=== PATIENT | female | born 1935 | race Caucasian/White ===

== ENCOUNTER 2017-05-01 13:52 | Outpatient (CLI) | payer MEDICARE, MEDICAID ==
--- NOTE | 2017-05-01 16:04 | ULT ---
ULTRASOUND WITH DOPPLER DUPLEX VENOUS LEFT LOWER EXTREMITY: CPT: 32997 ICD-10-PCS: B54D INDICATIONS: Left leg edema. TECHNIQUE: Color-flow Doppler, spectral wave-form analysis of pulsed Doppler, and Whiteside-scale imaging with compr ession and augmentation were used to evaluate the bilateral common femoral, femoral, popliteal, post erior tibial, and superficial femoral veins, and the proximal portions of the profunda femoral and g reater saphenous veins. FINDINGS: Appropriate compressibility and flow without evidence of DVT of the imaged left lower extremity. IMPRESSION: No deep venous thrombosis. POS: [facility]
== END 2017-05-01 13:53 | disposition home or self-care (01) ==
LOC: SCSULT 13:52
PROVIDERS: ATTEND Family Medicine
DX: R60.0 Localized edema (principal)

== ENCOUNTER 2017-07-05 09:19 | Outpatient (CLI) | payer MEDICARE, MEDICAID ==
--- NOTE | 2017-07-05 10:51 | ULT ---
HEPATIC ULTRASOUND WITH DOPPLER: History: Cirrhosis. Comparison: None. Technique: Grayscale, color flow, doppler imaging, and spectral waveform analysis was performed of th e liver. FINDINGS: The head of the pancreas has a normal echotexture. The remainder of the pancreas is obscured by bowel gas. There is right renal cortical thinning. The right kidney is not adequately accessed on this exam. Gallbladder is markedly filled with sludge and stones. The gallbladder is distended measuring 10.2 cm . No pericholecystic fluid. No Alcantara's sign. Gallbladder wall thickness is 0.25 cm. Common bile duct diameter is 0.4 cm. Spleen is enlarged measuring 15.1 cm. Hepatic parenchyma has a heterogeneous echotexture. Mild lobulation of the hepatic margin. No obvious hepatic mass. HEPATIC DOPPLER: There is patency and appropriate directional flow main portal vein, right portal vein, left portal ve in, hepatic artery, left hepatic vein, middle hepatic vein, middle hepatic vein, right hepatic vein, splenic vein and arteries. IMPRESSION: 1. Normal hepatic doppler. 2. Markedly distended gallbladder filled with sludge and stones. There is no evidence of cholecystiti s. If there is concern, consider HIDA scan. 3. Cirrhotic changes of the liver with nodularity of the hepatic margin. No obvious hepatic masses. 4. Splenomegaly. POS: [facility]
== END 2017-07-05 09:20 | disposition home or self-care (01) ==
LOC: ULT 09:19
PROVIDERS: ATTEND Internal Medicine Gastroenterology
DX: K74.60 Unspecified cirrhosis of liver (principal); K80.20 Calculus of gallbladder without cholecystitis without obstruction; R16.1 Splenomegaly, not elsewhere classified; R63.4 Abnormal weight loss
CPT/HCPCS: 76705

== ENCOUNTER 2018-03-28 14:15 | Outpatient (CLI) | payer MEDICARE, MEDICAID ==
--- NOTE | 2018-03-28 15:21 | CT ---
CT BRAIN WITHOUT CONTRAST: Date: 03/28/18 HISTORY: Syncope and collapse, fall. FINDINGS: There are changes of cortical atrophy and chronic small vessel ischemic disease. No evidence of infar ct, hemorrhage, midline shift, or abnormal extra-axial fluid collections are seen. A 4.0 mm colloid c yst is seen at the foramen of Monro. The ventricular size is appropriate and the basilar cisterns ar e patent. The bony calvarium is intact. The visualized paranasal sinuses and mastoid air cells are we ll aerated. IMPRESSION: No CT evidence of acute intracranial process. POS: [facility]
== END 2018-03-28 14:16 | disposition home or self-care (01) ==
LOC: BICCT 14:15
PROVIDERS: ATTEND Internal Medicine Cardiovascular Disease
DX: R55 Syncope and collapse (principal)
CPT/HCPCS: 70450

== ENCOUNTER 2018-06-05 05:20 | Emergency (ER) | payer MEDICARE, MEDICAID ==
--- NOTE | 2018-06-05 08:05 | RAD ---
THREE VIEWS LEFT SHOULDER: HISTORY: Fall. Pain. COMPARISON: None. FINDINGS: Glenohumeral joint space is preserved. No evidence of fracture with regards to the proximal left hum erus. There is a displaced fracture involving the mid portion of the left clavicle. Ribs are unrema rkable. IMPRESSION: Left clavicle fracture. Results of the study discussed with Dr. Treadwell 06/05/2018 at 7:37 a.m. CODE CR POS: [facility]
== END 2018-06-05 07:02 | disposition home or self-care (01) ==
LOC: ERS 05:20
DX: S43.402A Unspecified sprain of left shoulder joint, initial encounter (principal); S80.211A Abrasion, right knee, initial encounter; J45.909 Unspecified asthma, uncomplicated; E11.9 Type 2 diabetes mellitus without complications; Z79.899 Other long term (current) drug therapy; Z79.82 Long term (current) use of aspirin; Z79.4 Long term (current) use of insulin; W19.XXXA Unspecified fall, initial encounter
CPT/HCPCS: 36416

== ENCOUNTER 2018-10-21 08:52 | Outpatient (CLI) | payer MEDICARE, MEDICAID ==
--- NOTE | 2018-10-21 11:35 | ULT ---
LIVER ULTRASOUND INCLUDING COLOR AND SPECTRAL DOPPLER IMAGING: Date: 10/21/18 HISTORY: Cirrhosis. COMPARISON: 07/05/17. FINDINGS: Coarse altered liver echogenicity with some nodularity which certainly could be consistent with cirrh osis. Gallbladder is distended and contains extensive gallstones without overt gallbladder wall thick ening or pericholecystic fluid. Common bile duct 0.2 cm. Splenomegaly. Vascular duplex demonstrates antegrade hepatic venous and hepatic arterial and portal venous flow. IMPRESSION: Extensive gallstones within the gallbladder, without overt gallbladder wall thickening or pericholecy stic fluid. Coarse altered liver echogenicity with some nodularity, which certainly could be consiste nt with cirrhosis. Splenomegaly. Antegrade hepatic and portal venous flow. POS: [facility]
== END 2018-10-21 08:53 | disposition home or self-care (01) ==
LOC: ULT 08:52
PROVIDERS: ATTEND Internal Medicine Nephrology
DX: K74.60 Unspecified cirrhosis of liver (principal); E11.22 Type 2 diabetes mellitus with diabetic chronic kidney disease; N18.3 Chronic kidney disease, stage 3 (moderate); I25.10 Atherosclerotic heart disease of native coronary artery without angina pectoris; K80.80 Other cholelithiasis without obstruction; R16.1 Splenomegaly, not elsewhere classified
CPT/HCPCS: 76705; 76770

== ENCOUNTER 2018-11-19 16:47 | Emergency (ER) | payer MEDICARE, MEDICAID ==
[2018-11-19 19:52] LABS: #Eosinphils 0.1 thou/uL (0.0-0.7); #Lymphocytes 0.8 thou/uL (1.20-3.40); #Monocytes 0.5 thou/uL (0.11-0.59); %Basophils 0.3 % (0.0-1.0); %Eosinophils 2.5 % (0.0-10.0); %Monocytes 9.3 % (0.0-10.0); %Neutrophils 72.9 % (42.0-75.0); Hemoglobin 11.6 g/dL (12.0-16.0); Mean Corpuscular HGB CONC 33.4 g/dL (32.0-36.0); Mean Corpuscular Hemoglobin 28.9 pg (27.0-31.0); Mean Corpuscular Volume 86.5 fL (78.0-98.0); Mean Platelet Volume 8.3 fL (7.4-10.4); Platelet Count 152 thou/uL (130-400); RBC Distribution Width 12.7 % (11.5-14.5); Red Blood Cell (RBC) Count 4.01 mill/uL (4.20-5.40); White Blood Cell (WBC) Count 5.4 thou/uL (4.8-10.8)
[2018-11-19 20:12] LABS: Anion Gap 15 mmol/L (10-20); BUN (Urea Nitrogen) 24 mg/dL (9.8-20.1); Calc. Creatinine Clearance 0 mL/min (70-130); Calcium 9.9 mg/dL (7.8-10.44); Carbon Dioxide 26 mmol/L (23-31); Chloride 99 mmol/L (98-107); Estimated GFR-MDRD 32; Glucose 289 mg/dL (83-110); Potassium 4.3 mmol/L (3.5-5.1); Sodium 136 mmol/L (136-145)
== END 2018-11-20 00:43 | disposition home or self-care (01) ==
LOC: ERS 16:47
DX: I95.9 Hypotension, unspecified (principal); R42 Dizziness and giddiness; J45.909 Unspecified asthma, uncomplicated; E11.9 Type 2 diabetes mellitus without complications
CPT/HCPCS: 36416; 80048; 85025; 96360; 96361

== ENCOUNTER 2019-04-02 07:43 | Outpatient (CLI) | payer MEDICARE, MEDICAID ==
--- NOTE | 2019-04-02 09:59 | ULT ---
PELVIC ULTRASOUND: Transabdominal ultrasound of pelvis performed. The patient is unable to tolerate endovaginal exam. INDICATION: Right lower quadrant pain. FINDINGS: Uterus is small consistent with the patient's age. The uterus appears unremarkable. The right ovary is visualized and is unremarkable. Color Doppler with spectral analysis shows blood flow to the rig ht ovary. The left ovary is not identified. No fluid or mass seen. IMPRESSION: Unremarkable pelvic ultrasound. The left ovary is not identified. POS: [facility]
== END 2019-04-02 07:44 | disposition home or self-care (01) ==
LOC: BICULT 07:43
PROVIDERS: ATTEND Physician Assistant Medical
DX: K74.60 Unspecified cirrhosis of liver (principal); R10.30 Lower abdominal pain, unspecified
CPT/HCPCS: 76856; 93976

== ENCOUNTER 2019-04-29 08:47 | Outpatient (CLI) | payer MEDICARE, MEDICAID ==
--- NOTE | 2019-04-29 10:48 | ULT ---
HEPATIC SONOGRAM WITH DUPLEX EVALUATION: HISTORY: Cirrhosis. FINDINGS: The gallbladder is surgically absent. The common duct is 0.4 cm. The liver is heterogeneous with a no dular contour. Small amount of free fluid. The spleen measures up to 17.2 cm. Good color and spectral Doppler flow within the hepatic and splenic arteries. Portal venous flow is t owards the liver. Hepatic venous flow is towards the IVC. IMPRESSION: 1. Status post cholecystectomy. No evidence of biliary obstruction. 2. Cirrhotic appearance of the liver. Findings of portal venous hypertension include moderate splenom egaly and a small amount of ascites. 3. Appropriate directional portal venous flow. POS: [facility]
== END 2019-04-29 08:48 | disposition home or self-care (01) ==
LOC: BICULT 08:47
PROVIDERS: ATTEND Internal Medicine Gastroenterology
DX: K74.60 Unspecified cirrhosis of liver (principal); R10.30 Lower abdominal pain, unspecified; Z90.49 Acquired absence of other specified parts of digestive tract
CPT/HCPCS: 36415; 76705; 80053; 82105; 85025

== ENCOUNTER 2019-06-09 07:22 | Day surgery (SDC) | payer MEDICARE, MEDICAID ==
[2019-06-08 17:54] VITALS: BMI 23.1
[~2019-06-09 07:22] MED LIST: EPINEPHrine 0.3 MG in Ophthalmic Irrigation Solution 500 ML IRR SCH
[2019-06-09] MEDS ORDERED: Phenylephrine 2.5% Ophth Soln 5 ML BOT ONE (08:11)
[2019-06-09] MEDS ORDERED: Cyclopentolate 1% Opth Drop 2 ML BOT ONE (08:11)
[2019-06-09] MEDS ORDERED: Fentanyl 100 MCG/2 ML VIAL ONE (08:49)
[2019-06-09] MEDS ORDERED: Triamcinolone 40 MG/ML VIAL ONE (09:58)
[2019-06-09] MEDS ORDERED: Lidocaine 4% PF 5 ML AMP ONE (09:58)
[2019-06-09] MEDS ORDERED: Lidocaine 1% PF 5 ML VIAL ONE (09:58)
[2019-06-09] MEDS ORDERED: Bupivacaine PF 0.75% SDV 10 ML ONE (09:58)
[2019-06-09] MEDS ORDERED: Maxitrol 0.1% Opth Oint 3.5 GM TUBE ONE (09:58)
[2019-06-09] MEDS ORDERED: PROPOFOL 200 MG/20 ML VIAL ONE (09:58)
[2019-06-09] MEDS ORDERED: CEFAZOLIN 1 GM VIAL ONE (09:58)
--- NOTE | 2019-06-09 14:29 | OP ---
DATE OF PROCEDURE: 06/09/2019 PRINCIPAL PREOPERATIVE DIAGNOSIS: Vitreomacular traction syndrome, right eye. POSTOPERATIVE DIAGNOSIS: Vitreomacular traction syndrome, right eye. NAME OF PROCEDURES PERFORMED: 1. 25-gauge pars plana vitrectomy, right eye. 2. Membrane peel, right eye. ESTIMATED BLOOD LOSS: None. SPECIMENS REMOVED: None. COMPLICATIONS: None. ANESTHESIA: MAC with retrobulbar block. SUMMARY OF OPERATION: The patient was identified in the preoperative holding area, where the correct eye being the right eye was marked for surgery. The patient was taken to the operating room, where MAC anesthesia was induced. A retrobulbar block was administered to the right eye. The block consisted of 1:1 ratio of 4% lidocaine and 0.75% Marcaine. Total of 5 mL was administered. The right eye was then prepped and draped in the usual sterile ophthalmic fashion for surgery. A wire-clip lid speculum was placed. A standard 25-gauge pars plana vitrectomy platform was fashioned with trocars placed approximately 3.5 mm from the limbus. The infusion was noted to be within the vitreous cavity prior to being turned on to an infusion pressure of 30 mmHg. The light pipe and microvitrector were introduced in the eye under visualization of the BIOM viewing system. A careful core vitrectomy was performed followed by injection of Kenalog. Subsequently, a gentle posterior vitreous detachment was created, which allowed for significant relaxation of the retina. Subsequently, a peripheral shave vitrectomy was performed. A 360-degree scleral depressed exam of the periphery revealed no defects. A close examination of the macula under high magnification revealed no macular hole. The cannulas were sequentially removed and all sclerotomies were noted to be watertight. Subconjunctival Ancef and Kenalog were injected. The wire-clip lid speculum was removed followed by application of TobraDex ophthalmic ointment and a light patch and shield. The patient tolerated the procedure well and was taken to the outpatient recovery room in good condition. Job ID: [id number]
== END 2019-06-09 10:40 | disposition home or self-care (01) ==
LOC: SDC 07:22
PROVIDERS: ATTEND Ophthalmology Retina Specialist
PROC: 08T43ZZ Resection of Right Vitreous, Percutaneous Approach (ICD-10-PCS; principal; 2019-06-09)
DX: H43.821 Vitreomacular adhesion, right eye (principal); E10.9 Type 1 diabetes mellitus without complications; M19.90 Unspecified osteoarthritis, unspecified site; I10 Essential (primary) hypertension; E78.5 Hyperlipidemia, unspecified; I25.10 Atherosclerotic heart disease of native coronary artery without angina pectoris; Z79.82 Long term (current) use of aspirin; Z79.899 Other long term (current) drug therapy; Z88.2 Allergy status to sulfonamides; Z88.8 Allergy status to other drugs, medicaments and biological substances; Z91.013 Allergy to seafood; Z91.041 Radiographic dye allergy status
CPT/HCPCS: 36416; J0171; J0690; J2001; J2704; J3010; J3301; J3490

== ENCOUNTER 2019-06-18 09:13 | Day surgery (SDC) | payer MEDICARE, MEDICAID ==
[2019-06-17 16:32] VITALS: BMI 23.1
[2019-06-18 09:26] LABS: #Eosinphils 0.1 thou/uL (0.0-0.7); #Lymphocytes 0.8 thou/uL (1.20-3.40); #Monocytes 0.7 thou/uL (0.11-0.59); %Basophils 0.7 % (0.0-1.0); %Eosinophils 1.9 % (0.0-10.0); %Lymphocytes 11.5 % (21.0-51.0); %Monocytes 10.4 % (0.0-10.0); %Neutrophils 75.5 % (42.0-75.0); Hemoglobin 10.8 g/dL (12.0-16.0); Mean Corpuscular HGB CONC 31.6 g/dL (32.0-36.0); Mean Corpuscular Hemoglobin 24.7 pg (27.0-31.0); Mean Corpuscular Volume 78.1 fL (78.0-98.0); Mean Platelet Volume 6.8 fL (7.4-10.4); Platelet Count 386 thou/uL (130-400); RBC Distribution Width 14.7 % (11.5-14.5); Red Blood Cell (RBC) Count 4.37 mill/uL (4.20-5.40); White Blood Cell (WBC) Count 6.6 thou/uL (4.8-10.8)
[2019-06-18 09:42] LABS: INR-International Normal Ratio 1.3
[2019-06-18 09:43] LABS: PTT 65.2 SEC (22.9-36.1)
[2019-06-18 12:11] VITALS: BP 133/72; TEMP 97.4
--- NOTE | 2019-06-18 12:12 | ULT ---
Exam: Ultrasound guided paracentesis HISTORY: Ascites COMPARISON: None FINDINGS: Successful ultrasound-guided paracentesis. Total of 5 L of normal appearingascites was aspi rated. TECHNIQUE: Consent obtained reformatory ultrasound-guided paracentesis. Right lower quadrant was deem ed appropriate. Skin was prepped and draped in a sterile fashion. 1% lidocaine, buffered with sodium bicarbonate was used for local anesthesia. Under ultrasound guidance, a 5 Dutch 7 cm Yueh cat heter is advanced in the peritoneal space. A total of 5 L of normal appearingascites was aspirated. No immediate or postprocedural complications IMPRESSION: Successful ultrasound-guided paracentesis.
[2019-06-18 12:59] LABS: RBC Count-Automated (BF) 348 /cumm; WBC/Nucleated-Auto (BF) 725 uL
[2019-06-18 13:05] LABS: Body Fluid Source Ascites Body Fluid
[2019-06-18 13:06] LABS: BF Color Yellow; Clarity Hazy (Clear); Tube # EDTA
[2019-06-18 13:14] LABS: BF Segmented Neutrophils 14 %; Cell Count Non Hematic 85 %; Lymphocytes 1 %
== END 2019-06-18 11:35 | disposition home or self-care (01) ==
LOC: ULT 09:13
PROVIDERS: ATTEND Internal Medicine Nephrology
PROC: 0W9G3ZZ Drainage of Peritoneal Cavity, Percutaneous Approach (ICD-10-PCS; principal; 2019-06-18)
DX: R18.8 Other ascites (principal); I10 Essential (primary) hypertension; E10.9 Type 1 diabetes mellitus without complications; J45.909 Unspecified asthma, uncomplicated; I25.10 Atherosclerotic heart disease of native coronary artery without angina pectoris; M19.90 Unspecified osteoarthritis, unspecified site; Z79.4 Long term (current) use of insulin; Z79.82 Long term (current) use of aspirin; Z79.899 Other long term (current) drug therapy; Z88.2 Allergy status to sulfonamides; Z88.8 Allergy status to other drugs, medicaments and biological substances; Z91.041 Radiographic dye allergy status; Z95.0 Presence of cardiac pacemaker; Z95.1 Presence of aortocoronary bypass graft
CPT/HCPCS: 36415; 49083; 84157; 85025; 85060; 85610; 85730; 87070; 87205; 88112; 88305; 89051

== ENCOUNTER 2019-07-03 10:11 | Emergency (ER) | payer MEDICARE, MEDICAID ==
--- NOTE | 2019-07-03 11:14 | CT ---
Exam: CT brain PROVIDED CLINICAL HISTORY: Trauma COMPARISON: 03/28/2018 FINDINGS: The ventricular system is normal in size and morphology. No evidence for intracranial hemorrhage or mass effect. The extracranial soft tissues and osseous structures demonstrate no evidence for an acute abnormality. Conspicuous vascular calcifications are seen involving the vertebrobasilar and int racranial carotid system. IMPRESSION: No evidence for intracranial hemorrhage or mass effect.
[2019-07-03] MEDS ORDERED: Acetaminophen/Codeine 30-300mg Tablet ONE (11:18)
--- NOTE | 2019-07-03 11:21 | CT ---
EXAM: CT Facial Bones WO Con PROVIDED CLINICAL HISTORY: Trauma COMPARISON: None FINDINGS: Comminuted mildly displaced bilateral nasal bone and nasal process maxilla fractures. Nondisplaced co mminuted bony nasal septal fracture. Leftward nasal septal deviation with nasal septal spur. No additional fracture is evident. The paranasal sinuses are free of significant opacity. The globes and other orbital contents demonstrate no significant abnormality. IMPRESSION: Nasal bone, nasal process maxilla and bony nasal septal fractures as described.
--- NOTE | 2019-07-03 11:22 | CT ---
CT CERVICAL SPINE WITH CORONAL AND SAGITTAL REFORMATIONS AND NO IV CONTRAST: HISTORY: Trauma, neck pain FINDINGS: Multilevel degenerative changes are present. No fracture, subluxation or facet malalignment is identified. No prevertebral soft tissue swelling is apparent. The visualized lung apices are unremarkable. IMPRESSION: No CT evidence for fracture or traumatic subluxation.
--- NOTE | 2019-07-03 11:44 | RAD ---
RADIOGRAPH LEFT SHOULDER TWO VIEWS: 07/03/2019 10:33 a.m. HISTORY: An 84-year-old female status post acute left shoulder trauma due to fall. FINDINGS: There is a comminuted fracture of the proximal humeral diaphysis, including large butterfly fragment, with moderate displacement, and medial angulation of the fracture apex. No dislocation of the glenoh umeral joint. Old healed fracture deformity of the mid clavicular shaft. Left subclavian dual-lead pa cemaker. No fracture of humeral head. IMPRESSION: Acute, traumatic, comminuted, displaced left proximal humeral shaft fracture. POS: [facility]
== END 2019-07-03 12:15 | disposition home or self-care (01) ==
LOC: ERS 10:11
DX: S09.90XA Unspecified injury of head, initial encounter (principal); S16.1XXA Strain of muscle, fascia and tendon at neck level, initial encounter; S42.355A Nondisplaced comminuted fracture of shaft of humerus, left arm, initial encounter for closed fracture; E11.9 Type 2 diabetes mellitus without complications; J45.909 Unspecified asthma, uncomplicated; Z79.82 Long term (current) use of aspirin; Z79.899 Other long term (current) drug therapy; Z79.4 Long term (current) use of insulin; W01.0XXA Fall on same level from slipping, tripping and stumbling without subsequent striking against object, initial encounter
CPT/HCPCS: 70450; 70486; 72125

== ENCOUNTER 2019-09-16 08:01 | Day surgery (SDC) | payer MEDICARE, MEDICAID ==
[2019-09-15 13:10] VITALS: BMI 22.4
[2019-09-16] MEDS ORDERED: Lidocaine 1% PF 5 ML VIAL ONE (08:18)
[2019-09-16] MEDS ORDERED: Sodium Bicarbonate 2.5 MEQ/5 ML VIAL ONE (08:18)
[2019-09-16 08:35] LABS: #Eosinphils 0.1 thou/uL (0.0-0.7); #Lymphocytes 0.8 thou/uL (1.20-3.40); #Monocytes 0.7 thou/uL (0.11-0.59); #Neutrophils 4.6 thou/uL (1.40-6.50); %Basophils 0.3 % (0.0-1.0); %Eosinophils 1.7 % (0.0-10.0); %Lymphocytes 13.5 % (21.0-51.0); %Monocytes 10.8 % (0.0-10.0); %Neutrophils 73.7 % (42.0-75.0); Hemoglobin 9.6 g/dL (12.0-16.0); Mean Corpuscular HGB CONC 31.2 g/dL (32.0-36.0); Mean Corpuscular Hemoglobin 23.3 pg (27.0-31.0); Mean Corpuscular Volume 74.6 fL (78.0-98.0); Mean Platelet Volume 6.7 fL (7.4-10.4); Platelet Count 402 thou/uL (130-400); RBC Distribution Width 15.4 % (11.5-14.5); Red Blood Cell (RBC) Count 4.14 mill/uL (4.20-5.40); White Blood Cell (WBC) Count 6.2 thou/uL (4.8-10.8)
[2019-09-16 08:37] LABS: INR-International Normal Ratio 1.1; PTT 43.4 SEC (22.9-36.1); Prothrombin Time 14.5 SEC (12.0-14.7)
[2019-09-16 08:52] LABS: Hypochromia SLIGHT = 6-15 cells (100X) (0-5/hpf); MDiff Complete? YES; Microcytosis SLIGHT = 6-15 cells (100X) (0-5/hpf); Platelet Morphology Comment Appears Increased; Polychromasia SLIGHT = 2-3 cells (100X) (0-2/hpf)
--- NOTE | 2019-09-16 09:45 | ULT ---
PREPROCEDURE DIAGNOSIS: Ascites POST PROCEDURE DIAGNOSIS: Same PROCEDURE: Ultrasound-guided paracentesis [employer] CLERK: Aly ANESTHESIA: 6 mL of buffered 1% lidocaine. SPECIMEN: 6 L of straw-colored fluid TECHNIQUE: Prior to the procedure, the risks and benefits of an ultrasound guided paracentesis were explained to the patient which consented fully to the procedure. The area of the largest fluid collection was seen in the right lower quadrant of the abdomen. This a garrison was prepped and draped in the usual sterile fashion. Lidocaine was used to anesthetize the skin and soft tissues down towards the peritoneal cavity. The p eritoneum was anesthetized. A small skin incision was made for passage of the Ablexiseh needle and catheter. This device was then placed using ultrasound guidance into the peritoneal cavity. The needle was removed after return of fluid. The catheter was then connected to multiple Vacutainer bottles. A total of 6 L was removed. A moderate amount of residual fluid is seen in this region of the periton eal cavity. IMPRESSION: Status post successful ultrasound-guided paracentesis
[2019-09-16 10:15] VITALS: BP 112/60; TEMP 97.6
== END 2019-09-16 09:45 | disposition home or self-care (01) ==
LOC: ULT 08:01
PROVIDERS: ATTEND Physician Assistant Medical
PROC: 0W9G3ZZ Drainage of Peritoneal Cavity, Percutaneous Approach (ICD-10-PCS; principal; 2019-09-16)
DX: K74.60 Unspecified cirrhosis of liver (principal); R18.8 Other ascites; E11.22 Type 2 diabetes mellitus with diabetic chronic kidney disease; N18.9 Chronic kidney disease, unspecified; J45.909 Unspecified asthma, uncomplicated; Z79.4 Long term (current) use of insulin; Z79.82 Long term (current) use of aspirin; Z79.899 Other long term (current) drug therapy; Z88.2 Allergy status to sulfonamides; Z88.8 Allergy status to other drugs, medicaments and biological substances; Z91.018 Allergy to other foods; Z91.041 Radiographic dye allergy status; Z95.1 Presence of aortocoronary bypass graft; Z95.2 Presence of prosthetic heart valve
CPT/HCPCS: 49083; 85025; 85610; 85730; J2001

== ENCOUNTER 2019-10-06 12:54 | Day surgery (SDC) | payer MEDICARE, MEDICAID ==
[2019-10-05 14:44] VITALS: BMI 23.1
[~2019-10-06 12:54] MED LIST changes: +Albumin 25% 200 ML ONE; -EPINEPHrine 0.3 MG in Ophthalmic Irrigation Solution 500 ML IRR SCH; +Lidocaine 1% PF 5 ML VIAL ONE; +Sodium Bicarbonate 2.5 MEQ/5 ML VIAL ONE
[2019-10-06 13:28] LABS: Anion Gap 11 mmol/L (10-20); BUN (Urea Nitrogen) 23 mg/dL (9.8-20.1); Calc. Creatinine Clearance 37 mL/min (70-130); Calcium 8.7 mg/dL (7.8-10.44); Carbon Dioxide 29 mmol/L (23-31); Chloride 90 mmol/L (98-107); Estimated GFR-MDRD 42; Glucose 488 mg/dL (83-110); Potassium 5.1 mmol/L (3.5-5.1); Sodium 125 mmol/L (136-145)
[2019-10-06 14:35] VITALS: BP 124/64; TEMP 98.6
--- NOTE | 2019-10-06 14:39 | ULT ---
Exam: Ultrasound guided paracentesis HISTORY: Ascites COMPARISON: 09/16/2019 FINDINGS: Successful ultrasound-guided paracentesis. Total of 5.7 L of yellow color ascites was aspir ated. TECHNIQUE: Consent obtained reformatory ultrasound-guided paracentesis. Right lower quadrant was deem ed appropriate. Skin was prepped and draped in a sterile fashion. 1% lidocaine, buffered with sodium bicarbonate was used for local anesthesia. Under ultrasound guidance, a 5 Portuguese 7 cm Yueh cat heter is advanced in the peritoneal space. A total of 5.7 L of yellow color ascites was aspirated. No immediate or postprocedural complications IMPRESSION: Successful ultrasound-guided paracentesis.
== END 2019-10-06 14:30 | disposition home or self-care (01) ==
LOC: ULT 12:54
PROVIDERS: ATTEND Physician Assistant Medical
PROC: 0W9G3ZZ Drainage of Peritoneal Cavity, Percutaneous Approach (ICD-10-PCS; principal; 2019-10-06)
DX: K74.60 Unspecified cirrhosis of liver (principal); R18.8 Other ascites; K76.0 Fatty (change of) liver, not elsewhere classified; E11.22 Type 2 diabetes mellitus with diabetic chronic kidney disease; N18.9 Chronic kidney disease, unspecified; Z79.4 Long term (current) use of insulin; Z79.82 Long term (current) use of aspirin; Z79.899 Other long term (current) drug therapy; Z88.2 Allergy status to sulfonamides; Z88.6 Allergy status to analgesic agent; Z88.8 Allergy status to other drugs, medicaments and biological substances; Z91.018 Allergy to other foods; Z91.041 Radiographic dye allergy status; Z95.1 Presence of aortocoronary bypass graft; Z95.4 Presence of other heart-valve replacement
CPT/HCPCS: 49083; 80048; 82042; P9047; 36415; J2001

== ENCOUNTER 2019-10-22 08:15 | Day surgery (SDC) | payer MEDICARE, MEDICAID ==
--- NOTE | 2018-10-21 10:26 | ULT ---
Exam: Bilateral renal ultrasound HISTORY: Stage III chronic kidney disease COMPARISON: None FINDINGS: Right kidney: Normal cortical echotexture. No hydronephrosis. There is significant right renal cortic al thinning Right kidney measurements: 5.3 x 5.8 x 10.7 cm Left kidney: Normal cortical echotexture. No hydronephrosis. Mild left renal cortical thinning Left kidney measurements 4.6 x 5.6 x 10.9 cm Urinary bladder: Normal mucosa. Prevoid volume 155 cc IMPRESSION: No hydronephrosis.
[2019-10-21 13:54] VITALS: BMI 23.1
[2019-10-22] MEDS ORDERED: Sodium Bicarbonate 2.5 MEQ/5 ML VIAL ONE (08:21)
[2019-10-22] MEDS ORDERED: Lidocaine 1% PF 5 ML VIAL ONE (08:21)
[2019-10-22 08:42] LABS: #Eosinphils 0.1 thou/uL (0.0-0.7); #Lymphocytes 0.5 thou/uL (1.20-3.40); #Monocytes 0.5 thou/uL (0.11-0.59); #Neutrophils 3.5 thou/uL (1.40-6.50); %Basophils 0.7 % (0.0-1.0); %Eosinophils 1.7 % (0.0-10.0); %Monocytes 11.3 % (0.0-10.0); %Neutrophils 76.3 % (42.0-75.0); Hemoglobin 9.4 g/dL (12.0-16.0); Mean Corpuscular Hemoglobin 22.4 pg (27.0-31.0); Mean Corpuscular Volume 74.8 fL (78.0-98.0); Mean Platelet Volume 7.2 fL (7.4-10.4); Platelet Count 233 thou/uL (130-400); RBC Distribution Width 16.1 % (11.5-14.5); White Blood Cell (WBC) Count 4.5 thou/uL (4.8-10.8)
[2019-10-22 08:55] LABS: INR-International Normal Ratio 1.2; PTT 45.7 SEC (22.9-36.1); Prothrombin Time 14.9 SEC (12.0-14.7)
[2019-10-22 09:37] LABS: ALT (SGPT) 9 U/L (8-55); AST (SGOT) 17 U/L (5-34); Albumin 3.1 g/dL (3.4-4.8); Alkaline Phosphatase 131 U/L (40-110); Anion Gap 11 mmol/L (10-20); BUN (Urea Nitrogen) 22 mg/dL (9.8-20.1); Bilirubin, Total 0.5 mg/dL (0.2-1.2); Calc. Creatinine Clearance 43 mL/min (70-130); Calcium 8.9 mg/dL (7.8-10.44); Carbon Dioxide 28 mmol/L (23-31); Chloride 99 mmol/L (98-107); Estimated GFR-MDRD 49; Globulin 3.7 g/dL (2.4-3.5); Glucose 69 mg/dL (83-110); Potassium 4.4 mmol/L (3.5-5.1); Protein, Total 6.8 g/dL (6.0-8.3); Sodium 134 mmol/L (136-145)
--- NOTE | 2019-10-22 10:09 | ULT ---
HEPATIC DOPPLER ULTRASOUND: COMPARISON: 04/29/2019. TECHNIQUE: Grayscale, color flow, Doppler imaging and spectral waveform analysis performed of the liver. FINDINGS: Nodular margin and contour of the liver compatible with cirrhotic change. No obvious hepatic masses. Right hepatic lobe measures 19.3 cm. Spleen is enlarged, measuring 14.6 cm. Homogeneous echotexture. Common bile duct diameter is 0.8 cm. The head of the pancreas has a normal echotexture. The remainder the pancreas is obscured by bowel ga s. Extensive sludge and stones within the lumen of the gallbladder. Gallbladder wall is not thickened. N o pericholecystic fluid. Negative Alcantara's sign. There is evidence of perihepatic ascites. Hepatic Doppler: There is appropriate directional flow in the left hepatic vein, middle hepatic vein, right hepatic ve in, left portal vein, right portal vein, main portal vein and hepatic artery. The splenic vein and artery also have appropriate directional flow. IMPRESSION: 1. Cirrhotic change of the liver. 2. Ascites. 3. Normal hepatic Doppler. 4. Extensive sludge and stones within the lumen of the gallbladder. No sonographic evidence of the cy stitis. However, the gallbladder is significantly filled with sludge and stones. HIDA scan if clinically warranted. Transcribed Date/Time: 10/22/2019 10:33 AM
[2019-10-22 10:43] LABS: Hypochromia SLIGHT = 6-15 cells (100X) (0-5/hpf); MDiff Complete? YES; Microcytosis SLIGHT = 6-15 cells (100X) (0-5/hpf); Platelet Morphology Comment Appears Adequate; Polychromasia SLIGHT = 2-3 cells (100X) (0-2/hpf)
[2019-10-22 10:56] VITALS: BP 130/61; TEMP 97
[2019-10-22 12:17] LABS: RBC Count-Automated (BF) 556 /cumm; WBC/Nucleated-Auto (BF) 1373 uL
[2019-10-22 12:25] LABS: BF Color Yellow; Body Fluid Source Ascites Body Fluid; Clarity Hazy (Clear); Tube # EDTA
[2019-10-22 12:52] LABS: Eosinophils 3 %; Lymphocytes 24 %
[2019-10-22 12:53] LABS: BF Segmented Neutrophils 35 %; Cell Count Non Hematic 38 %
== END 2019-10-22 10:15 | disposition home or self-care (01) ==
LOC: ULT 08:15 → MERGE 13:00
PROVIDERS: ATTEND Internal Medicine Gastroenterology
PROC: 0W9G3ZX Drainage of Peritoneal Cavity, Percutaneous Approach, Diagnostic (ICD-10-PCS; principal; 2019-10-22)
DX: K74.60 Unspecified cirrhosis of liver (principal); R18.8 Other ascites; E11.22 Type 2 diabetes mellitus with diabetic chronic kidney disease; N18.3 Chronic kidney disease, stage 3 (moderate); K80.80 Other cholelithiasis without obstruction; J45.909 Unspecified asthma, uncomplicated; Z79.4 Long term (current) use of insulin; Z79.51 Long term (current) use of inhaled steroids; Z79.82 Long term (current) use of aspirin; Z79.899 Other long term (current) drug therapy; Z88.2 Allergy status to sulfonamides; Z88.3 Allergy status to other anti-infective agents; Z88.6 Allergy status to analgesic agent; Z88.8 Allergy status to other drugs, medicaments and biological substances; Z91.018 Allergy to other foods; Z95.1 Presence of aortocoronary bypass graft; Z95.0 Presence of cardiac pacemaker; Z95.2 Presence of prosthetic heart valve
CPT/HCPCS: 36415; 49083; 76705; 76770; 80053; 82042; 82105; 85025; 85060; 85610; 85730; 87070; 87205; 89051; J2001

== ENCOUNTER 2019-10-30 09:03 | Inpatient (IN) | payer MEDICARE, MEDICAID ==
[2019-10-30 09:44] LABS: #Eosinphils 0.1 thou/uL (0.0-0.7); #Lymphocytes 0.5 thou/uL (1.20-3.40); #Monocytes 0.4 thou/uL (0.11-0.59); #Neutrophils 4.2 thou/uL (1.40-6.50); %Basophils 0.9 % (0.0-1.0); %Eosinophils 2.5 % (0.0-10.0); %Lymphocytes 9.6 % (21.0-51.0); %Monocytes 7.3 % (0.0-10.0); %Neutrophils 79.8 % (42.0-75.0); Hemoglobin 9.7 g/dL (12.0-16.0); Mean Corpuscular HGB CONC 30.1 g/dL (32.0-36.0); Mean Corpuscular Hemoglobin 22.4 pg (27.0-31.0); Mean Corpuscular Volume 74.3 fL (78.0-98.0); Mean Platelet Volume 7.4 fL (7.4-10.4); Platelet Count 252 thou/uL (130-400); RBC Distribution Width 16.1 % (11.5-14.5); Red Blood Cell (RBC) Count 4.32 mill/uL (4.20-5.40); White Blood Cell (WBC) Count 5.2 thou/uL (4.8-10.8)
--- NOTE | 2019-10-30 10:05 | CT ---
EXAM: CT cervical spine PROVIDED CLINICAL HISTORY: Injury after a fall. Dizziness. TECHNIQUE: Contiguous axial CT images are obtained through the cervical spine from the skull base to the T1 leve l. Sagittal and coronal reformatted images are provided. COMPARISON: 07/03/2019 FINDINGS: Degenerative changes are again seen in the cervical spine not significantly progressed when compared to prior exam. Findings are greatest at the C5-6 and C6-7 levels where there is loss of intervertebral disc height and disc osteophyte complex present. Severe and moderate to severe left-si ded neural foraminal narrowing is present at the C5-6 level with severe left and moderate to severe right-sided neural foraminal narrowing at the C6-7 level. This is primarily related to bony encroachm ent. No fracture or traumatic subluxation is seen involving the cervical spine. No prevertebral soft tissue swelling apparent. Partially imaged lung apices demonstrates minimal biapical pleural parenchymal scarring. Calcification is present in the right lobe of thyroid gland with slight heterogeneity in this region. This is a stable finding. Evaluation of the mild disabilities teacher image demonstrates a mildly displaced and fracture involving the pr oximal right humeral diaphysis. Artifact overlies the proximal left humerus, but there is questionable fracture also involving the proximal left humerus. There is a remote healed fracture inv olving the left clavicle. Artifact is seen in the region of the right clavicle, this is probably artifactual. Dual lead left subclavian cardiac pacemaking device is partially imaged. IMPRESSION: 1. Mildly and displaced fracture proximal right humeral diaphysis with questionable fractur e also involving the left proximal humerus, but artifact is seen overlying the left proximal humerus which does limit evaluation. Views of each humerus are recommended. 2. Degenerative changes in the cervical spine without evidence of fracture or traumatic subluxation..
[2019-10-30 10:10] LABS: ALT (SGPT) 9 U/L (8-55); AST (SGOT) 16 U/L (5-34); Albumin 2.9 g/dL (3.4-4.8); Alkaline Phosphatase 139 U/L (40-110); Anion Gap 14 mmol/L (10-20); BUN (Urea Nitrogen) 17 mg/dL (9.8-20.1); Bilirubin, Total 0.4 mg/dL (0.2-1.2); Calc. Creatinine Clearance 0 mL/min (70-130); Carbon Dioxide 25 mmol/L (23-31); Chloride 96 mmol/L (98-107); Estimated GFR-MDRD 56; Globulin 3.6 g/dL (2.4-3.5); Glucose 164 mg/dL (83-110); Potassium 4.2 mmol/L (3.5-5.1); Protein, Total 6.5 g/dL (6.0-8.3); Sodium 131 mmol/L (136-145)
[2019-10-30 10:33] LABS: CKMB 3.4 ng/mL (0-6.6)
--- NOTE | 2019-10-30 11:18 | CT ---
CT HEAD WITHOUT CONTRAST: INDICATION: Fall with injury to head. COMPARISON: Comparison is made to head CT 07/03/2019. FINDINGS: Cortical atrophy is again noted. Ventricular size and position is normal for age. There is no evide nce of intracranial hemorrhage or mass. No evidence of acute infarct. No interval change from the p rior exam. Paranasal sinuses and mastoids appear clear. IMPRESSION: No acute finding. POS: [facility]
--- NOTE | 2019-10-30 11:44 | RAD ---
PORTABLE CHEST: HISTORY: Fall with chest pain. FINDINGS: Heart size is enlarged. There are postop sternotomy changes and a pacemaker. Lungs show some chroni c change without focal infiltrates. A spiral-type fracture of the right humeral shaft is present. T his appears acute. I do not visualize obvious acute rib fractures. There are what may be old rib fr actures present as there appears to be some bony callus formation. If the patient is having rib pain , rib films would be recommended. IMPRESSION: 1. Cardiomegaly with postop sternotomy change and aortic valve in place. There are chronic lung ruby nges but no signs of focal infiltrates. 2. Right humeral shaft fracture. POS: [facility]
--- NOTE | 2019-10-30 11:46 | RAD ---
RIGHT HUMERUS 3 IEWS: INDICATION: History of fall with right arm pain. FINDINGS: There is a spiral fracture involving the proximal humeral shaft that extends into the proximal metadi aphyseal region with surrounding soft tissue swelling and hematoma. No additional fracture is eviden t. There is diffuse osteopenia. There are healed rib deformities involving the right anterolateral chest wall. IMPRESSION: Mildly displaced spiral fracture of the right proximal humerus. POS: [facility]
[2019-10-30] MEDS ORDERED: Bacitracin 1 PK ONE (12:37)
[2019-10-30] MEDS ORDERED: Ondansetron PF 4 MG/2 ML Vial IVP PRN (13:20)
[2019-10-30] MEDS ORDERED: Dextrose 50% Abboject 50 ML SYRINGE SLOW IVP PRN (13:20)
[2019-10-30] MEDS ORDERED: Bisacodyl 10 MG SUPP PR PRN (13:20)
[2019-10-30] MEDS ORDERED: Dextrose 5% in Water 1,000 ML IV PRN (13:20)
[2019-10-30] MEDS ORDERED: Senokot S 8.6-50 MG TAB PO PRN (13:20)
[2019-10-30] MEDS ORDERED: Calcium Carbonate 500 MG ChewTAB PO PRN (13:20)
[2019-10-30] MEDS ORDERED: Sodium Chloride 0.9% 1,000 ML IV SCH (13:20)
[2019-10-30] MEDS ORDERED: Guaifenesin DM 100-10/5 ML UDCUP PO PRN (13:20)
[2019-10-30] MEDS ORDERED: Morphine 2 MG/ML SYRINGE SLOW IVP PRN (13:37)
[2019-10-30] MEDS ORDERED: Albuterol Sulfate 2.5 mg/3 ml Neb NEB PRN (13:45)
--- NOTE | 2019-10-30 13:48 | RAD ---
Exam:2 views left humerus HISTORY: Trauma. Fall. Pain. COMPARISON: None FINDINGS: Comminuted proximal humeral fracture. Callus formation suggests at least a subacute compone nt. IMPRESSION: Proximal humerus fracture with callus formation. Possibility of a subacute fractures mary etienne Results study discussed with Dr. Thompson 10/30/2019 at 1:45 PM Code CR
[2019-10-30 14:17] LABS: INR-International Normal Ratio 1.1; PTT 32.5 SEC (22.9-36.1); Prothrombin Time 14.5 SEC (12.0-14.7)
[2019-10-30] MEDS ORDERED: CEFAZOLIN 2 GM in Premix Bag 1 BAG IVPB SCH (14:30)
[2019-10-30 14:34] LABS: Digoxin 0.99 ng/mL (0.8-2.0)
--- NOTE | 2019-10-30 16:15 | HP ---
PRIMARY CARE PHYSICIAN: Dr. David Monroy. PRIMARY HEAD OF COMMISSION DEPARTMENT: Dr. Baron. REASON FOR ADMISSION: Bilateral humerus fractures, dizziness, and frequent falls. HISTORY OF PRESENTING ILLNESS: The patient gives history of falling multiple times at home, in fact the patient fractured her left humerus in July of this year, which was comminuted, displaced left proximal humerus shaft. The patient currently has fractured her right humerus, which is a spiral fracture in the proximal area. No complaints of chest pain, palpitations, PND or orthopnea. She has had paracentesis done on the 21 of October with removal of 6 L clear straw-colored fluid. The patient does not recall if she has heart failure. No complaints of fever, cough, or expectoration. She is not a good historian but has maintained a list of medical issues, operations in past and current medications which I cannot find here now. PAST MEDICAL AND SURGICAL HISTORY: Bovine aortic valve, KEVIN with cirrhosis, diabetes mellitus type 2, CABG done in January 2004, pacemaker, left toe amputated in 2011, left humerus fracture in July of this year, prior history of T1-L1 compression fractures, appendectomy, cataract surgery, colonoscopy in March 2016, and upper endoscopy during the same setting. CURRENT MEDICATIONS: 1. The patient is on aspirin 325 mg p.o. daily. 2. Crestor 20 mg daily. 3. Vitamin B12 1000 mcg p.o. daily. 4. Digoxin 0.25 mg p.o. daily. 5. Fenofibric acid 135 mg daily. 6. Folic acid 1 mg daily. 7. Lasix 20 mg to alternate with 40 mg Lasix. 8. Imdur 60 mg daily. 9. Lantus 28 units subcu at bedtime. 10. Lopressor 25 mg twice daily. 11. Omeprazole 20 mg daily. 12. Pulmicort inhaler p.r.n. ALLERGIES: TO ASPIRIN, BACTRIM, BETADINE, BYETTA, IODINE, LIPITOR, LYRICA, SOY, THEOPHYLLINE, AND ZOCOR. PERSONAL HISTORY: Does not abuse alcohol or drugs. She lives alone. Has not smoked in her life. No exposure to smoke. FAMILY HISTORY: Father of massive AL in his 50s. Mother lived up to her 80s. She had history of diverticulosis and coronary artery disease. CODE STATUS: Full. Power of deputy county attorney is her daughter, Ms. Oconnor. REVIEW OF SYSTEMS: CONSTITUTIONAL: Negative for weight loss or gain, ability to conduct usual activities. SKIN: Negative for rash, itching. EYES: Negative for double vision, pain. ENT/MOUTH: Negative for nose bleeding, neck stiffness, pain, tenderness. CARDIOVASCULAR: Negative for palpitations, dyspnea on exertion, orthopnea. RESPIRATORY: Negative for shortness of breath, wheezing, cough, hemoptysis, fever or night sweats. GASTROINTESTINAL: Negative for poor appetite, abdominal pain, heartburn, nausea , vomiting, constipation, or diarrhea. GENITOURINARY: Negative for urgency, frequency, dysuria, nocturia. MUSCULOSKELETAL: Negative for pain, swelling. NEUROLOGIC/PSYCHIATRIC: Negative for anxiety, depression. ALLERGY/IMMUNOLOGIC: Negative for skin rash, bleeding tendency. PHYSICAL EXAMINATION: GENERAL: The patient is an 84-year-old female, who is currently not in any acute distress. VITAL SIGNS: Blood pressure 110/66, pulse 84 per minute, respiratory rate 14 per minute, temperature 97.5 degrees Fahrenheit, and saturating 100% on room air. NECK: Supple. No elevated JVD. HEENT: Eyes; extraocular muscles intact. Pupils reacting to light. Oral cavity, mucous membranes are dry. No exudates or congestion, CARDIOVASCULAR: S1 and S2 heard. Murmur plus. Regular rhythm. RESPIRATORY: Air entry 1+ bilateral. No rales or rhonchi. ABDOMEN: Mildly distended, but is soft. No rigidity or guarding. Bowel sounds are heard. EXTREMITIES: The patient moves both her upper extremities. There is 1+ peripheral edema in lower extremities. No calf tenderness. VASCULAR SYSTEM: Peripheral pulses 1+ bilateral. No ischemic ulcerations or gangrene. CENTRAL NERVOUS SYSTEM: No gross focal motor deficits noted. The patient is alert, awake, and oriented well. PSYCHIATRIC: The patient's mood is euthymic. No hallucinations or delusions. DIAGNOSTIC DATA: Right humerus 2-view x-ray done shows mildly displaced spiral fracture of the right proximal humerus. Left humerus x-ray 2 views shows proximal humerus fracture with callus formation. Possibility of a subacute fracture arises. CT cervical spine shows mildly and displaced fracture of proximal right humerus diaphysis and questionable fracture of left proximal humerus. Degenerative changes in C-spine without evidence of fracture or traumatic subluxation. CT brain without contrast done showed no acute intracranial finding. There is cortical atrophy. Chest x-ray portable done shows cardiomegaly, chronic lung changes without any acute infiltrate. There is finding of right humerus shaft fracture. EKG done in the ER is currently misplaced. We are trying to obtain the same. If not, a repeat EKG will be done. LABORATORY DATA: White count of 5, H and H of 9 and 32, platelet count of 252, MCV of 74 with 79% neutrophils. PT/INR/PTT within normal limits. BUN 17 and creatinine 0.9. Serum bicarb 25 and serum glucose 164. AST/ALT within normal limits. Alkaline phosphatase is 139. Troponin I 0.06. BNP is 214. Albumin is 2.9. Digoxin levels are 0.9. CLINICAL IMPRESSION AND PLAN: The patient will be admitted to medical floor with history of recurrent falls, which the patient claims to be due to dizziness. She claims she uses a rolling walker or a cane at home, but she lives alone. She has underlying dementia and cannot recall the exact nature of her falls. Dr. Thomas has been consulted from ER and the plan is to take her to operating room tomorrow. She has cardiac history with prior coronary artery bypass grafting and bovine aortic valve as well with lower extremity edema and low albumin due to nonalcoholic steatohepatitis and cirrhosis. Last paracentesis was on the with removal of 6 L. We will obtain a repeat paracentesis today, so that she can lay flat for surgery tomorrow. I have also spoken to Dr. Lopez for Cardiology clearance. A current echo will be obtained for LV function. We will continue her home dose of Imdur, Lopressor, Crestor, Ranexa, Protonix, Zetia, TriCor, and digoxin as before. Her Lantus will be reduced to 20 units subcu at bedtime with Humalog coverage. We will also obtain ultrasound venous Doppler of lower extremities to rule out DVT. The patient has multiple medical issues and needs to have surgery in the morning. She wants to be full code. I have discussed her code status with her at bedside here. The patient does mention that if she remains in a persistent vegetative state to stop pursuing aggressive measures then. Her PT/INR is within normal limits, and her liver enzymes, AST, ALT are within normal limits, and her albumin is around 2.9 at present. Given multiple medical issues and guarded prognosis, she has moderate to high risk for surgery which she needs in view of bilateral humerus fractures which is limiting her mobility and increased morbidity and for pain control. We will obtain an echo for further quantification of cardiac risk. Job ID: [id number] MTDD
[2019-10-30 16:43] VITALS: BMI 22.1
[2019-10-30] MEDS ORDERED: Sodium Bicarbonate 2.5 MEQ/5 ML VIAL ONE (16:47)
[2019-10-30] MEDS ORDERED: Lidocaine 1% PF 5 ML VIAL ONE (16:47)
[2019-10-30 17:07] LABS: Iron 22 ug/dL (50-170); Iron Binding Capacity, Total 268 mcg/dL (265-497)
[2019-10-30 17:33] LABS: Ferritin 187.54 ng/mL (10-291)
[2019-10-30 17:56] LABS: Glucose POC Confirmation 47 mg/dl (83-110)
--- NOTE | 2019-10-30 18:05 | ULT ---
EXAM: Bilateral lower extremity venous Doppler US HISTORY: bilateral lower extremity edema and pain FINDINGS: Grayscale, color-flow, Doppler evaluation, spectral analysis of the bilateral lower extremities venou s structures is performed with 2-D imaging. The bilateral common femoral, superficial femoral, popliteal, posterior tibial, proximal greater saphenous and profunda femoral veins are imaged. There is normal luminal compressibility, flow, and augmentation in the visualized deep venous structu res of the bilateral lower extremities. IMPRESSION: No evidence of a deep vein thrombosis in either lower extremity.
--- NOTE | 2019-10-30 18:11 | ULT ---
ULTRASOUND-GUIDED PARACENTESIS THERAPEUTIC: DATE: 10/30/2019 HISTORY: 84-year-old female with symptomatic ascites, abdominal distention. Paracentesis requested prior to [facility] tomorrow. TECHNIQUE: Signed informed consent obtained. A four-quadrant survey of abdomen performed. Site selected for puncture: right lower quadrant Overlying skin prepared and draped in usual sterile fashion. 25-gauge needle used to apply buffered lidocaine superficially and deeply. 5 Belgian Yueh catheter with stylette advanced into the pocket of free intraperitoneal fluid. After drainage, the Yueh catheter was removed. Patient tolerated the procedure well. No complications. FINDINGS: Volume of ascites prior to procedure:Moderately large. Volume of ascites fluid in the drainage pocket after drainage:Small to moderate. Volume of ascites fluid drained:6400 mL Appearance of ascites fluid:nonhemorrhagic, straw-colored. IMPRESSION: Successful therapeutic paracentesis, with drainage of 6.4 L of ascites fluid.
--- NOTE | 2019-10-30 19:33 | CON ---
DATE OF CONSULTATION: 10/30/2019 REASON FOR CONSULTATION: Preoperative evaluation. PRIMARY OPEN PIT QUARRY SUPERVISOR: Olu Baron MD. HISTORY OF PRESENT ILLNESS: Ms. Thomas is a very pleasant 84-year-old black female, who comes to the hospital after a fall. She fractured her humerus. Actually, she had a fall a few months back where she had also fractured the other humerus. She is scheduled to have surgery tomorrow for her arms. I have been asked to evaluate her for preoperative evaluation. She does have a history of coronary artery disease and aortic valve replacement. Mrs. Thomas denies any chest pain, tightness, pressure. No shortness of breath. She does have cirrhosis and has massive ascites that has to be drained from time to time. On my evaluation, she denies any symptoms concerning for angina, no syncope. She had a fall, not syncope. Last evaluation of her heart in the office by Dr. Baron was a stress test back in January 2018. At that point, she had probably abnormal study with a small scar in the mid inferior wall, but no reversible ischemia. Her EF at that time was 65%. The most recent echocardiogram on file was also from January of 2018 at which time her EF was about 55 to 60% with mild MR, mild TR with normal right ventricular systolic pressures, diastolic dysfunction, bioprosthetic aortic valve with just mild aortic valve stenosis by measurements, which would be normal functioning valve. There was severe mitral annular calcification, but with minimal regurgitation. She has had her pacemaker interrogated as well recently and this showed no significant arrhythmias. PAST MEDICAL HISTORY: 1. History of severe aortic stenosis, status post aortic valve replacement with a bioprosthetic bovine aortic valve. 2. Nonalcoholic steatohepatitis with cirrhosis. 3. Type 2 diabetes. 4. Coronary artery bypass grafting in 2003 with bioprosthetic valve. 5. Pacemaker placement. 6. Left toe amputation. 7. Left humerus fracture in July of this year. 8. T1-L1 compression fractures. 9. Appendectomy. 10. Cataract surgery. 11. Colonoscopy in March 2016. 12. Acute thrombus of the left basilic vein, which has resolved. 13. Paroxysmal atrial fibrillation. 14. History of anemia. OUTPATIENT MEDICATIONS: 1. Aspirin 325 a day. 2. Crestor 10 mg a day. 3. Vitamin B12. 4. Digoxin 0.25 daily. 5. Fenofibric acid 125 mg a day. 6. Folic acid 1 mg a day. 7. Lasix 20 mg alternate with 40 mg every other day. 8. Imdur 60 mg a day. 9. Lantus 28 units subcu. 10. Lopressor 25 mg twice a day. 11. Omeprazole. 12. Pulmicort inhaler. 13. Ranexa 500 mg twice a day. SOCIAL HISTORY: No alcohol, tobacco, or drugs. Lives alone. FAMILY HISTORY: Father of ID in his 50s. REVIEW OF SYSTEMS: A 12-point review of systems was done and was all negative unless stated in the history of present illness. PHYSICAL EXAMINATION: VITAL SIGNS: Temperature 98.2, pulse 86, respiratory rate 16, saturating 100% on room air, blood pressure 132/81. GENERAL: Awake, alert, oriented x3. No distress. HEENT: Normocephalic, atraumatic. NECK: Supple. LUNGS: Clear. CARDIOVASCULAR: S1 and S2. No S3 or S4. No murmurs. There is a grade 2/6 systolic murmur at the right upper sternal border. ABDOMEN: Soft, positive bowel sounds. EXTREMITIES: No edema. SKIN: Warm and dry. LABORATORY DATA: Laboratory work was reviewed. CBC with a white count of 5, hemoglobin at 9.7, hematocrit 32, platelet count of 252. Coags were normal. Chemistries were unremarkable except for low glucose. Sodium was 131, potassium 4.2, normal BUN and creatinine. GFR was 56. Troponin is in the indeterminate range at 0.06. BNP was 214, albumin of 2.9. Digoxin level was normal at 0.99. ASSESSMENT: 1. Status post fall. 2. Humeral fracture. 3. Status post coronary artery bypass grafting. 4. Status post bioprosthetic aortic valve placement. 5. Paroxysmal atrial fibrillation. PLAN: Certainly she would be high risk for any procedure given her multiple comorbidities and advanced age. At this time, however, I do not see any prohibitive situations that would make her surgery to be prohibitive risk. I spoke with Ms. Thomas about her risk for surgery and she tells me that she wants to proceed with surgery given her surgical risks. I think this is reasonable. We will get an echocardiogram to assess valvular structures and LV function before proceeding. No other intervention would be needed before surgery. Thank you for letting us participate in the care of your patient. We will follow. Colton ID: [id number]
[2019-10-30] MEDS: Mometasone Furoate 30 PUFF 220 MCG INH SCH (20:10)
[2019-10-30] MEDS ORDERED: Insulin Glargine 40 UNITS in Pre-Filled Syringe 1 EACH SC SCH (21:00)
[2019-10-30] MEDS ORDERED: Non-Formulary Item 1 EACH (Insulin Glargine,Hum.Rec.Anlog [Lantus Solostar] 40 UNIT) SQ SCH (21:00)
[2019-10-30] MEDS ORDERED: Metoprolol Tartrate 25 MG TAB PO SCH (21:00)
[2019-10-30] MEDS: Rosuvastatin 20 MG TAB PO SCH (21:01)
[2019-10-30] MEDS: Ezetimibe 10 MG TAB PO SCH (21:02)
--- NOTE | 2019-10-30 21:18 | CON ---
DATE OF CONSULTATION: This is Shahid Live PA-C dictating a report for Omar Thomas MD. HISTORY OF PRESENT ILLNESS: We were asked by the ER to see patient. The patient was at home and states she has been falling quite a bit. She was here July 03 with a fractured left proximal humerus, but has been doing okay with this. She also struggles with ascites and has quite a full abdomen right now, and has been falling apparently due to this. She fell today, fracturing her right proximal humerus, remarkably looking at the x-rays from July 03 and new one today. She is able to lift her left upper extremity up, has good delivery clerk, strength. No numbness or tingling, and for the most part, has no pain with moving that left upper extremity. The right upper extremity is another issue, it is quite painful with movement, but has no numbness, tingling, or strength deficits. No other injuries in her fall. PAST MEDICAL HISTORY: Positive for cardiac issues, fatty liver with cirrhosis, type 2 diabetes, osteoporosis, ascites. PAST SURGICAL HISTORY: Bovine aortic valve prosthesis, broken shoulder. She had a ligament some time repaired in [address] Gonzalez, amputated toes. Pacemaker insertion, cardiac bypass, fractures T1, L1, appendectomy, cataract surgeries. CURRENT MEDICATIONS: 1. Sandy Allergy. 2. Aspirin. 3. . 4. Crestor. 5. Vitamin B12. 6. Digoxin. 7. Fenofibric acid. 8. Folic acid. 9. Lasix. 10. Humalog. 11. Isosorbide mononitrate. 12. Kenalog. 13. Lantus. 14. Lopressor. 15. Omeprazole. 16. Pulmicort. 17. Ranexa. 18. Spironolactone. 19. Tylenol with codeine p.r.n. 20. Ventolin HFA. 21. Xanax. 22. Zetia. 23. Xifaxan. ALLERGIES: ASPIRIN, BACTRIM, BETADINE, BYETTA, IODINE, LIPITOR, LYRICA, SOY, THEOPHYLLINE, UNCOATED ASPIRIN, ZOCOR. SOCIAL HISTORY: , lives alone. No alcohol, nicotine, or drug products whatsoever. FAMILY HISTORY: Positive for diverticulitis, [place]. REVIEW OF SYSTEMS: No chest pain. A little bit short of breath. No bowel or bladder issues. No neurological issues in the arms. She does have some neuropathy in the lower extremities. Complaint of right upper extremity pain. Rest of review of systems is negative. PHYSICAL EXAMINATION: GENERAL: Well-nourished, well-developed, pleasant female, resting on the gurney in room 2. Speech clear. Affect pleasant. Answers questions appropriately. Alert and oriented x3. HEENT: Face symmetric. Tongue midline. She does have some bruising to her forehead and an injury to the right forehead, but does not recall hitting head when she fell. She states she does bruise easily though. NECK: Supple. Trachea midline. UPPER EXTREMITIES: Upper extremities are equal size, shape, symmetry. Normal bulk and tone with the exception. She does have some edema to the right upper extremity. Decreased range of motion of the right upper extremity. Left upper extremity remarkably moves quite well. She has equal delivery clerk strength, sensations. Pulses are equal and symmetric. Respirations 20, but in no acute respiratory distress. PELVIS: No pain with rocking. LOWER EXTREMITY: Other than some bruising on the arms and legs, normal exam. ASSESSMENT: 1. Multiple health issues. 2. Fractured proximal humerus. PLAN: We will get the patient admitted to the hospital via Medicine, Dr. Fuchs. He is going to check with Dr. Lopez for her cardiac status, but our initial plan is we would like to take her to the operating room in the morning and do an intramedullary humeral nail. The patient is a patient of Dr. Yepez. Tried to get a hold of him to see if he would like to see the patient or get her fixed up. The patient is happy with Dr. Thomas, under taking the surgery in the morning, she would just like to be fixed. I went over the procedure with the patient. Her questions and concerns have been addressed, and she is amenable to go forth with surgery. Again, it will be a right humeral intramedullary nail. N.p.o. after midnight. Medically, she is being taken care of by Dr. Fuchs. Hopefully, she will have medical clearance by the morning. We will get her consented for surgery, but again I will speak with Dr. Yepez, just to let him know what is going on with this patient. The patient is very happy with the plan and amenable to go forth with surgery. Job ID: [id number]
[2019-10-30] MEDS: Acetaminophen 325 MG TAB PO PRN (23:58)
[2019-10-31] MEDS ORDERED: Dextrose 50% Abboject 50 ML SYRINGE ONE (05:43)
[2019-10-31] MEDS: Metoprolol Tartrate 25 MG TAB PO SCH ×2 (05:48→20:49)
[2019-10-31 06:06] LABS: #Eosinphils 0.1 thou/uL (0.0-0.7); #Lymphocytes 0.9 thou/uL (1.20-3.40); #Monocytes 0.5 thou/uL (0.11-0.59); #Neutrophils 5.1 thou/uL (1.40-6.50); %Basophils 0.5 % (0.0-1.0); %Monocytes 7.9 % (0.0-10.0); %Neutrophils 76.6 % (42.0-75.0); Hemoglobin 8.6 g/dL (12.0-16.0); Mean Corpuscular HGB CONC 31.2 g/dL (32.0-36.0); Mean Corpuscular Volume 73.5 fL (78.0-98.0); Mean Platelet Volume 7.5 fL (7.4-10.4); Platelet Count 305 thou/uL (130-400); RBC Distribution Width 16.3 % (11.5-14.5); Red Blood Cell (RBC) Count 3.76 mill/uL (4.20-5.40); White Blood Cell (WBC) Count 6.7 thou/uL (4.8-10.8)
[2019-10-31 06:07] LABS: ALT (SGPT) 9 U/L (8-55); AST (SGOT) 22 U/L (5-34); Albumin 2.4 g/dL (3.4-4.8); Alkaline Phosphatase 131 U/L (40-110); Anion Gap 10 mmol/L (10-20); BUN (Urea Nitrogen) 15 mg/dL (9.8-20.1); Bilirubin, Total 0.4 mg/dL (0.2-1.2); Calc. Creatinine Clearance 60 mL/min (70-130); Calcium 8.3 mg/dL (7.8-10.44); Carbon Dioxide 28 mmol/L (23-31); Chloride 96 mmol/L (98-107); Estimated GFR-MDRD 76; Globulin 3.3 g/dL (2.4-3.5); Potassium 4.4 mmol/L (3.5-5.1); Protein, Total 5.7 g/dL (6.0-8.3); Sodium 130 mmol/L (136-145)
[2019-10-31 06:11] LABS: Glucose 46 mg/dL (83-110)
[2019-10-31] MEDS: Fenofibrate Nanocrystallized 145 MG TAB PO SCH (09:13)
[2019-10-31] MEDS: Aspirin 325 MG TAB PO SCH (09:14)
[2019-10-31] MEDS: Vit A,C & E/Lutein/Minerals Tablet PO SCH ×2 (09:14→20:48)
[2019-10-31] MEDS: Enoxaparin Sodium 40 MG/0.4 ML SYRINGE SC SCH (09:19)
[2019-10-31] MEDS: Acetaminophen/Codeine 30-300mg Tablet PO PRN ×2 (10:21→21:10)
--- NOTE | 2019-10-31 12:13 | PDOC.HOSPP ---
- Subjective Encounter Date: 10/31/19 Encounter Time: 11:45 Subjective: Patient seen and examined for gen weakness/falls. No new complaints. No overnight events - Objective Vital Signs & Weight: Vital Signs (12 hours) Temp Pulse Resp BP Pulse Ox 10/31/19 08:00 99 10/31/19 07:42 97.5 F L 77 18 131/80 99 10/31/19 05:00 98.0 F 78 18 119/70 99 Weight Weight 141 lb 11.2 oz I&O: 10/30/19 10/31/19 11/01/19 06:59 06:59 06:59 Intake Total 1000 Balance 1000 Result Diagrams: 10/31/19 05:23 10/31/19 05:23 Additional Labs: Accuchecks 10/31/19 10/31/19 10/31/19 11:37 06:13 05:33 POC Glucose 207 H 208 H 54 L* 10/30/19 10/30/19 10/30/19 22:41 21:00 18:07 POC Glucose 94 68 L 92 10/30/19 16:25 POC Glucose 57 L* Radiology Reviewed by me: Yes (Humeral fracture) Hospitalist ROS - Review of Systems Respiratory: denies: cough, dry, shortness of breath, hemoptysis, SOB with excertion, pleuritic pain, sputum, wheezing, other Cardiovascular: denies: chest pain, palpitations, orthopnea, paroxysmal noc. dyspnea, edema, light headedness, other - Medication Medications: Active Medications Generic Name Dose Route Start Last Admin Trade Name Freq PRN Reason Stop Dose Admin Acetaminophen 650 mg 10/30/19 13:20 10/30/19 23:58 Tylenol PO 650 mg Q4H PRN Administration Headache/Fever/Mild Pain (1-3) Acetaminophen/Codeine Phosphate 1 tab 10/30/19 13:20 10/31/19 10:21 Tylenol #3 PO 1 tab Q6HR PRN Administration mild Pain Aspirin 325 mg 10/31/19 09:00 10/31/19 09:14 Aspirin PO 325 mg DAILY PATRICIA Administration Ezetimibe 10 mg 10/30/19 21:00 10/30/19 21:02 Zetia PO 10 mg HS PATRICIA Administration Enoxaparin Sodium 40 mg 10/31/19 09:00 10/31/19 09:19 Lovenox SC 40 mg 0900 PATRICIA Administration Fenofibrate 145 mg 10/31/19 09:00 10/31/19 09:13 Tricor PO 145 mg DAILY PATRICIA Administration Sodium Chloride 1,000 mls @ 50 mls/hr 10/30/19 13:20 10/30/19 18:23 Normal Saline 0.9% IV 1,000 mls .Q20H PATRICIA Administration Isosorbide Mononitrate 60 mg 10/31/19 09:00 10/31/19 09:13 Imdur PO 60 mg DAILY PATRICIA Administration Metoprolol Tartrate 12.5 mg 10/31/19 09:00 10/31/19 05:48 Lopressor PO 12.5 mg BID PATRICIA Administration Mometasone Furoate 1 puff 10/30/19 18:30 10/30/19 20:10 Asmanex INH 1 puff 1830 PATRICIA Administration Multivitamins/Minerals 1 tab 10/31/19 09:00 10/31/19 09:14 Ocuvite With Lutein PO 1 tab BID PATRICIA Administration Pantoprazole Sodium 40 mg 10/31/19 09:00 10/31/19 09:14 Protonix PO 40 mg DAILY PATRICIA Administration Ranolazine 500 mg 10/30/19 21:00 10/31/19 09:13 Ranexa PO 500 mg BID PATRICIA Administration Rosuvastatin Calcium 20 mg 10/30/19 21:00 10/30/19 21:01 Crestor PO 20 mg HS PATRICIA Administration - Exam General Appearance: NAD Heart: RRR, no rubs Respiratory: no wheezes, no rales, no ronchi, normal chest expansion Gastrointestinal: soft, non-tender, non-distended, normal bowel sounds Extremities: no cyanosis, no clubbing Hosp A/P - Plan DVT proph w/lovenox Gen weakness Rt Humeral fracture Cirrhosis due to KEVIN Ascites s/p paracentesis CAD s/p bioprosthetic AVR DM2 with hypoglycemia Par Afib Chronic Anemia - prob due to nutritional def PLAN: Lantus on hold DC IVF Cont ASA Cont sliding scale Lantus on hold due to hypoglycemia Cont other meds as above AM labs
--- NOTE | 2019-10-31 16:30 | PDOC.CPN ---
- Subjective Date: 10/31/19 Time: 16:28 Interval history: No new issues. No complaints. - Review of Systems General: denies: fever/chills, weight/appetite/sleep changes, night sweats, fatigue Respiratory: denies: cough, congestion, shortness of breath, exercise intolerance Cardiovascular: denies: chest pain, palpitation, edema, paroxysmal nocturnal dyspnea, orthopnea Gastrointestinal: denies: nausea, vomiting, diarrhea, constipation, abd pain, GI bleeding Musculoskeletal: denies: pain, tenderness, stiffness, swelling, arthritis/ arthralgias Neurological: denies: numbness, syncope, seizure, weakness - Objective Allergies/Adverse Reactions: Allergies Allergy/AdvReac Type Severity Reaction Status Date / Time aspirin Allergy Verified 10/22/19 10:40 atorvastatin calcium Allergy Verified 10/22/19 10:40 [From Lipitor] exenatide [From Byetta] Allergy Verified 10/22/19 10:40 iodine Allergy Verified 10/22/19 10:40 phenol Allergy Verified 10/30/19 17:03 pregabalin [From Lyrica] Allergy Verified 10/22/19 10:40 shellfish derived Allergy Verified 10/30/19 17:03 simvastatin [From Zocor] Allergy Verified 10/22/19 10:40 soy Allergy Verified 10/22/19 10:40 sulfamethoxazole Allergy Verified 10/22/19 10:40 [From Bactrim] theophylline Allergy Verified 10/22/19 10:40 trimethoprim [From Bactrim] Allergy Verified 10/22/19 10:40 walnut Allergy Verified 10/30/19 17:03 Visit Medications: Current Medications Acetaminophen (Tylenol) 650 mg PO Q4H PRN PRN Reason: Headache/Fever/Mild Pain (1-3) Last Admin: 10/30/19 23:58 Dose: 650 mg Acetaminophen/Codeine Phosphate (Tylenol #3) 1 tab PO Q6HR PRN PRN Reason: mild Pain Last Admin: 10/31/19 10:21 Dose: 1 tab Hydrocodone Bitart/Acetaminophen ([place] 5/325) 1 tab PO Q4H PRN PRN Reason: Moderate Pain (4-6) Albuterol Sulfate (Ventolin) 2.5 mg NEB Q4H PRN PRN Reason: Dyspnea/Wheezing/SOB Aspirin (Aspirin) 325 mg PO DAILY PATRICIA Last Admin: 10/31/19 09:14 Dose: 325 mg Bisacodyl (Dulcolax) 10 mg MO DAILYPRN PRN PRN Reason: Constipation Calcium Carbonate (Tums) 1,000 mg PO Q4H PRN PRN Reason: Heartburn or Indigestion Calcium/Vitamin D (Caltrate 600 + Vit D) 1 tab PO BID-[facility] Dextrose/Water (Dextrose 50%) 25 gm SLOW IVP PRN PRN PRN Reason: Hypoglycemia Digoxin (Lanoxin) 0.25 mg PO HS [facility] Ezetimibe (Zetia) 10 mg PO HS [facility] Last Admin: 10/30/19 21:02 Dose: 10 mg Enoxaparin Sodium (Lovenox) 40 mg SC 0900 [facility] Last Admin: 10/31/19 09:19 Dose: 40 mg Fenofibrate (Tricor) 145 mg PO DAILY [facility] Last Admin: 10/31/19 09:13 Dose: 145 mg Glucagon (Glucagon) 1 mg IM PRN PRN PRN Reason: Hypoglycemia Guaifenesin/Dextromethorphan (Robitussin Dm) 15 ml PO Q4H PRN PRN Reason: Cough Dextrose/Water (D5w) 1,000 mls @ 0 mls/hr IV .Q0M PRN PRN Reason: Hypoglycemia Cefazolin Sodium/Dextrose 2 gm (/ Device) 50 mls @ 100 mls/hr IVPB ONCALL-OR [facility] Insulin Human Lispro (Humalog) 0 units SC .MODERATE SLIDING SC PRN PRN Reason: Moderate Correctional Scale Insulin Human Lispro (Humalog) 0 units SC .BEDTIME SLIDING SC PRN PRN Reason: Bedtime Correctional Scale Isosorbide Mononitrate (Imdur) 60 mg PO DAILY [facility] Last Admin: 10/31/19 09:13 Dose: 60 mg Metoprolol Tartrate (Lopressor) 12.5 mg PO BID [facility] Last Admin: 10/31/19 05:48 Dose: 12.5 mg Mometasone Furoate (Asmanex) 1 puff INH 1830 [facility] Last Admin: 10/30/19 20:10 Dose: 1 puff Morphine Sulfate (Morphine) 2 mg SLOW IVP Q4H PRN PRN Reason: Severe Pain (7-10) Multivitamins/Minerals (Ocuvite With Lutein) 1 tab PO BID [facility] Last Admin: 10/31/19 09:14 Dose: 1 tab Ondansetron HCl (Zofran) 4 mg IVP Q6H PRN PRN Reason: Nausea/Vomiting Pantoprazole Sodium (Protonix) 40 mg PO DAILY [facility] Last Admin: 10/31/19 09:14 Dose: 40 mg Ranolazine (Ranexa) 500 mg PO BID [facility] Last Admin: 10/31/19 09:13 Dose: 500 mg Rosuvastatin Calcium (Crestor) 20 mg PO HS [facility] Last Admin: 10/30/19 21:01 Dose: 20 mg Senna/Docusate Sodium (Senokot S) 2 tab PO BID PRN PRN Reason: Constipation Vital Signs & Weight: Vital Signs Temp Pulse Resp BP Pulse Ox 10/31/19 08:00 99 10/31/19 07:42 97.5 F L 77 18 131/80 99 10/31/19 05:00 98.0 F 78 18 119/70 99 Admit Weight 141 lb 11.2 oz Weight 141 lb 11.2 oz - Physical Exam General: alert & oriented x3 HEENT: mucus membranes moist Neck: supple neck Cardiac: regular rate and rhythm, systolic murmur Lungs: clear to auscultation Neuro: grossly intact Abdomen: active bowel sounds Extremities: no edema Skin: clear Musculoskeletal: no pain - Labs Result Diagrams: 10/31/19 05:23 10/31/19 05:23 Troponin/CKMB CK-MB (CK-2) 3.4 ng/mL (0-6.6) 10/30/19 09:37 Troponin I 0.063 ng/mL (< 0.028) H 10/30/19 09:37 - Assessment/Plan Assessment/Plan: 1. Humeral fracture 2. S/P AVR 3. S/P CABG PLAN: - CV stable. - Normal EF and valve function on echo. - Conservative treatment for her arm per ortho. - Will sign off, please call with any questions.
[2019-10-31] MEDS: Calcium Carbonate 600 MG + Vit D TAB PO SCH (18:02)
[2019-10-31] MEDS: Mometasone Furoate 30 PUFF 220 MCG INH SCH (18:02)
[2019-10-31] MEDS: HumaLOG 300 UNITS/3 ML VIAL SC PRN ×2 (18:09→20:51)
[2019-10-31] MEDS: Rosuvastatin 20 MG TAB PO SCH (20:47)
[2019-10-31] MEDS: Ezetimibe 10 MG TAB PO SCH (20:48)
[2019-10-31] MEDS: Digoxin 0.25 MG TAB PO SCH (20:48)
[2019-10-31] MEDS ORDERED: Spironolactone 100 MG TAB PO SCH (21:00)
[2019-11-01 06:04] LABS: #Eosinphils 0.1 thou/uL (0.0-0.7); #Lymphocytes 0.6 thou/uL (1.20-3.40); #Monocytes 0.5 thou/uL (0.11-0.59); #Neutrophils 3.5 thou/uL (1.40-6.50); %Basophils 0.6 % (0.0-1.0); %Eosinophils 1.7 % (0.0-10.0); %Lymphocytes 11.9 % (21.0-51.0); %Monocytes 10.1 % (0.0-10.0); %Neutrophils 75.8 % (42.0-75.0); Hemoglobin 8.3 g/dL (12.0-16.0); Mean Corpuscular HGB CONC 30.9 g/dL (32.0-36.0); Mean Corpuscular Hemoglobin 23.2 pg (27.0-31.0); Mean Corpuscular Volume 75.2 fL (78.0-98.0); Mean Platelet Volume 7.6 fL (7.4-10.4); Platelet Count 241 thou/uL (130-400); RBC Distribution Width 16.5 % (11.5-14.5); Red Blood Cell (RBC) Count 3.58 mill/uL (4.20-5.40); White Blood Cell (WBC) Count 4.7 thou/uL (4.8-10.8)
[2019-11-01 06:23] LABS: Albumin 2.4 g/dL (3.4-4.8); Anion Gap 8 mmol/L (10-20); BUN (Urea Nitrogen) 19 mg/dL (9.8-20.1); BUN/Creatinine Ratio 21.59; Calc. Creatinine Clearance 50 mL/min (70-130); Calcium 8.3 mg/dL (7.8-10.44); Carbon Dioxide 28 mmol/L (23-31); Chloride 97 mmol/L (98-107); Estimated GFR-MDRD 62; Glucose 126 mg/dL (83-110); Phosphorus 3.2 mg/dL (2.3-4.7); Potassium 4.4 mmol/L (3.5-5.1); Sodium 129 mmol/L (136-145)
[2019-11-01] MEDS: Acetaminophen/Codeine 30-300mg Tablet PO PRN ×2 (08:51→20:36)
[2019-11-01] MEDS: Vit A,C & E/Lutein/Minerals Tablet PO SCH ×2 (08:52→20:34)
[2019-11-01] MEDS: Calcium Carbonate 600 MG + Vit D TAB PO SCH ×2 (08:52→17:03)
[2019-11-01] MEDS: Metoprolol Tartrate 25 MG TAB PO SCH ×2 (08:52→20:34)
[2019-11-01] MEDS: Fenofibrate Nanocrystallized 145 MG TAB PO SCH (08:52)
[2019-11-01] MEDS: Aspirin 325 MG TAB PO SCH (08:52)
[2019-11-01] MEDS: Enoxaparin Sodium 40 MG/0.4 ML SYRINGE SC SCH (08:53)
--- NOTE | 2019-11-01 09:30 | PDOC.HOSPP ---
- Subjective Encounter Date: 11/01/19 Encounter Time: 09:00 Subjective: Patient seen and examined for gen weakness/recurrent falls. RUE pain - on and off. No other complaints. No overnight events - Objective Vital Signs & Weight: Vital Signs (12 hours) Temp Pulse Resp BP BP BP BP 11/01/19 08:14 97.3 F L 93 18 110/61 11/01/19 05:15 97.2 F L 93 18 104/65 100/64 105/62 11/01/19 00:00 97.5 F L 97 18 96/61 Pulse Ox 11/01/19 08:14 100 11/01/19 05:15 100 11/01/19 00:00 100 Weight Admit Weight 141 lb 11.2 oz Weight 141 lb 11.2 oz I&O: 10/31/19 11/01/19 11/02/19 06:59 06:59 06:59 Intake Total 1250 Balance 1250 Result Diagrams: 11/01/19 05:30 11/01/19 05:30 Additional Labs: Accuchecks 11/01/19 10/31/19 10/31/19 06:11 20:40 16:43 POC Glucose 135 H 228 H 214 H 10/31/19 11:37 POC Glucose 207 H Hospitalist ROS - Review of Systems Respiratory: denies: cough, dry, shortness of breath, hemoptysis, SOB with excertion, pleuritic pain, sputum, wheezing, other Cardiovascular: denies: chest pain, palpitations, orthopnea, paroxysmal noc. dyspnea, edema, light headedness, other - Medication Medications: Active Medications Generic Name Dose Route Start Last Admin Trade Name Ismaelq PRN Reason Stop Dose Admin Acetaminophen 650 mg 10/30/19 13:20 10/30/19 23:58 Tylenol PO 650 mg Q4H PRN Administration Headache/Fever/Mild Pain (1-3) Acetaminophen/Codeine Phosphate 1 tab 10/30/19 13:20 11/01/19 08:51 Tylenol #3 PO 1 tab Q6HR PRN Administration mild Pain Aspirin 325 mg 10/31/19 09:00 11/01/19 08:52 Aspirin PO 325 mg DAILY PATRICIA Administration Calcium/Vitamin D 1 tab 10/31/19 17:00 11/01/19 08:52 Caltrate 600 + Vit D PO 1 tab BID-WM PATRICIA Administration Digoxin 0.25 mg 10/31/19 21:00 10/31/19 20:48 Lanoxin PO 0.25 mg HS PATRICIA Administration Ezetimibe 10 mg 10/30/19 21:00 10/31/19 20:48 Zetia PO 10 mg HS PATRICIA Administration Enoxaparin Sodium 40 mg 10/31/19 09:00 11/01/19 08:53 Lovenox SC 40 mg 0900 PATRICIA Administration Fenofibrate 145 mg 10/31/19 09:00 11/01/19 08:52 Tricor PO 145 mg DAILY PATRICIA Administration Insulin Human Lispro 0 units 10/30/19 13:20 10/31/19 18:09 Humalog SC 4 unit .MODERATE SLIDING SC PRN Administration Moderate Correctional Scale Insulin Human Lispro 0 units 10/30/19 13:20 10/31/19 20:51 Humalog SC 2 unit .BEDTIME SLIDING SC PRN Administration Bedtime Correctional Scale Isosorbide Mononitrate 60 mg 10/31/19 09:00 11/01/19 08:52 Imdur PO 60 mg DAILY PATRICIA Administration Metoprolol Tartrate 12.5 mg 10/31/19 09:00 11/01/19 08:52 Lopressor PO 12.5 mg BID PATRICIA Administration Mometasone Furoate 1 puff 10/30/19 18:30 10/31/19 18:02 Asmanex INH 1 puff 1830 PATRICIA Administration Multivitamins/Minerals 1 tab 10/31/19 09:00 11/01/19 08:52 Ocuvite With Lutein PO 1 tab BID PATRICIA Administration Pantoprazole Sodium 40 mg 10/31/19 09:00 11/01/19 08:52 Protonix PO 40 mg DAILY PATRICIA Administration Ranolazine 500 mg 10/30/19 21:00 11/01/19 08:52 Ranexa PO 500 mg BID PATRICIA Administration Rosuvastatin Calcium 20 mg 10/30/19 21:00 10/31/19 20:47 Crestor PO 20 mg HS PATRICIA Administration - Exam General Appearance: NAD Neck: supple, no JVD Heart: RRR, no gallops Respiratory: no wheezes, no ronchi Gastrointestinal: soft, non-tender, normal bowel sounds Extremities: no cyanosis Neurological: no new deficit Hosp A/P - Plan DVT proph w/SCDs Gen weakness Rt Humeral fracture Cirrhosis due to KEVIN Ascites s/p paracentesis Chronic hyponatremia CAD s/p bioprosthetic AVR DM2 with hypoglycemia - Lantus on hold Par Afib Chronic Anemia - prob due to nutritional def PLAN: Cont PT/OT SNF vs Rehab eval Cont ASA/ sliding scale and other meds as above Start low dose Lantus BMP in AM
[2019-11-01] MEDS ORDERED: Insulin Glargine 10 UNITS in Pre-Filled Syringe 1 EACH SC SCH (11:45)
[2019-11-01] MEDS: HumaLOG 300 UNITS/3 ML VIAL SC PRN ×2 (17:03→20:38)
[2019-11-01] MEDS: Mometasone Furoate 30 PUFF 220 MCG INH SCH (18:20)
[2019-11-01] MEDS: Digoxin 0.25 MG TAB PO SCH (20:33)
[2019-11-01] MEDS: Ezetimibe 10 MG TAB PO SCH (20:33)
[2019-11-01] MEDS: Rosuvastatin 20 MG TAB PO SCH (20:34)
[2019-11-02] MEDS: HumaLOG 300 UNITS/3 ML VIAL SC PRN ×2 (06:29→20:45)
[2019-11-02 06:31] LABS: Anion Gap 10 mmol/L (10-20); BUN (Urea Nitrogen) 21 mg/dL (9.8-20.1); Calc. Creatinine Clearance 43 mL/min (70-130); Calcium 8.4 mg/dL (7.8-10.44); Carbon Dioxide 29 mmol/L (23-31); Chloride 97 mmol/L (98-107); Estimated GFR-MDRD 51; Glucose 163 mg/dL (83-110); Potassium 5.9 mmol/L (3.5-5.1); Sodium 130 mmol/L (136-145)
[2019-11-02] MEDS: Fenofibrate Nanocrystallized 145 MG TAB PO SCH (09:18)
[2019-11-02] MEDS: Vit A,C & E/Lutein/Minerals Tablet PO SCH ×2 (09:18→20:47)
[2019-11-02] MEDS: Calcium Carbonate 600 MG + Vit D TAB PO SCH ×2 (09:19→16:54)
[2019-11-02] MEDS: Metoprolol Tartrate 25 MG TAB PO SCH ×2 (09:38→23:49)
[2019-11-02] MEDS: Insulin Glargine 10 UNITS in Pre-Filled Syringe 1 EACH SC SCH (09:38)
[2019-11-02] MEDS: Aspirin 325 MG TAB PO SCH (09:38)
[2019-11-02] MEDS: Enoxaparin Sodium 40 MG/0.4 ML SYRINGE SC SCH (09:38)
--- NOTE | 2019-11-02 12:38 | PDOC.HOSPP ---
- Subjective Encounter Date: 11/02/19 Encounter Time: 07:45 Subjective: no c/o pain or sob this am she is getting worried about getting 2 doses of the same meds - Objective Vital Signs & Weight: Vital Signs (12 hours) Temp Pulse Resp BP BP Pulse Ox 11/02/19 11:00 97.7 F 88 19 111/73 100 11/02/19 07:49 97.7 F 78 20 94/57 L 100 Weight Admit Weight 141 lb 11.2 oz Weight 141 lb 11.2 oz I&O: 11/01/19 11/02/19 11/03/19 06:59 06:59 06:59 Intake Total 1250 Balance 1250 Result Diagrams: 11/01/19 05:30 11/02/19 05:34 Additional Labs: Accuchecks 11/02/19 11/02/19 11/01/19 11:23 05:49 20:28 POC Glucose 168 H 186 H 294 H 11/01/19 16:19 POC Glucose 376 H Hospitalist ROS - Medication Medications: Active Medications Generic Name Dose Route Start Last Admin Trade Name Freq PRN Reason Stop Dose Admin Acetaminophen 650 mg 10/30/19 13:20 10/30/19 23:58 Tylenol PO 650 mg Q4H PRN Administration Headache/Fever/Mild Pain (1-3) Acetaminophen/Codeine Phosphate 1 tab 10/30/19 13:20 11/01/19 20:36 Tylenol #3 PO 1 tab Q6HR PRN Administration mild Pain Aspirin 325 mg 10/31/19 09:00 11/02/19 09:38 Aspirin PO Not Given DAILY [facility] Calcium/Vitamin D 1 tab 10/31/19 17:00 11/02/19 09:19 Caltrate 600 + Vit D PO Not Given BID-WM PATRICIA Digoxin 0.25 mg 10/31/19 21:00 11/01/19 20:33 Lanoxin PO 0.25 mg HS PATRICIA Administration Ezetimibe 10 mg 10/30/19 21:00 11/01/19 20:33 Zetia PO 10 mg HS PATRICIA Administration Enoxaparin Sodium 40 mg 10/31/19 09:00 11/02/19 09:38 Lovenox SC Not Given 0900 PATRICIA Fenofibrate 145 mg 10/31/19 09:00 11/02/19 09:18 Tricor PO Not Given DAILY PATRICIA Insulin Glargine 10 units/ 0.1 mls @ 0 mls/hr 11/02/19 09:00 11/02/19 09:38 Miscellaneous Medication SC Not Given QAM [facility] Insulin Human Lispro 0 units 10/30/19 13:20 11/02/19 06:29 Humalog SC 2 unit .MODERATE SLIDING SC PRN Administration Moderate Correctional Scale Insulin Human Lispro 0 units 10/30/19 13:20 11/01/19 20:38 Humalog SC 3 unit .BEDTIME SLIDING SC PRN Administration Bedtime Correctional Scale Isosorbide Mononitrate 60 mg 10/31/19 09:00 11/02/19 09:38 Imdur PO Not Given DAILY [facility] Metoprolol Tartrate 12.5 mg 10/31/19 09:00 11/02/19 09:38 Lopressor PO Not Given BID [facility] Mometasone Furoate 1 puff 10/30/19 18:30 11/01/19 18:20 Asmanex INH 1 puff 1830 PATRICIA Administration Multivitamins/Minerals 1 tab 10/31/19 09:00 11/02/19 09:18 Ocuvite With Lutein PO Not Given BID [facility] Pantoprazole Sodium 40 mg 10/31/19 09:00 11/02/19 09:19 Protonix PO Not Given DAILY [facility] Ranolazine 500 mg 10/30/19 21:00 11/02/19 09:19 Ranexa PO Not Given BID [facility] Rosuvastatin Calcium 20 mg 10/30/19 21:00 11/01/19 20:34 Crestor PO 20 mg HS PATRICIA Administration - Exam General Appearance: awake alert Eye: PERRL, anicteric sclera ENT: no oropharyngeal lesions, dry oral mucosa Neck: supple, no JVD Heart: RRR, no murmur Respiratory: no wheezes, no rales Gastrointestinal: soft, non-tender, non-distended, normal bowel sounds Extremities: no cyanosis, no edema Neurological: cranial nerve grossly intact, no focal deficits Hosp A/P (1) Humerus fracture Code(s): S42.309A - UNSP FRACTURE OF SHAFT OF HUMERUS, UNSP ARM, INIT Status: Acute Qualifiers: Encounter type: subsequent encounter Fracture type: closed Plan: b/l (2) Frequent falls Code(s): R29.6 - REPEATED FALLS Status: Acute (3) Dementia Code(s): F03.90 - UNSPECIFIED DEMENTIA WITHOUT BEHAVIORAL DISTURBANCE Status: Suspected Qualifiers: Dementia type: Alzheimer's disease Dementia behavioral disturbance: without behavioral disturbance (4) DM type 2 (diabetes mellitus, type 2) Status: Chronic Qualifiers: Diabetes mellitus intermediate designer insulin use: with intermediate designer use Diabetes mellitus complication status: with hyperglycemia Qualified Code(s): E11.65 - Type 2 diabetes mellitus with hyperglycemia; Z79.4 - intermediate (current) use of insulin (5) Cirrhosis of liver with ascites Code(s): K74.60 - UNSPECIFIED CIRRHOSIS OF LIVER; R18.8 - OTHER ASCITES Status : Chronic Qualifiers: Hepatic cirrhosis type: unspecified hepatic cirrhosis Qualified Code(s): K74.60 - Unspecified cirrhosis of liver; R18.8 - Other ascites (6) CAD (coronary artery disease) Code(s): I25.10 - ATHSCL HEART DISEASE OF [place] CORONARY ARTERY W/O ANG PCTRS Status: Chronic Qualifiers: Coronary Disease-Associated Artery/Lesion type: bypass graft [place] vs. transplanted heart: [place] heart Associated angina: without angina Qualified Code(s): I25.810 - Atherosclerosis of coronary artery bypass graft(s) without angina pectoris - Plan for med mgmt of b/l humerus fractures had paracentesis on admission for cirrhosis sec to KEVIN needs placement, may dc if its ready dm is labile, encourage po intake continue asp, digoxin, zetia, tricor, lantus, imdur, lopressor, crestor and ranexa hemostable echo showed ef of 60%
[2019-11-02] MEDS: Acetaminophen/Codeine 30-300mg Tablet PO PRN ×2 (16:54→22:45)
[2019-11-02] MEDS ORDERED: Cosyntropin 250 MCG VIAL SLOW IVP SCH (17:45)
[2019-11-02] MEDS: Mometasone Furoate 30 PUFF 220 MCG INH SCH (18:29)
[2019-11-02] MEDS: Digoxin 0.25 MG TAB PO SCH (20:46)
[2019-11-02] MEDS: HYDROcodone/Acetaminophen 5/325 mg Tablet PO PRN (20:46)
[2019-11-02] MEDS: Rosuvastatin 20 MG TAB PO SCH (20:47)
[2019-11-02] MEDS: Ezetimibe 10 MG TAB PO SCH (20:48)
[2019-11-03] MEDS: Acetaminophen/Codeine 30-300mg Tablet PO PRN (05:31)
--- NOTE | 2019-11-03 07:21 | CON ---
DATE OF CONSULTATION: 11/02/2019 REASON FOR CONSULT: Cirrhosis. HISTORY OF PRESENT ILLNESS: Ms. Thomas is an 84-year-old female, with cirrhosis secondary to fatty liver. She has been followed by Dr. Mason for some time. Recently in the past several months, she has began to develop ascites. Because of her low blood pressure, they have not been able to use diuretics and more recently she has been started on paracentesis. On 10/29, she fell and broke her right proximal humerus. On July 03 of this year, she broke her left humerus when she fell. She states she has been seeing multiple doctors and they cannot find out why she is falling. Her daughter called our office, stated she is getting more confused. Dr. Mason had asked me to take a look at her because I was on-call. I talked to Dr. Fuchs who agreed with her cirrhosis and confusion it would be okay for us to come by for consultation. In talking with her, she states she is not confused. She is angry about the way they are managing her glucose. She knows what day it is. She states that she has been told she is going home tomorrow and that is also what Dr. Fuchs told me. She does not relate falling to paracentesis. She apparently also has some cardiac issues for which she sees Dr. Baron on a regular basis. She was seen by his partner, Dr. Lopez here. Presently, she states it is mainly when she bends forward she will get dizzy and fall. Dr. Fuchs states she has had a little bit of a problem keeping her pressure up, but today it has been quite good. PAST MEDICAL HISTORY: 1. Severe aortic stenosis, previous aortic valve replacement bioprosthetic porcine. 2. She apparently had recent interrogation of her pacemaker, which has showed no significant arrhythmias. 3. Cirrhosis, nonalcoholic steatohepatitis. 4. Type 2 diabetes. 5. Coronary artery bypass grafting in 2004 with a bioprosthetic valve. 6. Left toe amputation. 7. Left humerus fracture in July of this year, right humerus fracture in this admission, T1-L1 compression fractures, appendectomy, cataract surgery, colonoscopy in 2016, EGD in 2018. Recent screening for hepatoma, negative. Acute thrombus left basilic vein, resolved. Paroxysmal atrial fibrillation. History of anemia. OUTPATIENT MEDICATIONS: 1. Aspirin 325 a day. 2. Crestor 20 mg a day. 3. B12 . 4. Digoxin 0.25 mg daily. 5. Fenofibrate mg daily. 6. Folic acid 1 mg daily. 7. Lasix 20 mg alternating with 40 mg every other day. 8. Imdur 60 mg daily. 9. Lantus 28 subcu daily. 10. Lopressor. 11. Omeprazole. 12. Pulmicort. 13. Ranexa. SOCIAL HISTORY: Negative for alcohol, drugs, or tobacco. She lives alone, but has a daughter who checks on her as well as a friend, "Germán." FAMILY HISTORY: Father of [place] in his 50s. REVIEW OF SYSTEMS: Negative for dysphagia, odynophagia, or melena. She denies confusion issues. She denies any palpitations or chest pain. She denies any TIA-like symptoms. PHYSICAL EXAMINATION: VITAL SIGNS: She has been afebrile since admission, T max 97.7, T current 97.5; pulse is 100 at 1600 hours, typically runs 60 to 80; blood pressure today sitting 110/73, standing 115/74, supine 137/81. Last few days, her systolics have been between 90 and 100. GENERAL: She is thin. She is somewhat pale. She has a brace on her right arm. She has some ecchymoses on her arms bilaterally. She is nonicteric. She is alert and oriented to person, place, and time. She has no asterixis. LUNGS: Clear. HEART: Regular rate and rhythm, without clicks or murmurs. ABDOMEN: Soft. There is shifting dullness and fluid wave. There is no rebound or guarding. There is 1 to 2+ edema in the legs. LABORATORIES: Hemoglobin is 8.3, white count 4.7, and platelet count 241. INR is 1.1 on 10/29. Sodium is 130, chloride 97, potassium 5.9, BUN and creatinine 21 and 1.03. Albumin is 2.4 on 10/31. Alkaline phosphatase is 131 on 10/30. AST was 22 and ALT was 9. Bilirubin 0.4. BNP 214. B12 normal. Folate normal. Glucose in the last couple of days has been running 135 to 298. Patient is reluctant to let them give her glucose because they state it will drop her sugars too much. She did have one low glucose at 47 on 10/29. Tap 10/21 showed 1373 white blood cells, 556 red blood cells. Cultures were negative. She was tapped again on 10/29, but this was not sent off for fluid, it was here at the hospital. Microbiology, tap for SBP on 10/21 negative culture. Echocardiogram this admission on 10/30 showed EF 60% to 65%. Grade 1/3 diastolic dysfunction. Normal aortic valve function. ASSESSMENT: 1. Cirrhosis secondary to nonalcoholic steatohepatitis. 2. Coronary artery disease with diastolic dysfunction. Pacemaker placement. Previous AVR replacement. Normal ejection fraction. It is unclear why she continues to have falls. She does have a pet at home. She may have some mild encephalopathy. She may have fluid shifts with her paracentesis or it may be related to her cardiac medications, although she has had an interrogation of her pacemaker, seems fine. RECOMMENDATIONS: 1. Retap tomorrow before discharge to check for SBP and treat if white blood cell count is greater than 250 PMNs or absolute 500. 2. Check ammonia level. 3. We will talk with the patient's primary recreation therapist in clinic and if she is not receiving albumin with her paracentesis, we can start that. 4. We will talk with Dr. Baron regarding her cardiac regimen and see maybe if he thinks this may be contributing to her falls. Medicine chinchilla, one thing we could do is add some midodrine as her blood pressures do tend to run low here typically. That may help but we would want to talk to her metal turner first. GI Service will follow along with you as long as she is here in the hospital. If she is going to go home, we will see her tomorrow and we will see her in the outpatient setting after that. Job ID: [id number]
[2019-11-03] MEDS ORDERED: Albumin 25% 25 GM/100 ML BOT IVPB SCH (08:00)
[2019-11-03] MEDS: Furosemide 20 MG TAB PO SCH ×2 (08:07→14:55)
[2019-11-03] MEDS: Calcium Carbonate 600 MG + Vit D TAB PO SCH ×2 (08:07→16:36)
[2019-11-03] MEDS: Metoprolol Tartrate 25 MG TAB PO SCH ×2 (08:07→20:24)
[2019-11-03] MEDS: Fenofibrate Nanocrystallized 145 MG TAB PO SCH (08:07)
[2019-11-03] MEDS: Insulin Glargine 10 UNITS in Pre-Filled Syringe 1 EACH SC SCH (08:08)
[2019-11-03] MEDS: Vit A,C & E/Lutein/Minerals Tablet PO SCH ×2 (08:59→21:43)
[2019-11-03] MEDS: Aspirin 325 MG TAB PO SCH (08:59)
--- NOTE | 2019-11-03 11:32 | ULT ---
Ultrasound-guided paracentesis: HISTORY: Recurrent ascites. FINDINGS: Informed consent obtained prior to the procedure. Preprocedural imaging demonstrated intrap eritoneal free fluid. An area was marked in the right mid abdomen in the mid axillary line, and then meticulously prepped a nd draped in normal sterile fashion and anesthetized with 1% buffered lidocaine. With direct sonographic guidance, a 19-gauge needle and 5 Upper [place] Yueh catheter were advanced into the abdomen. After the return of fluid, the catheter was advanced, and the needle was removed. Approximately 4 L of slightly cloudy straw-colored fluid was aspirated. The introducer sheath was rem magdalena, and hemostasis was achieved with direct pressure. A dry sterile dressing was placed. The patient tolerated the procedure well and without immediate complication. IMPRESSION: Technically successful ultrasound-guided paracentesis.
[2019-11-03 12:42] LABS: RBC Count-Automated (BF) 205 /cumm; WBC/Nucleated-Auto (BF) 399 uL
[2019-11-03 12:44] LABS: BF Color Yellow; Body Fluid Source Ascites Body Fluid; Clarity Hazy (Clear); Tube # EDTA
[2019-11-03 13:10] LABS: BF Segmented Neutrophils 61 %; Cell Count Non Hematic 17 %; Lymphocytes 22 %
--- NOTE | 2019-11-03 13:55 | PDOC.HOSPP ---
- Subjective Encounter Date: 11/03/19 Encounter Time: 11:00 Subjective: feels better, no sob or abd pain says she took her morning meds and insulin - Objective Vital Signs & Weight: Vital Signs (12 hours) Temp Pulse Resp BP Pulse Ox 11/03/19 07:29 97.3 F L 97 18 111/73 100 Weight Admit Weight 141 lb 11.2 oz Weight 141 lb 11.2 oz I&O: 11/02/19 11/03/19 11/04/19 06:59 06:59 06:59 Intake Total 1000 Balance 1000 Result Diagrams: 11/01/19 05:30 11/02/19 05:34 Additional Labs: Accuchecks 11/03/19 11/02/19 11/02/19 05:33 19:46 16:42 POC Glucose 208 H 367 H 298 H Hospitalist ROS - Medication Medications: Active Medications Generic Name Dose Route Start Last Admin Trade Name Freq PRN Reason Stop Dose Admin Acetaminophen 650 mg 10/30/19 13:20 10/30/19 23:58 Tylenol PO 650 mg Q4H PRN Administration Headache/Fever/Mild Pain (1-3) Acetaminophen/Codeine Phosphate 1 tab 10/30/19 13:20 11/03/19 05:31 Tylenol #3 PO 1 tab Q6HR PRN Administration mild Pain Hydrocodone Bitart/Acetaminophen 1 tab 10/30/19 13:20 11/02/19 20:46 [place] 5/325 PO 1 tab Q4H PRN Administration Moderate Pain (4-6) Aspirin 325 mg 10/31/19 09:00 11/03/19 08:59 Aspirin PO Not Given DAILY PATR[facility]IA Calcium/Vitamin D 1 tab 10/31/19 17:00 11/03/19 08:07 Caltrate 600 + Vit D PO 1 tab BID-WM PATRICIA Administration Digoxin 0.25 mg 10/31/19 21:00 11/02/19 20:46 Lanoxin PO 0.25 mg HS PATRICIA Administration Ezetimibe 10 mg 10/30/19 21:00 11/02/19 20:48 Zetia PO 10 mg HS PATR[facility]IA Administration Fenofibrate 145 mg 10/31/19 09:00 11/03/19 08:07 Tricor PO 145 mg DAILY PATR[facility]IA Administration Furosemide 20 mg 11/03/19 09:00 05/05/20 08:07 Lasix PO 20 mg 0900,1400 [facility] Administration Insulin Glargine 10 units/ 0.1 mls @ 0 mls/hr 11/02/19 09:00 11/03/19 08:08 Miscellaneous Medication SC 0.1 mls QAM [facility] Administration Insulin Human Lispro 0 units 10/30/19 13:20 11/02/19 06:29 Humalog SC 2 unit .MODERATE SLIDING SC PRN Administration Moderate Correctional Scale Insulin Human Lispro 0 units 10/30/19 13:20 11/02/19 20:45 Humalog SC 5 unit .BEDTIME SLIDING SC PRN Administration Bedtime Correctional Scale Isosorbide Mononitrate 60 mg 10/31/19 09:00 11/03/19 08:08 Imdur PO 60 mg DAILY [facility] Administration Lactulose 20 gm 11/02/19 21:00 11/03/19 08:09 Lactulose PO 20 gm TID PATR[facility]IA Administration Metoprolol Tartrate 12.5 mg 10/31/19 09:00 11/03/19 08:07 Lopressor PO 12.5 mg BID [facility] Administration Mometasone Furoate 1 puff 10/30/19 18:30 11/02/19 18:29 Asmanex INH 1 puff 1830 [facility] Administration Multivitamins/Minerals 1 tab 10/31/19 09:00 11/03/19 08:59 Ocuvite With Lutein PO Not Given BID [facility] Pantoprazole Sodium 40 mg 10/31/19 09:00 11/03/19 08:07 Protonix PO 40 mg DAILY PATR[facility]IA Administration Ranolazine 500 mg 10/30/19 21:00 11/03/19 08:08 Ranexa PO 500 mg BID [facility] Administration Rosuvastatin Calcium 20 mg 10/30/19 21:00 11/02/19 20:47 Crestor PO 20 mg HS PATRICIA Administration - Exam General Appearance: awake alert Eye: PERRL, anicteric sclera ENT: no oropharyngeal lesions, moist mucosa Neck: supple, no JVD Heart: RRR, no murmur Respiratory: no wheezes, no rales Gastrointestinal: soft, normal bowel sounds, no guarding, no rigidity Extremities: no cyanosis, 1+ LE edema Neurological: cranial nerve grossly intact, no focal deficits Hosp A/P (1) Humerus fracture Code(s): S42.309A - UNSP FRACTURE OF SHAFT OF HUMERUS, UNSP ARM, INIT Status: Acute Qualifiers: Encounter type: subsequent encounter Fracture type: closed (2) Frequent falls Code(s): R29.6 - REPEATED FALLS Status: Acute (3) Dementia Code(s): F03.90 - UNSPECIFIED DEMENTIA WITHOUT BEHAVIORAL DISTURBANCE Status: Suspected Qualifiers: Dementia type: Alzheimer's disease Dementia behavioral disturbance: without behavioral disturbance (4) DM type 2 (diabetes mellitus, type 2) Status: Chronic Qualifiers: Diabetes mellitus intermediate frame tender insulin use: with custodial use Diabetes mellitus complication status: with hyperglycemia Qualified Code(s): E11.65 - Type 2 diabetes mellitus with hyperglycemia; Z79.4 - intermediate frame tender (current) use of insulin (5) Cirrhosis of liver with ascites Code(s): K74.60 - UNSPECIFIED CIRRHOSIS OF LIVER; R18.8 - OTHER ASCITES Status : Chronic Qualifiers: Hepatic cirrhosis type: unspecified hepatic cirrhosis Qualified Code(s): K74.60 - Unspecified cirrhosis of liver; R18.8 - Other ascites (6) CAD (coronary artery disease) Code(s): I25.10 - ATHSCL HEART DISEASE OF [place] CORONARY ARTERY W/O ANG PCTRS Status: Chronic Qualifiers: Coronary Disease-Associated Artery/Lesion type: bypass graft [place] vs. transplanted heart: [place] heart Associated angina: without angina Qualified Code(s): I25.810 - Atherosclerosis of coronary artery bypass graft(s) without angina pectoris - Plan for med mgmt of b/l humerus fractures had paracentesis on admission for cirrhosis sec to [facility], repeat paracentesis today dc plan is to [facility] when cleared by GI, await ascitic fluid cell count dm is labile, encourage po intake continue asp, digoxin, zetia, tricor, lantus, imdur, lopressor, crestor and ranexa hemostable echo showed ef of 60%
[2019-11-03] MEDS: HumaLOG 300 UNITS/3 ML VIAL SC PRN ×2 (16:38→22:10)
[2019-11-03] MEDS: cefTRIAXone\\ROCEPHIN 2 GM in Sodium Chloride 0.9% 100 ML IVPB SCH (17:54)
[2019-11-03] MEDS: Digoxin 0.25 MG TAB PO SCH (20:23)
[2019-11-03] MEDS: Ezetimibe 10 MG TAB PO SCH (20:24)
[2019-11-03] MEDS: Rosuvastatin 20 MG TAB PO SCH (20:24)
[2019-11-03] MEDS: Mometasone Furoate 30 PUFF 220 MCG INH SCH (20:43)
--- NOTE | 2019-11-03 21:10 | PRG ---
DATE OF SERVICE: 11/03/2019 SUBJECTIVE: Ms. Thomas underwent ultrasound-guided paracentesis today of 4 L of straw-colored fluid. She says that this went well. She is breathing easily and not having any abdominal pain or nausea. She is tolerating her diet. Ascites fluid studies came back showing wbc's 399 with 61% PMNs, which calculates out to 243 PMNs. She has remained afebrile and hemodynamically stable today. OBJECTIVE: VITAL SIGNS: Temperature 97.3, pulse 97, blood pressure 111/73, 100% oxygen saturation on room air. GENERAL: No acute distress, sitting up in bed comfortably, eating dinner. HEART: Regular rate and rhythm. LUNGS: Clear to auscultation bilaterally. ABDOMEN: Mild distention, soft, and nontender to palpation. EXTREMITIES: No peripheral edema. LABORATORY STUDIES: Ascites fluid showed 399 wbc's, 205 rbc's, 61% segmented neutrophils, which calculates out to 243 neutrophils. Labs from yesterday showed BUN 21, creatinine 1.03, sodium 130, potassium 5.9, glucose is 428. Ammonia only 24. ASSESSMENT AND PLAN: 1. Cirrhosis secondary to nonalcoholic steatohepatitis. 2. Chronic ascites. I discussed the ascites fluid studies with the patient. Total PMN count comes out to 243, which does not quite meet criteria for SBP in the absence of any fever or leukocytosis or significant abdominal pain, I have very low concern for any peritonitis. She will not require antibiotics from a GI standpoint, I think she could be discharged, with close followup planned with Dr. Mason in the outpatient clinic. GI will sign off, but please call back anytime with questions or concerns. Job ID: [id number]
[2019-11-04] MEDS: Calcium Carbonate 600 MG + Vit D TAB PO SCH ×2 (09:50→16:30)
[2019-11-04] MEDS: Vit A,C & E/Lutein/Minerals Tablet PO SCH ×2 (09:50→20:31)
[2019-11-04] MEDS: Fenofibrate Nanocrystallized 145 MG TAB PO SCH (09:50)
[2019-11-04] MEDS: Aspirin 325 MG TAB PO SCH (09:50)
[2019-11-04] MEDS: Insulin Glargine 10 UNITS in Pre-Filled Syringe 1 EACH SC SCH ×2 (09:50→20:29)
[2019-11-04] MEDS: Furosemide 20 MG TAB PO SCH ×2 (09:50→14:28)
[2019-11-04] MEDS: Metoprolol Tartrate 25 MG TAB PO SCH ×2 (09:51→20:31)
[2019-11-04] MEDS: Acetaminophen 325 MG TAB PO PRN (11:24)
[2019-11-04] MEDS: HumaLOG 300 UNITS/3 ML VIAL SC PRN ×2 (11:30→20:30)
--- NOTE | 2019-11-04 12:28 | PDOC.HOSPP ---
- Subjective Encounter Date: 11/04/19 Encounter Time: 07:45 Subjective: no sob or abd pain feels better responds well and is oriented this am - Objective Vital Signs & Weight: Vital Signs (12 hours) Temp Pulse Resp BP Pulse Ox 11/04/19 08:00 96 11/04/19 07:31 97.3 F L 72 20 132/65 96 Weight Admit Weight 141 lb 11.2 oz Weight 141 lb 11.2 oz I&O: 11/03/19 11/04/19 11/05/19 06:59 06:59 06:59 Intake Total 1000 400 400 Output Total 4000 Balance 1000 -3600 400 Result Diagrams: 11/01/19 05:30 11/02/19 05:34 Additional Labs: Accuchecks 11/04/19 11/04/19 11/03/19 11:24 06:16 22:14 POC Glucose 286 H 230 H 360 H 11/03/19 11/03/19 20:43 16:20 POC Glucose 344 H 428 H Hospitalist ROS - Medication Medications: Active Medications Generic Name Dose Route Start Last Admin Trade Name Freq PRN Reason Stop Dose Admin Acetaminophen 650 mg 10/30/19 13:20 11/04/19 11:24 Tylenol PO 650 mg Q4H PRN Administration Headache/Fever/Mild Pain (1-3) Acetaminophen/Codeine Phosphate 1 tab 10/30/19 13:20 11/03/19 05:31 Tylenol #3 PO 1 tab Q6HR PRN Administration mild Pain Hydrocodone Bitart/Acetaminophen 1 tab 10/30/19 13:20 11/02/19 20:46 [place] 5/325 PO 1 tab Q4H PRN Administration Moderate Pain (4-6) Aspirin 325 mg 10/31/19 09:00 11/04/19 09:50 Aspirin PO 325 mg DAILY PATR[facility]IA Administration Calcium/Vitamin D 1 tab 10/31/19 17:00 11/04/19 09:50 Caltrate 600 + Vit D PO 1 tab BID-WM PATRICIA Administration Digoxin 0.25 mg 10/31/19 21:00 11/03/19 20:23 Lanoxin PO 0.25 mg HS PATRICIA Administration Ezetimibe 10 mg 10/30/19 21:00 11/03/19 20:24 Zetia PO 10 mg HS PATR[facility]IA Administration Fenofibrate 145 mg 10/31/19 09:00 11/04/19 09:50 Tricor PO 145 mg DAILY [facility] Administration Furosemide 20 mg 11/03/19 09:00 11/04/19 09:50 Lasix PO 20 mg 0900,1400 [facility] Administration Insulin Glargine 10 units/ 0.1 mls @ 0 mls/hr 11/02/19 09:00 11/04/19 09:50 Miscellaneous Medication SC Not Given QAM [facility] Ceftriaxone Sodium 2 gm/ 100 mls @ 200 mls/hr 11/03/19 17:00 11/03/19 17:54 Sodium Chloride IVPB 100 mls Q24HR PATRICIA Administration Insulin Human Lispro 0 units 10/30/19 13:20 11/04/19 11:30 Humalog SC 6 unit .MODERATE SLIDING SC PRN Administration Moderate Correctional Scale Insulin Human Lispro 0 units 10/30/19 13:20 11/03/19 22:10 Humalog SC 5 unit .BEDTIME SLIDING SC PRN Administration Bedtime Correctional Scale Isosorbide Mononitrate 60 mg 10/31/19 09:00 11/04/19 09:50 Imdur PO 60 mg DAILY [facility] Administration Lactulose 20 gm 11/02/19 21:00 11/04/19 09:51 Lactulose PO 20 gm TID [facility] Administration Metoprolol Tartrate 12.5 mg 10/31/19 09:00 11/04/19 09:51 Lopressor PO 12.5 mg BID [facility] Administration Mometasone Furoate 1 puff 10/30/19 18:30 11/03/19 20:43 Asmanex INH Not Given 1830 [facility] Multivitamins/Minerals 1 tab 10/31/19 09:00 11/04/19 09:50 Ocuvite With Lutein PO 1 tab BID [facility] Administration Pantoprazole Sodium 40 mg 10/31/19 09:00 11/04/19 09:51 Protonix PO 40 mg DAILY [facility] Administration Ranolazine 500 mg 10/30/19 21:00 11/04/19 09:50 Ranexa PO 500 mg BID [facility] Administration Rosuvastatin Calcium 20 mg 10/30/19 21:00 11/03/19 20:24 Crestor PO 20 mg HS [facility] Administration - Exam General Appearance: awake alert Eye: PERRL, anicteric sclera ENT: no oropharyngeal lesions, moist mucosa Neck: supple, no JVD Heart: RRR, no murmur Respiratory: no wheezes, no rales Gastrointestinal: soft, non-tender, normal bowel sounds Extremities: no cyanosis, no edema Neurological: cranial nerve grossly intact, no focal deficits Hosp A/P (1) Humerus fracture Code(s): S42.309A - UNSP FRACTURE OF SHAFT OF HUMERUS, UNSP ARM, INIT Status: Acute Qualifiers: Encounter type: subsequent encounter Fracture type: closed (2) Frequent falls Code(s): R29.6 - REPEATED FALLS Status: Acute (3) Dementia Code(s): F03.90 - UNSPECIFIED DEMENTIA WITHOUT BEHAVIORAL DISTURBANCE Status: Suspected Qualifiers: Dementia type: Alzheimer's disease Dementia behavioral disturbance: without behavioral disturbance (4) DM type 2 (diabetes mellitus, type 2) Status: Chronic Qualifiers: Diabetes mellitus [employer] insulin use: with [employer] use Diabetes mellitus complication status: with hyperglycemia Qualified Code(s): E11.65 - Type 2 diabetes mellitus with hyperglycemia; Z79.4 - [employer] (current) use of insulin (5) Cirrhosis of liver with ascites Code(s): K74.60 - UNSPECIFIED CIRRHOSIS OF LIVER; R18.8 - OTHER ASCITES Status : Chronic Qualifiers: Hepatic cirrhosis type: unspecified hepatic cirrhosis Qualified Code(s): K74.60 - Unspecified cirrhosis of liver; R18.8 - Other ascites (6) CAD (coronary artery disease) Code(s): I25.10 - ATHSCL HEART DISEASE OF [place] CORONARY ARTERY W/O ANG PCTRS Status: Chronic Qualifiers: Coronary Disease-Associated Artery/Lesion type: bypass graft [place] vs. transplanted heart: [place] heart Associated angina: without angina Qualified Code(s): I25.810 - Atherosclerosis of coronary artery bypass graft(s) without angina pectoris - Plan for med mgmt of b/l humerus fractures had paracentesis on admission for cirrhosis sec to [facility], repeat paracentesis 11/02 dc plan is to sn[facility] when accepted, no sign of sbp, is cleared by GI for dc dm is labile, encourage po intake continue asp, digoxin, zetia, tricor, lantus, imdur, lopressor, crestor and ranexa hemostable echo showed ef of 60%
[2019-11-04] MEDS: Acetaminophen/Codeine 30-300mg Tablet PO PRN (14:31)
[2019-11-04] MEDS: cefTRIAXone\\ROCEPHIN 2 GM in Sodium Chloride 0.9% 100 ML IVPB SCH (16:25)
[2019-11-04] MEDS: HYDROcodone/Acetaminophen 5/325 mg Tablet PO PRN (16:26)
[2019-11-04] MEDS: Digoxin 0.25 MG TAB PO SCH (20:31)
[2019-11-04] MEDS: Rosuvastatin 20 MG TAB PO SCH (20:31)
[2019-11-04] MEDS: Ezetimibe 10 MG TAB PO SCH (20:31)
[2019-11-05] MEDS: Acetaminophen/Codeine 30-300mg Tablet PO PRN ×2 (05:31→21:18)
[2019-11-05] MEDS: Vit A,C & E/Lutein/Minerals Tablet PO SCH ×2 (09:33→21:16)
[2019-11-05] MEDS: Metoprolol Tartrate 25 MG TAB PO SCH ×2 (09:33→21:16)
[2019-11-05] MEDS: Aspirin 325 MG TAB PO SCH (09:33)
[2019-11-05] MEDS: Calcium Carbonate 600 MG + Vit D TAB PO SCH ×2 (09:33→17:22)
[2019-11-05] MEDS: Fenofibrate Nanocrystallized 145 MG TAB PO SCH (09:34)
[2019-11-05] MEDS: Furosemide 20 MG TAB PO SCH ×2 (09:34→13:23)
[2019-11-05] MEDS: Acetaminophen 325 MG TAB PO PRN (09:42)
[2019-11-05 10:46] LABS: Anion Gap 13 mmol/L (10-20); BUN (Urea Nitrogen) 20 mg/dL (9.8-20.1); Calc. Creatinine Clearance 49 mL/min (70-130); Calcium 8.6 mg/dL (7.8-10.44); Carbon Dioxide 25 mmol/L (23-31); Chloride 96 mmol/L (98-107); Estimated GFR-MDRD 61; Glucose 158 mg/dL (83-110); Potassium 3.9 mmol/L (3.5-5.1); Sodium 130 mmol/L (136-145)
[2019-11-05] MEDS: cefTRIAXone\\ROCEPHIN 2 GM in Sodium Chloride 0.9% 100 ML IVPB SCH (17:21)
[2019-11-05] MEDS: HumaLOG 300 UNITS/3 ML VIAL SC PRN (18:12)
[2019-11-05] MEDS: Ezetimibe 10 MG TAB PO SCH (21:16)
[2019-11-05] MEDS: Rosuvastatin 20 MG TAB PO SCH (21:17)
[2019-11-05] MEDS: Digoxin 0.25 MG TAB PO SCH (21:17)
[2019-11-05] MEDS: Insulin Glargine 10 UNITS in Pre-Filled Syringe 1 EACH SC SCH (21:19)
--- NOTE | 2019-11-05 22:41 | PDOC.HOSPP ---
- Subjective Encounter Date: 11/05/19 Encounter Time: 11:30 Subjective: Patient seen and examined for gen weakness. No new complaints. No overnight events - Objective Vital Signs & Weight: Vital Signs (12 hours) Temp Pulse Resp BP BP Pulse Ox 11/05/19 21:17 70 11/05/19 20:00 100 11/05/19 19:44 97.6 F 75 18 105/61 100 11/05/19 18:09 97.6 F 80 20 104/58 L 100 Weight Admit Weight 141 lb 11.2 oz Weight 141 lb 11.2 oz I&O: 11/04/19 11/05/19 11/06/19 06:59 06:59 06:59 Intake Total 400 1280 720 Output Total 4000 Balance -3600 1280 720 Result Diagrams: 11/01/19 05:30 11/05/19 10:15 Additional Labs: Accuchecks 11/05/19 11/05/19 11/05/19 19:54 18:10 04:25 POC Glucose 292 H 368 H 188 H 11/04/19 20:22 POC Glucose 361 H Hospitalist ROS - Review of Systems Respiratory: denies: cough, dry, shortness of breath, hemoptysis, SOB with excertion, pleuritic pain, sputum, wheezing, other Cardiovascular: denies: chest pain, palpitations, orthopnea, paroxysmal noc. dyspnea, edema, light headedness, other - Medication Medications: Active Medications Generic Name Dose Route Start Last Admin Trade Name Freq PRN Reason Stop Dose Admin Acetaminophen 650 mg 10/30/19 13:20 11/05/19 09:42 Tylenol PO 650 mg Q4H PRN Administration Headache/Fever/Mild Pain (1-3) Acetaminophen/Codeine Phosphate 1 tab 10/30/19 13:20 11/05/19 21:18 Tylenol #3 PO 1 tab Q6HR PRN Administration mild Pain Hydrocodone Bitart/Acetaminophen 1 tab 10/30/19 13:20 11/02/19 20:46 [place] 5/325 PO 1 tab Q4H PRN Administration Moderate Pain (4-6) Aspirin 325 mg 10/31/19 09:00 11/05/19 09:33 Aspirin PO 325 mg DAILY PATRICIA Administration Calcium/Vitamin D 1 tab 10/31/19 17:00 11/05/19 17:22 Caltrate 600 + Vit D PO 1 tab BID-WM PATR[facility]IA Administration Digoxin 0.25 mg 10/31/19 21:00 11/05/19 21:17 Lanoxin PO 0.25 mg HS PATR[facility]IA Administration Ezetimibe 10 mg 10/30/19 21:00 11/05/19 21:16 Zetia PO 10 mg HS [facility] Administration Fenofibrate 145 mg 10/31/19 09:00 11/05/19 09:34 Tricor PO 145 mg DAILY [facility] Administration Furosemide 20 mg 11/03/19 09:00 11/05/19 13:23 Lasix PO 20 mg 0900,1400 [facility] Administration Ceftriaxone Sodium 2 gm/ 100 mls @ 200 mls/hr 11/03/19 17:00 11/05/19 17:21 Sodium Chloride IVPB 100 mls Q24HR [facility] Administration Insulin Glargine 10 units/ 0.1 mls @ 0 mls/hr 11/04/19 21:00 11/05/19 21:19 Miscellaneous Medication SC 0.1 mls QPM [facility] Administration Insulin Human Lispro 0 units 10/30/19 13:20 11/05/19 18:12 Humalog SC 10 unit .MODERATE SLIDING SC PRN Administration Moderate Correctional Scale Insulin Human Lispro 0 units 10/30/19 13:20 11/04/19 20:30 Humalog SC 5 unit .BEDTIME SLIDING SC PRN Administration Bedtime Correctional Scale Isosorbide Mononitrate 60 mg 10/31/19 09:00 11/05/19 09:33 Imdur PO 60 mg DAILY [facility] Administration Lactulose 20 gm 11/02/19 21:00 11/05/19 21:17 Lactulose PO 20 gm TID [facility] Administration Metoprolol Tartrate 12.5 mg 10/31/19 09:00 11/05/19 21:16 Lopressor PO 12.5 mg BID [facility] Administration Mometasone Furoate 1 puff 10/30/19 18:30 11/03/19 20:43 Asmanex INH Not Given 1830 [facility] Morphine Sulfate 2 mg 10/30/19 13:37 11/04/19 19:17 Morphine SLOW IVP 2 mg Q4H PRN Administration Severe Pain (7-10) Multivitamins/Minerals 1 tab 10/31/19 09:00 11/05/19 21:16 Ocuvite With Lutein PO 1 tab BID [facility] Administration Pantoprazole Sodium 40 mg 10/31/19 09:00 11/05/19 09:34 Protonix PO 40 mg DAILY [facility] Administration Ranolazine 500 mg 10/30/19 21:00 11/05/19 21:16 Ranexa PO 500 mg BID [facility] Administration Rosuvastatin Calcium 20 mg 10/30/19 21:00 11/05/19 21:17 Crestor PO 20 mg HS PATR[facility]IA Administration - Exam General Appearance: NAD Neck: supple, no JVD Heart: RRR, no gallops Respiratory: no wheezes, no ronchi Gastrointestinal: non-tender, non-distended, normal bowel sounds Extremities: no cyanosis Hosp A/P - Plan DVT proph w/SCDs Gen weakness Rt Humeral fracture Cirrhosis due to KEVIN Ascites s/p paracentesis Chronic hyponatremia CAD s/p bioprosthetic AVR DM2 with hypoglycemia Par Afib Chronic Anemia - prob due to nutritional def PLAN: DC Ceftriaxone - SBP ruled out Reduce Lactulose dose Cont PT/OT Await SNF placement Cont ASA/ sliding scale and other meds as above AM labs
[2019-11-06 05:42] LABS: Mean Corpuscular Hemoglobin 23.2 pg (27.0-31.0); Mean Corpuscular Volume 74.9 fL (78.0-98.0); Mean Platelet Volume 7.7 fL (7.4-10.4); Platelet Count 246 thou/uL (130-400); RBC Distribution Width 16.7 % (11.5-14.5); Red Blood Cell (RBC) Count 3.88 mill/uL (4.20-5.40); White Blood Cell (WBC) Count 4.8 thou/uL (4.8-10.8)
[2019-11-06 05:49] LABS: Anion Gap 13 mmol/L (10-20); BUN (Urea Nitrogen) 22 mg/dL (9.8-20.1); Calc. Creatinine Clearance 47 mL/min (70-130); Carbon Dioxide 25 mmol/L (23-31); Chloride 96 mmol/L (98-107); Estimated GFR-MDRD 57; Glucose 183 mg/dL (83-110); Potassium 4.3 mmol/L (3.5-5.1); Sodium 130 mmol/L (136-145)
[2019-11-06 06:51] LABS: #Eosinphils 0.1 thou/uL (0.0-0.7); #Lymphocytes 0.5 thou/uL (1.20-3.40); #Monocytes 0.5 thou/uL (0.11-0.59); #Neutrophils 3.7 thou/uL (1.40-6.50); %Basophils 0.1 % (0.0-1.0); %Eosinophils 2.4 % (0.0-10.0); %Monocytes 9.4 % (0.0-10.0); Anisocytosis SLIGHT = 6-15 cells (100X) (0-5/hpf); MDiff Complete? YES; Macrocytosis SLIGHT = 6-15 cells (100X) (0-5/hpf)
[2019-11-06] MEDS: Calcium Carbonate 600 MG + Vit D TAB PO SCH ×2 (08:20→17:13)
[2019-11-06] MEDS: Aspirin 325 MG TAB PO SCH (08:20)
[2019-11-06] MEDS: Furosemide 20 MG TAB PO SCH ×2 (08:21→14:00)
[2019-11-06] MEDS: Metoprolol Tartrate 25 MG TAB PO SCH ×2 (08:21→20:39)
[2019-11-06] MEDS: Fenofibrate Nanocrystallized 145 MG TAB PO SCH (08:21)
[2019-11-06] MEDS: Vit A,C & E/Lutein/Minerals Tablet PO SCH ×2 (08:22→20:39)
[2019-11-06] MEDS: Acetaminophen/Codeine 30-300mg Tablet PO PRN ×2 (08:34→20:48)
--- NOTE | 2019-11-06 14:19 | PDOC.HOSPP ---
- Subjective Encounter Date: 11/06/19 Encounter Time: 08:45 Subjective: Patient seen and examined for gen weakness/recurrent falls. No new complaints. No overnight events - Objective Vital Signs & Weight: Vital Signs (12 hours) Temp Pulse Resp BP Pulse Ox 11/06/19 09:27 97.9 F 86 18 115/65 96 Weight Admit Weight 141 lb 11.2 oz Weight 141 lb 11.2 oz I&O: 11/05/19 11/06/19 11/07/19 06:59 06:59 06:59 Intake Total 1280 1170 Balance 1280 1170 Result Diagrams: 11/06/19 05:18 11/06/19 05:18 Additional Labs: Accuchecks 11/06/19 11/06/19 11/05/19 11:20 04:24 19:54 POC Glucose 221 H 231 H 292 H 11/05/19 18:10 POC Glucose 368 H Hospitalist ROS - Review of Systems Cardiovascular: denies: chest pain, palpitations, orthopnea, paroxysmal noc. dyspnea, edema, light headedness, other Gastrointestinal: denies: nausea, vomiting, abdominal pain, diarrhea, constipation, melena, hematochezia, other - Medication Medications: Active Medications Generic Name Dose Route Start Last Admin Trade Name Freq PRN Reason Stop Dose Admin Acetaminophen 650 mg 10/30/19 13:20 11/05/19 09:42 Tylenol PO 650 mg Q4H PRN Administration Headache/Fever/Mild Pain (1-3) Acetaminophen/Codeine Phosphate 1 tab 10/30/19 13:20 11/06/19 08:34 Tylenol #3 PO 1 tab Q6HR PRN Administration mild Pain Hydrocodone Bitart/Acetaminophen 1 tab 10/30/19 13:20 11/02/19 20:46 [place] 5/325 PO 1 tab Q4H PRN Administration Moderate Pain (4-6) Aspirin 325 mg 10/31/19 09:00 11/06/19 08:20 Aspirin PO 325 mg DAILY [facility] Administration Calcium/Vitamin D 1 tab 10/31/19 17:00 11/06/19 08:20 Caltrate 600 + Vit D PO 1 tab BID-WM [facility] Administration Digoxin 0.25 mg 10/31/19 21:00 11/05/19 21:17 Lanoxin PO 0.25 mg HS [facility] Administration Ezetimibe 10 mg 10/30/19 21:00 11/05/19 21:16 Zetia PO 10 mg HS [facility] Administration Fenofibrate 145 mg 10/31/19 09:00 11/06/19 08:21 Tricor PO 145 mg DAILY [facility] Administration Insulin Glargine 10 units/ 0.1 mls @ 0 mls/hr 11/04/19 21:00 11/05/19 21:19 Miscellaneous Medication SC 0.1 mls QPM [facility] Administration Insulin Human Lispro 0 units 10/30/19 13:20 11/05/19 18:12 Humalog [place] 10 unit .MODERATE SLIDING SC PRN Administration Moderate Correctional Scale Insulin Human Lispro 0 units 10/30/19 13:20 11/04/19 20:30 Humalog [place] 5 unit .BEDTIME SLIDING SC PRN Administration Bedtime Correctional Scale Isosorbide Mononitrate 60 mg 10/31/19 09:00 11/06/19 08:21 Imdur PO 60 mg DAILY [facility] Administration Lactulose 10 gm 11/06/19 09:00 11/06/19 14:00 Lactulose PO 10 gm TID [facility] Administration Metoprolol Tartrate 12.5 mg 10/31/19 09:00 11/06/19 08:21 Lopressor PO 12.5 mg BID [facility] Administration Mometasone Furoate 1 puff 10/30/19 18:30 11/03/19 20:43 Asmanex INH Not Given 1830 [facility] Morphine Sulfate 2 mg 10/30/19 13:37 11/04/19 19:17 Morphine SLOW IVP 2 mg Q4H PRN Administration Severe Pain (7-10) Multivitamins/Minerals 1 tab 10/31/19 09:00 11/06/19 08:22 Ocuvite With Lutein PO 1 tab BID [facility] Administration Pantoprazole Sodium 40 mg 10/31/19 09:00 11/06/19 08:22 Protonix PO 40 mg DAILY [facility] Administration Ranolazine 500 mg 10/30/19 21:00 11/06/19 08:21 Ranexa PO 500 mg BID [facility] Administration Rosuvastatin Calcium 20 mg 10/30/19 21:00 11/05/19 21:17 Crestor PO 20 mg HS [facility] Administration - Exam General Appearance: NAD Heart: RRR, no gallops Respiratory: no wheezes, no ronchi Gastrointestinal: non-tender, non-distended, normal bowel sounds Extremities: no cyanosis, no clubbing Hosp A/P - Plan DVT proph w/SCDs Gen weakness Rt Humeral fracture - on conservative mngt Cirrhosis due to KEVIN Ascites s/p paracentesis x 2 this admission Chronic hyponatremia CAD s/p bioprosthetic AVR DM2 Hypoglycemia Par Afib Chronic Anemia - prob due to nutritional def PLAN: Cont Lactulose DC Lasix Cont ASA/ sliding scale Cont PT/OT Cont other meds as above Await SNF placement - stable for dc
[2019-11-06] MEDS: HumaLOG 300 UNITS/3 ML VIAL SC PRN (17:13)
[2019-11-06] MEDS: Rosuvastatin 20 MG TAB PO SCH (20:39)
[2019-11-06] MEDS: Ezetimibe 10 MG TAB PO SCH (20:40)
[2019-11-06] MEDS: Digoxin 0.25 MG TAB PO SCH (20:40)
[2019-11-06] MEDS: Insulin Glargine 10 UNITS in Pre-Filled Syringe 1 EACH SC SCH (20:41)
[2019-11-06] MEDS: Magnesium Chloride 64 MG TAB PO SCH (20:41)
[2019-11-07] MEDS: Mometasone Furoate 30 PUFF 220 MCG INH SCH ×2 (07:42→20:43)
[2019-11-07] MEDS: Vit A,C & E/Lutein/Minerals Tablet PO SCH ×2 (08:03→20:42)
[2019-11-07] MEDS: Calcium Carbonate 600 MG + Vit D TAB PO SCH ×2 (08:03→16:31)
[2019-11-07] MEDS: Acetaminophen/Codeine 30-300mg Tablet PO PRN (08:03)
[2019-11-07] MEDS: Aspirin 325 MG TAB PO SCH (08:03)
[2019-11-07] MEDS: Metoprolol Tartrate 25 MG TAB PO SCH ×2 (08:04→20:42)
[2019-11-07] MEDS: Rifaximin 550 MG TAB PO SCH (08:05)
[2019-11-07] MEDS: Fenofibrate Nanocrystallized 145 MG TAB PO SCH (08:05)
[2019-11-07] MEDS: Magnesium Chloride 64 MG TAB PO SCH ×2 (09:01→20:42)
--- NOTE | 2019-11-07 11:18 | PDOC.HOSPP ---
- Subjective Encounter Date: 11/07/19 Encounter Time: 10:45 Subjective: Patient seen and examined with recurrent falls/gen weakness. Feels weak. No new complaints. No overnight events - Objective Vital Signs & Weight: Vital Signs (12 hours) Temp Pulse Resp BP Pulse Ox 11/07/19 07:40 97.7 F 66 14 119/68 100 11/07/19 04:08 97.7 F 64 18 123/57 L 100 Weight Admit Weight 141 lb 11.2 oz Weight 141 lb 11.2 oz I&O: 11/06/19 11/07/19 11/08/19 06:59 06:59 06:59 Intake Total 1170 1410 Balance 1170 1410 Result Diagrams: 11/06/19 05:18 11/06/19 05:18 Additional Labs: Accuchecks 11/07/19 11/07/19 11/06/19 08:07 04:11 16:46 POC Glucose 100 97 317 H 11/06/19 11:20 POC Glucose 221 H Hospitalist ROS - Review of Systems Respiratory: denies: cough, dry, shortness of breath, hemoptysis, SOB with excertion, pleuritic pain, sputum, wheezing, other Cardiovascular: denies: chest pain, palpitations, orthopnea, paroxysmal noc. dyspnea, edema, light headedness, other Gastrointestinal: denies: nausea, vomiting, abdominal pain, diarrhea, constipation, melena, hematochezia, other - Medication Medications: Active Medications Generic Name Dose Route Start Last Admin Trade Name Freq PRN Reason Stop Dose Admin Acetaminophen 650 mg 10/30/19 13:20 11/05/19 09:42 Tylenol PO 650 mg Q4H PRN Administration Headache/Fever/Mild Pain (1-3) Acetaminophen/Codeine Phosphate 1 tab 10/30/19 13:20 11/07/19 08:03 Tylenol #3 PO 1 tab Q6HR PRN Administration mild Pain Hydrocodone Bitart/Acetaminophen 1 tab 10/30/19 13:20 11/02/19 20:46 [place] 5/325 PO 1 tab Q4H PRN Administration Moderate Pain (4-6) Aspirin 325 mg 10/31/19 09:00 11/07/19 08:03 Aspirin PO 325 mg DAILY PATRICIA Administration Calcium/Vitamin D 1 tab 10/31/19 17:00 11/07/19 08:03 Caltrate 600 + Vit D PO 1 tab BID-WM PATRICIA Administration Digoxin 0.25 mg 10/31/19 21:00 11/06/19 20:40 Lanoxin PO 0.25 mg HS PATRICIA Administration Ezetimibe 10 mg 10/30/19 21:00 11/06/19 20:40 Zetia PO 10 mg HS PATRICIA Administration Fenofibrate 145 mg 10/31/19 09:00 11/07/19 08:05 Tricor PO 145 mg DAILY PATRICIA Administration Insulin Glargine 10 units/ 0.1 mls @ 0 mls/hr 11/04/19 21:00 11/06/19 20:41 Miscellaneous Medication SC 0.1 mls QPM PATRICIA Administration Insulin Human Lispro 0 units 10/30/19 13:20 11/06/19 17:13 Humalog SC 8 unit .MODERATE SLIDING SC PRN Administration Moderate Correctional Scale Insulin Human Lispro 0 units 10/30/19 13:20 11/04/19 20:30 Humalog SC 5 unit .BEDTIME SLIDING SC PRN Administration Bedtime Correctional Scale Isosorbide Mononitrate 60 mg 10/31/19 09:00 11/07/19 08:05 Imdur PO 60 mg DAILY PATRICIA Administration Lactulose 10 gm 11/06/19 09:00 11/07/19 08:08 Lactulose PO 10 gm TID PATRICIA Administration Magnesium Chloride 64 mg 11/06/19 21:00 11/07/19 09:01 Slow-Mag PO 64 mg BID PATRICIA Administration Metoprolol Tartrate 12.5 mg 10/31/19 09:00 11/07/19 08:04 Lopressor PO 12.5 mg BID PATRICIA Administration Mometasone Furoate 1 puff 10/30/19 18:30 11/07/19 07:42 Asmanex INH Not Given 1830 [facility] Morphine Sulfate 2 mg 10/30/19 13:37 11/04/19 19:17 Morphine SLOW IVP 2 mg Q4H PRN Administration Severe Pain (7-10) Multivitamins/Minerals 1 tab 10/31/19 09:00 11/07/19 08:03 Ocuvite With Lutein PO 1 tab BID PATRICIA Administration Ondansetron HCl 4 mg 10/30/19 13:20 11/07/19 07:55 Zofran IVP 4 mg Q6H PRN Administration Nausea/Vomiting Pantoprazole Sodium 40 mg 10/31/19 09:00 11/07/19 08:05 Protonix PO 40 mg DAILY PATRICIA Administration Ranolazine 500 mg 10/30/19 21:00 11/07/19 08:03 Ranexa PO 500 mg BID PATRICIA Administration Rifaximin 550 mg 11/07/19 09:00 11/07/19 08:05 Xifaxan PO 550 mg DAILY PATRICIA Administration Rosuvastatin Calcium 20 mg 10/30/19 21:00 11/06/19 20:39 Crestor PO 20 mg HS PATRICIA Administration - Exam General Appearance: NAD Heart: RRR, no gallops Respiratory: no wheezes, no ronchi Gastrointestinal: non-tender, normal bowel sounds, no guarding, no rigidity Extremities: no cyanosis, no clubbing Neurological: no new deficit Hosp A/P - Plan DVT proph w/SCDs Gen weakness Rt Humeral fracture - on conservative mngt 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
[2019-11-07] MEDS: HumaLOG 300 UNITS/3 ML VIAL SC PRN (17:36)
[2019-11-07] MEDS: Ezetimibe 10 MG TAB PO SCH (20:41)
[2019-11-07] MEDS: Rosuvastatin 20 MG TAB PO SCH (20:42)
[2019-11-07] MEDS: Digoxin 0.25 MG TAB PO SCH (20:42)
[2019-11-07] MEDS: Insulin Glargine 10 UNITS in Pre-Filled Syringe 1 EACH SC SCH (20:42)
[2019-11-08] MEDS: Acetaminophen/Codeine 30-300mg Tablet PO PRN (08:43)
[2019-11-08] MEDS: Magnesium Chloride 64 MG TAB PO SCH ×2 (08:55→19:31)
[2019-11-08] MEDS: Calcium Carbonate 600 MG + Vit D TAB PO SCH ×2 (08:55→16:28)
[2019-11-08] MEDS: Aspirin 325 MG TAB PO SCH (08:55)
[2019-11-08] MEDS: Rifaximin 550 MG TAB PO SCH (08:55)
[2019-11-08] MEDS: Vit A,C & E/Lutein/Minerals Tablet PO SCH ×2 (08:55→19:31)
[2019-11-08] MEDS: Metoprolol Tartrate 25 MG TAB PO SCH ×2 (08:55→22:10)
[2019-11-08] MEDS: Fenofibrate Nanocrystallized 145 MG TAB PO SCH (08:55)
[2019-11-08 12:29] LABS: #Eosinphils 0.1 thou/uL (0.0-0.7); #Lymphocytes 0.7 thou/uL (1.20-3.40); #Monocytes 0.5 thou/uL (0.11-0.59); #Neutrophils 6.4 thou/uL (1.40-6.50); %Basophils 0.4 % (0.0-1.0); %Eosinophils 1.1 % (0.0-10.0); %Lymphocytes 8.6 % (21.0-51.0); %Monocytes 6.7 % (0.0-10.0); %Neutrophils 83.2 % (42.0-75.0); Hemoglobin 10.1 g/dL (12.0-16.0); Mean Corpuscular HGB CONC 30.3 g/dL (32.0-36.0); Mean Corpuscular Volume 75.7 fL (78.0-98.0); Mean Platelet Volume 7.2 fL (7.4-10.4); Platelet Count 290 thou/uL (130-400); RBC Distribution Width 17.1 % (11.5-14.5); Red Blood Cell (RBC) Count 4.39 mill/uL (4.20-5.40); White Blood Cell (WBC) Count 7.6 thou/uL (4.8-10.8)
[2019-11-08 12:44] LABS: Anion Gap 13 mmol/L (10-20); BUN (Urea Nitrogen) 20 mg/dL (9.8-20.1); Calc. Creatinine Clearance 56 mL/min (70-130); Calcium 8.4 mg/dL (7.8-10.44); Carbon Dioxide 28 mmol/L (23-31); Chloride 96 mmol/L (98-107); Estimated GFR-MDRD 70; Glucose 169 mg/dL (83-110); Potassium 4.8 mmol/L (3.5-5.1); Sodium 132 mmol/L (136-145)
--- NOTE | 2019-11-08 13:55 | PDOC.HOSPP ---
- Subjective Encounter Date: 11/08/19 Encounter Time: 12:15 Subjective: Patient seen and examined for Gen weakness with recurrent falls. No new complaints. No overnight events - Objective Vital Signs & Weight: Vital Signs (12 hours) Temp Pulse Resp BP Pulse Ox 11/08/19 07:33 96.9 F L 74 16 122/70 99 Weight Admit Weight 141 lb 11.2 oz Weight 141 lb 11.2 oz I&O: 11/07/19 11/08/19 11/09/19 06:59 06:59 06:59 Intake Total 1410 Balance 1410 Result Diagrams: 11/08/19 12:10 11/08/19 12:10 Additional Labs: Accuchecks 11/08/19 11/08/19 11/07/19 11:45 05:33 20:17 POC Glucose 170 H 114 H 123 H 11/07/19 17:14 POC Glucose 251 H Hospitalist ROS - Review of Systems Respiratory: denies: cough, dry, shortness of breath, hemoptysis, SOB with excertion, pleuritic pain, sputum, wheezing, other Cardiovascular: denies: chest pain, palpitations, orthopnea, paroxysmal noc. dyspnea, edema, light headedness, other Gastrointestinal: denies: nausea, vomiting, abdominal pain, diarrhea, constipation, melena, hematochezia, other - Medication Medications: Active Medications Generic Name Dose Route Start Last Admin Trade Name Freq PRN Reason Stop Dose Admin Acetaminophen 650 mg 10/30/19 13:20 11/05/19 09:42 Tylenol PO 650 mg Q4H PRN Administration Headache/Fever/Mild Pain (1-3) Acetaminophen/Codeine Phosphate 1 tab 10/30/19 13:20 11/08/19 08:43 Tylenol #3 PO 1 tab Q6HR PRN Administration mild Pain Hydrocodone Bitart/Acetaminophen 1 tab 10/30/19 13:20 11/02/19 20:46 [place] 5/325 PO 1 tab Q4H PRN Administration Moderate Pain (4-6) Aspirin 325 mg 10/31/19 09:00 11/08/19 08:55 Aspirin PO Not Given DAILY [facility] Calcium/Vitamin D 1 tab 10/31/19 17:00 11/08/19 08:55 Caltrate 600 + Vit D PO Not Given BID-[facility] Digoxin 0.25 mg 10/31/19 21:00 11/07/19 20:42 Lanoxin PO 0.25 mg HS PATRICIA Administration Ezetimibe 10 mg 10/30/19 21:00 11/07/19 20:41 Zetia PO 10 mg HS PATRICIA Administration Fenofibrate 145 mg 10/31/19 09:00 11/08/19 08:55 Tricor PO Not Given DAILY [facility] Insulin Glargine 10 units/ 0.1 mls @ 0 mls/hr 11/04/19 21:00 11/07/19 20:42 Miscellaneous Medication SC 0.1 mls QPM PATRICIA Administration Insulin Human Lispro 0 units 10/30/19 13:20 11/07/19 17:36 Humalog SC 6 unit .MODERATE SLIDING SC PRN Administration Moderate Correctional Scale Insulin Human Lispro 0 units 10/30/19 13:20 11/04/19 20:30 Humalog SC 5 unit .BEDTIME SLIDING SC PRN Administration Bedtime Correctional Scale Isosorbide Mononitrate 60 mg 10/31/19 09:00 11/08/19 08:55 Imdur PO Not Given DAILY [facility] Lactulose 10 gm 11/06/19 09:00 11/08/19 08:55 Lactulose PO Not Given TID [facility] Magnesium Chloride 64 mg 11/06/19 21:00 11/08/19 08:55 Slow-Mag PO Not Given BID [facility] Metoprolol Tartrate 12.5 mg 10/31/19 09:00 11/08/19 08:55 Lopressor PO Not Given BID [facility] Mometasone Furoate 1 puff 10/30/19 18:30 11/07/19 20:43 Asmanex INH Not Given 1830 [facility] Morphine Sulfate 2 mg 10/30/19 13:37 11/04/19 19:17 Morphine SLOW IVP 2 mg Q4H PRN Administration Severe Pain (7-10) Multivitamins/Minerals 1 tab 10/31/19 09:00 11/08/19 08:55 Ocuvite With Lutein PO Not Given BID [facility] Ondansetron HCl 4 mg 10/30/19 13:20 11/07/19 07:55 Zofran IVP 4 mg Q6H PRN Administration Nausea/Vomiting Pantoprazole Sodium 40 mg 10/31/19 09:00 11/08/19 08:55 Protonix PO Not Given DAILY [facility] Ranolazine 500 mg 10/30/19 21:00 11/08/19 08:55 Ranexa PO Not Given BID [facility] Rifaximin 550 mg 11/07/19 09:00 11/08/19 08:55 Xifaxan PO Not Given DAILY [facility] Rosuvastatin Calcium 20 mg 10/30/19 21:00 11/07/19 20:42 Crestor PO 20 mg HS PATRICIA Administration - Exam General Appearance: NAD Neck: supple, no JVD Heart: no murmur, no rubs Respiratory: no wheezes, no rales, no ronchi Gastrointestinal: non-tender, normal bowel sounds, no guarding, no rigidity Extremities: no cyanosis, no clubbing Neurological: no new deficit Neurological - other findings: no flapping tremors Hosp A/P - Plan DVT proph w/SCDs Gen weakness/recurrent falls Rt Humeral fracture - on conservative mngt 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
[2019-11-08] MEDS: HumaLOG 300 UNITS/3 ML VIAL SC PRN (16:29)
[2019-11-08] MEDS: Mometasone Furoate 30 PUFF 220 MCG INH SCH (19:20)
[2019-11-08] MEDS: Rosuvastatin 20 MG TAB PO SCH (19:31)
[2019-11-08] MEDS: Ezetimibe 10 MG TAB PO SCH (19:31)
[2019-11-08] MEDS: Digoxin 0.25 MG TAB PO SCH (22:10)
[2019-11-08] MEDS: Insulin Glargine 10 UNITS in Pre-Filled Syringe 1 EACH SC SCH (22:12)
[2019-11-09] MEDS: Magnesium Chloride 64 MG TAB PO SCH ×2 (07:52→20:15)
[2019-11-09] MEDS: Vit A,C & E/Lutein/Minerals Tablet PO SCH ×2 (07:53→20:16)
[2019-11-09] MEDS: Calcium Carbonate 600 MG + Vit D TAB PO SCH ×2 (07:53→16:05)
[2019-11-09] MEDS: Aspirin 325 MG TAB PO SCH (07:53)
[2019-11-09] MEDS: Metoprolol Tartrate 25 MG TAB PO SCH ×2 (07:53→20:16)
[2019-11-09] MEDS: Rifaximin 550 MG TAB PO SCH (07:54)
[2019-11-09] MEDS: Fenofibrate Nanocrystallized 145 MG TAB PO SCH (07:54)
--- NOTE | 2019-11-09 11:34 | PDOC.HOSPP ---
- Subjective Encounter Date: 11/09/19 Encounter Time: 10:45 Subjective: no sob or abd pain says her abd is slowly filling up - Objective Vital Signs & Weight: Vital Signs (12 hours) Temp Pulse Resp BP Pulse Ox 11/09/19 08:00 98 11/09/19 07:50 98.2 F 94 18 124/74 98 Weight Admit Weight 141 lb 11.2 oz Weight 141 lb 11.2 oz I&O: 11/08/19 11/09/19 11/10/19 06:59 06:59 06:59 Intake Total 730 Balance 730 Result Diagrams: 11/08/19 12:10 11/08/19 12:10 Additional Labs: Accuchecks 11/09/19 11/09/19 11/08/19 10:52 05:26 22:15 POC Glucose 462 H 175 H 145 H 11/08/19 11/08/19 11/06/19 16:25 11:45 19:56 POC Glucose 316 H 170 H 386 H Hospitalist ROS - Medication Medications: Active Medications Generic Name Dose Route Start Last Admin Trade Name Freq PRN Reason Stop Dose Admin Acetaminophen 650 mg 10/30/19 13:20 11/05/19 09:42 Tylenol PO 650 mg Q4H PRN Administration Headache/Fever/Mild Pain (1-3) Acetaminophen/Codeine Phosphate 1 tab 10/30/19 13:20 11/08/19 08:43 Tylenol #3 PO 1 tab Q6HR PRN Administration mild Pain Hydrocodone Bitart/Acetaminophen 1 tab 10/30/19 13:20 11/02/19 20:46 [place] 5/325 PO 1 tab Q4H PRN Administration Moderate Pain (4-6) Aspirin 325 mg 10/31/19 09:00 11/09/19 07:53 Aspirin PO 325 mg DAILY PATRICIA Administration Calcium/Vitamin D 1 tab 10/31/19 17:00 11/09/19 07:53 Caltrate 600 + Vit D PO 1 tab BID-WM PATRICIA Administration Digoxin 0.25 mg 10/31/19 21:00 11/08/19 22:10 Lanoxin PO Not Given HS PATRICIA Ezetimibe 10 mg 10/30/19 21:00 11/08/19 19:31 Zetia PO Not Given HS PATRICIA Fenofibrate 145 mg 10/31/19 09:00 11/09/19 07:54 Tricor PO [address] [facility] Administration Insulin Glargine 10 units/ 0.1 mls @ 0 mls/hr 11/04/19 21:00 11/08/19 22:12 Miscellaneous Medication SC Not Given QPM [facility] Insulin Human Lispro 0 units 10/30/19 13:20 11/08/19 16:29 Humalog SC 8 unit .MODERATE SLIDING SC PRN Administration Moderate Correctional Scale Insulin Human Lispro 0 units 10/30/19 13:20 11/04/19 20:30 Humalog SC 5 unit .BEDTIME SLIDING SC PRN Administration Bedtime Correctional Scale Isosorbide Mononitrate 60 mg 10/31/19 09:00 11/09/19 07:54 Imdur PO [address] [facility] Administration Lactulose 10 gm 11/06/19 09:00 11/09/19 07:54 Lactulose PO Not Given TID [facility] Magnesium Chloride 64 mg 11/06/19 21:00 11/09/19 07:52 Slow-Mag PO [address] [facility] Administration Metoprolol Tartrate 12.5 mg 10/31/19 09:00 11/09/19 07:53 Lopressor PO 12.[address] [facility] Administration Mometasone Furoate 1 puff 10/30/19 18:30 11/08/19 19:20 Asmanex INH Not Given 1830 [facility] Morphine Sulfate 2 mg 10/30/19 13:37 11/04/19 19:17 Morphine SLOW IVP 2 mg Q4H PRN Administration Severe Pain (7-10) Multivitamins/Minerals 1 tab 10/31/19 09:00 11/09/19 07:53 Ocuvite With Lutein PO [address] [facility] Administration Ondansetron HCl 4 mg 10/30/19 13:20 11/07/19 07:55 Zofran IVP 4 mg Q6H PRN Administration Nausea/Vomiting Pantoprazole Sodium 40 mg 10/31/19 09:00 11/09/19 07:54 Protonix PO [address] [facility] Administration Ranolazine 500 mg 10/30/19 21:00 11/09/19 07:53 Ranexa PO [address] [facility] Administration Rifaximin 550 mg 11/07/19 09:00 11/09/19 07:54 Xifaxan PO 550 mg DAILY PATRICIA Administration Rosuvastatin Calcium 20 mg 10/30/19 21:00 11/08/19 19:31 Crestor PO Not Given HS PATRICIA - Exam General Appearance: awake alert Eye: PERRL, anicteric sclera ENT: no oropharyngeal lesions, moist mucosa Neck: supple, no JVD Heart: RRR, no murmur Respiratory: no wheezes, no rales Gastrointestinal: soft, normal bowel sounds, distended Extremities: no cyanosis, no edema Neurological: cranial nerve grossly intact, no focal deficits Psychiatric: A&O x 3 Hosp A/P (1) Humerus fracture Code(s): S42.309A - UNSP FRACTURE OF SHAFT OF HUMERUS, UNSP ARM, INIT Status: Acute Qualifiers: Encounter type: subsequent encounter Fracture type: closed (2) Frequent falls Code(s): R29.6 - REPEATED FALLS Status: Acute (3) Dementia Code(s): F03.90 - UNSPECIFIED DEMENTIA WITHOUT BEHAVIORAL DISTURBANCE Status: Suspected Qualifiers: Dementia type: Alzheimer's disease Dementia behavioral disturbance: without behavioral disturbance (4) DM type 2 (diabetes mellitus, type 2) Status: Chronic Qualifiers: Diabetes mellitus longterm insulin use: with long goods drier use Diabetes mellitus complication status: with hyperglycemia Qualified Code(s): E11.65 - Type 2 diabetes mellitus with hyperglycemia; Z79.4 - correction (current) use of insulin (5) Cirrhosis of liver with ascites Code(s): K74.60 - UNSPECIFIED CIRRHOSIS OF LIVER; R18.8 - OTHER ASCITES Status : Chronic Qualifiers: Hepatic cirrhosis type: unspecified hepatic cirrhosis Qualified Code(s): K74.60 - Unspecified cirrhosis of liver; R18.8 - Other ascites (6) CAD (coronary artery disease) Code(s): I25.10 - ATHSCL HEART DISEASE OF [place] CORONARY ARTERY W/O ANG PCTRS Status: Chronic Qualifiers: Coronary Disease-Associated Artery/Lesion type: bypass graft [place] vs. transplanted heart: [place] heart Associated angina: without angina Qualified Code(s): I25.810 - Atherosclerosis of coronary artery bypass graft(s) without angina pectoris (7) Physical deconditioning Code(s): R53.81 - OTHER MALAISE Status: Acute - Plan for med mgmt of b/l humerus fractures had paracentesis on admission for cirrhosis sec to KEVIN, repeat paracentesis 11/02 dm is labile continue asp, digoxin, zetia, tricor, lantus, imdur, lopressor, crestor, lactulose, rifaximin and ranexa hemostable echo showed ef of 60% may dc anytime to snf placement is ready
[2019-11-09] MEDS: HumaLOG 300 UNITS/3 ML VIAL SC PRN ×2 (12:29→16:18)
[2019-11-09] MEDS: Digoxin 0.25 MG TAB PO SCH (19:28)
[2019-11-09] MEDS: Ezetimibe 10 MG TAB PO SCH (20:15)
[2019-11-09] MEDS: Insulin Glargine 10 UNITS in Pre-Filled Syringe 1 EACH SC SCH (20:16)
[2019-11-09] MEDS: Rosuvastatin 20 MG TAB PO SCH (20:16)
[2019-11-09] MEDS: Mometasone Furoate 30 PUFF 220 MCG INH SCH (22:00)
[2019-11-10] MEDS: HumaLOG 300 UNITS/3 ML VIAL SC PRN ×4 (05:14→21:25)
[2019-11-10] MEDS: Magnesium Chloride 64 MG TAB PO SCH ×2 (08:17→21:24)
[2019-11-10] MEDS: Fenofibrate Nanocrystallized 145 MG TAB PO SCH (08:18)
[2019-11-10] MEDS: Aspirin 325 MG TAB PO SCH (08:18)
[2019-11-10] MEDS: Vit A,C & E/Lutein/Minerals Tablet PO SCH ×2 (08:18→21:24)
[2019-11-10] MEDS: Rifaximin 550 MG TAB PO SCH (08:18)
[2019-11-10] MEDS: Calcium Carbonate 600 MG + Vit D TAB PO SCH ×2 (08:18→16:17)
[2019-11-10] MEDS: Metoprolol Tartrate 25 MG TAB PO SCH ×2 (08:19→21:24)
[2019-11-10] MEDS ORDERED: Iron, Sodium Ferric Gluconate 125 MG in Sodium Chloride 0.9% 100 ML IVPB SCH (09:15)
--- NOTE | 2019-11-10 13:58 | PDOC.HOSPP ---
- Subjective Encounter Date: 11/10/19 Encounter Time: 11:00 Subjective: pt up in bed complains of pain to her right shoulder - Objective Vital Signs & Weight: Vital Signs (12 hours) Temp Pulse Resp BP BP BP Pulse Ox 11/10/19 08:25 100 11/10/19 08:21 79 120/72 11/10/19 08:01 97.6 F 75 18 78/44 L 129/86 111/72 98 Weight Admit Weight 141 lb 11.2 oz Weight 141 lb 11.2 oz I&O: 11/09/19 11/10/19 11/11/19 06:59 06:59 06:59 Intake Total 730 1000 Output Total 1200 Balance 730 -200 Result Diagrams: 11/11/19 13:29 11/11/19 13:29 Additional Labs: Accuchecks 11/10/19 11/10/19 11/09/19 11:38 04:27 19:28 POC Glucose 286 H 195 H 200 H 11/09/19 15:58 POC Glucose 370 H Hospitalist ROS - Review of Systems Gastrointestinal: denies: nausea, vomiting, abdominal pain, diarrhea, constipation, melena, hematochezia, other Genitourinary: denies: dysuria, frequency, incontinence, hematuria, retention, other - Medication Medications: Active Medications Generic Name Dose Route Start Last Admin Trade Name Nicola PRN Reason Stop Dose Admin Acetaminophen 650 mg 10/30/19 13:20 11/05/19 09:42 Tylenol PO 650 mg Q4H PRN Administration Headache/Fever/Mild Pain (1-3) Aspirin 325 mg 10/31/19 09:00 11/10/19 08:18 Aspirin PO 325 mg DAILY PATR[facility] Administration Calcium/Vitamin D 1 tab 10/31/19 17:00 11/10/19 08:18 Caltrate 600 + Vit D PO 1 tab BID-WM PATRICIA Administration Digoxin 0.25 mg 10/31/19 21:00 11/09/19 19:28 Lanoxin PO 0.25 mg HS PATRICIA Administration Ezetimibe 10 mg 10/30/19 21:00 11/09/19 20:15 Zetia PO 10 mg HS PATRICIA Administration Fenofibrate 145 mg 10/31/19 09:00 11/10/19 08:18 Tricor PO 145 mg DAILY [facility] Administration Insulin Glargine 10 units/ 0.1 mls @ 0 mls/hr 11/04/19 21:00 11/09/19 20:16 Miscellaneous Medication SC 0.1 mls QPM PATRICIA Administration Insulin Human Lispro 0 units 10/30/19 13:20 11/10/19 12:17 Humalog SC 6 unit .MODERATE SLIDING SC PRN Administration Moderate Correctional Scale Insulin Human Lispro 0 units 10/30/19 13:20 11/04/19 20:30 Humalog SC 5 unit .BEDTIME SLIDING SC PRN Administration Bedtime Correctional Scale Isosorbide Mononitrate 60 mg 10/31/19 09:00 11/10/19 08:18 Imdur PO 60 mg DAILY [facility] Administration Lactulose 10 gm 11/06/19 09:00 11/10/19 08:17 Lactulose PO 10 gm TID PATRICIA Administration Magnesium Chloride 64 mg 11/06/19 21:00 11/10/19 08:17 Slow-Mag PO 64 mg BID [facility] Administration Metoprolol Tartrate 12.5 mg 10/31/19 09:00 11/10/19 08:19 Lopressor PO 12.5 mg BID [facility] Administration Mometasone Furoate 1 puff 10/30/19 18:30 11/09/19 22:00 Asmanex INH Not Given 1830 [facility] Multivitamins/Minerals 1 tab 10/31/19 09:00 11/10/19 08:18 Ocuvite With Lutein PO 1 tab BID [facility] Administration Ondansetron HCl 4 mg 10/30/19 13:20 11/07/19 07:55 Zofran IVP 4 mg Q6H PRN Administration Nausea/Vomiting Pantoprazole Sodium 40 mg 10/31/19 09:00 11/10/19 08:18 Protonix PO 40 mg DAILY [facility] Administration Ranolazine 500 mg 10/30/19 21:00 11/10/19 08:18 Ranexa PO 500 mg BID [facility] Administration Rifaximin 550 mg 11/07/19 09:00 11/10/19 08:18 Xifaxan PO 550 mg DAILY [facility] Administration Rosuvastatin Calcium 20 mg 10/30/19 21:00 11/09/19 20:16 Crestor PO 20 mg HS PATRICIA Administration - Exam Heart: negative: RRR, no murmur, no gallops, no rubs, normal peripheral pulses, irregular, diminshed peripheral pulses, murmur present, II/IV, III/IV Respiratory: negative: CTAB, no wheezes, no rales, no ronchi, normal chest expansion, no tachypnea, normal percussion, rales, rhonchi, tachypneic, wheezes Gastrointestinal: negative: soft, non-tender, non-distended, normal bowel sounds , no palpable masses, no hepatomegaly, no splenomegaly, no bruit, no guarding, no rigidity, tender to palpation, distended, diminished bowl sounds, voluntary guarding Hosp A/P - Plan Hosp A/P (1) Humerus fracture Code(s): S42.309A - UNSP FRACTURE OF SHAFT OF HUMERUS, UNSP ARM, INIT Status: Acute Qualifiers: Encounter type: subsequent encounter Fracture type: closed (2) Frequent falls Code(s): R29.6 - REPEATED FALLS Status: Acute (3) Dementia Code(s): F03.90 - UNSPECIFIED DEMENTIA WITHOUT BEHAVIORAL DISTURBANCE Status: Suspected Qualifiers: Dementia type: Alzheimer's disease Dementia behavioral disturbance: without behavioral disturbance (4) DM type 2 (diabetes mellitus, type 2) Status: Chronic Qualifiers: Diabetes mellitus assisted insulin use: with tank terminal gauger use Diabetes mellitus complication status: with hyperglycemia Qualified Code(s): E11.65 - Type 2 diabetes mellitus with hyperglycemia; Z79.4 - nursing home (current) use of insulin (5) Cirrhosis of liver with ascites Code(s): K74.60 - UNSPECIFIED CIRRHOSIS OF LIVER; R18.8 - OTHER ASCITES Status : Chronic Qualifiers: Hepatic cirrhosis type: unspecified hepatic cirrhosis Qualified Code(s): K74.60 - Unspecified cirrhosis of liver; R18.8 - Other ascites (6) CAD (coronary artery disease) Code(s): I25.10 - ATHSCL HEART DISEASE OF [place] CORONARY ARTERY W/O ANG PCTRS Status: Chronic Qualifiers: Coronary Disease-Associated Artery/Lesion type: bypass graft [place] vs. transplanted heart: [place] heart Associated angina: without angina Qualified Code(s): I25.810 - Atherosclerosis of coronary artery bypass graft(s) without angina pectoris (7) Physical deconditioning Code(s): R53.81 - OTHER [place] Status: Acute - Plan for med mgmt of b/l humerus fractures had paracentesis on admission for cirrhosis sec to KEVIN, repeat paracentesis 11/02 dm is labile continue asp, digoxin, zetia, tricor, lantus, imdur, lopressor, crestor, lactulose, rifaximin and ranexa hemostable echo showed ef of 60% may dc anytime to snf placement is ready 11/09 awaiting placement. will start pt on diuretics.
[2019-11-10] MEDS: Acetaminophen 325 MG TAB PO PRN (21:07)
[2019-11-10] MEDS: Ezetimibe 10 MG TAB PO SCH (21:24)
[2019-11-10] MEDS: Rosuvastatin 20 MG TAB PO SCH (21:24)
[2019-11-10] MEDS: Digoxin 0.25 MG TAB PO SCH (21:24)
[2019-11-10] MEDS: Insulin Glargine 10 UNITS in Pre-Filled Syringe 1 EACH SC SCH (21:24)
[2019-11-11] MEDS ORDERED: Ferrous Gluconate 324 MG TAB PO SCH (08:00)
[2019-11-11] MEDS: Aspirin 325 MG TAB PO SCH (08:59)
[2019-11-11] MEDS: Rifaximin 550 MG TAB PO SCH (08:59)
[2019-11-11] MEDS: Magnesium Chloride 64 MG TAB PO SCH ×2 (08:59→20:35)
[2019-11-11] MEDS: Vit A,C & E/Lutein/Minerals Tablet PO SCH ×2 (08:59→20:35)
[2019-11-11] MEDS: Calcium Carbonate 600 MG + Vit D TAB PO SCH ×2 (08:59→17:31)
[2019-11-11] MEDS: Fenofibrate Nanocrystallized 145 MG TAB PO SCH (08:59)
[2019-11-11] MEDS: Metoprolol Tartrate 25 MG TAB PO SCH ×2 (09:00→20:35)
[2019-11-11] MEDS: HumaLOG 300 UNITS/3 ML VIAL SC PRN ×3 (12:38→20:46)
[2019-11-11 13:54] LABS: Prothrombin Time 13.4 sec (12.0-14.7)
[2019-11-11 14:06] LABS: ALT (SGPT) 10 U/L (8-55); AST (SGOT) 24 U/L (5-34); Albumin 2.9 g/dL (3.4-4.8); Alkaline Phosphatase 232 U/L (40-110); Anion Gap 15 mmol/L (10-20); BUN (Urea Nitrogen) 19 mg/dL (9.8-20.1); Bilirubin, Total 0.6 mg/dL (0.2-1.2); Calc. Creatinine Clearance 54 mL/min (70-130); Calcium 9.2 mg/dL (7.8-10.44); Carbon Dioxide 27 mmol/L (23-31); Chloride 94 mmol/L (98-107); Estimated GFR-MDRD 67; Globulin 3.9 g/dL (2.4-3.5); Glucose 127 mg/dL (83-110); Potassium 5.4 mmol/L (3.5-5.1); Protein, Total 6.8 g/dL (6.0-8.3); Sodium 131 mmol/L (136-145)
[2019-11-11 14:25] LABS: #Eosinphils 0.1 thou/uL (0.0-0.7); #Lymphocytes 0.8 thou/uL (1.20-3.40); #Monocytes 0.6 thou/uL (0.11-0.59); #Neutrophils 6.5 thou/uL (1.40-6.50); %Basophils 0.1 % (0.0-1.0); %Eosinophils 1.3 % (0.0-10.0); %Lymphocytes 10.3 % (21.0-51.0); %Monocytes 7.7 % (0.0-10.0); %Neutrophils 80.6 % (42.0-75.0); Hemoglobin 10.2 g/dL (12.0-16.0); Hypochromia SLIGHT = 6-15 cells (100X) (0-5/hpf); MDiff Complete? YES; Mean Corpuscular HGB CONC 29.7 g/dL (32.0-36.0); Mean Corpuscular Hemoglobin 22.6 pg (27.0-31.0); Mean Platelet Volume 7.5 fL (7.4-10.4); Microcytosis SLIGHT = 6-15 cells (100X) (0-5/hpf); Platelet Count 344 thou/uL (130-400); Platelet Morphology Comment Appears Adequate; Polychromasia SLIGHT = 2-3 cells (100X) (0-2/hpf); Red Blood Cell (RBC) Count 4.51 mill/uL (4.20-5.40)
--- NOTE | 2019-11-11 14:49 | PDOC.HOSPP ---
- Subjective Encounter Date: 11/11/19 Encounter Time: 10:30 Subjective: pt up in bed no complains. - Objective Vital Signs & Weight: Vital Signs (12 hours) Temp Pulse Resp BP BP BP Pulse Ox 11/11/19 12:27 97.6 F 81 16 108/55 L 113/57 L 103/53 L 99 11/11/19 07:56 97.5 F L 66 16 109/65 99 Weight Admit Weight 141 lb 11.2 oz Weight 141 lb 11.2 oz I&O: 11/10/19 11/11/19 11/12/19 06:59 06:59 06:59 Intake Total 1000 960 Output Total 1200 Balance -200 960 Result Diagrams: 11/11/19 13:29 11/11/19 13:29 Additional Labs: Accuchecks 11/11/19 11/11/19 11/10/19 12:02 05:33 20:18 POC Glucose 162 H 85 274 H 11/10/19 16:11 POC Glucose 363 H Hospitalist ROS - Review of Systems Respiratory: denies: cough, dry, shortness of breath, hemoptysis, SOB with excertion, pleuritic pain, sputum, wheezing, other Cardiovascular: denies: chest pain, palpitations, orthopnea, paroxysmal noc. dyspnea, edema, light headedness, other Gastrointestinal: denies: nausea, vomiting, abdominal pain, diarrhea, constipation, melena, hematochezia, other - Medication Medications: Active Medications Generic Name Dose Route Start Last Admin Trade Name Freq PRN Reason Stop Dose Admin Acetaminophen 650 mg 10/30/19 13:20 11/10/19 21:07 Tylenol PO 650 mg Q4H PRN Administration Headache/Fever/Mild Pain (1-3) Aspirin 325 mg 10/31/19 09:00 11/11/19 08:59 Aspirin PO 325 mg DAILY PATRICIA Administration Calcium/Vitamin D 1 tab 10/31/19 17:00 11/11/19 08:59 Caltrate 600 + Vit D PO 1 tab BID-WM PATRICIA Administration Digoxin 0.25 mg 10/31/19 21:00 11/10/19 21:24 Lanoxin PO 0.25 mg HS PATRICIA Administration Ezetimibe 10 mg 10/30/19 21:00 11/10/19 21:24 Zetia PO 10 mg HS PATRICIA Administration Fenofibrate 145 mg 10/31/19 09:00 11/11/19 08:59 Tricor PO 145 mg DAILY PATRICIA Administration Ferrous Gluconate 324 mg 11/11/19 08:00 11/11/19 08:59 Fergon PO 324 mg QAM-WM PATRICIA Administration Insulin Glargine 10 units/ 0.1 mls @ 0 mls/hr 11/04/19 21:00 11/10/19 21:24 Miscellaneous Medication SC 0.1 mls QPM PATRICIA Administration Insulin Human Lispro 0 units 10/30/19 13:20 11/11/19 12:38 Humalog SC 2 unit .MODERATE SLIDING SC PRN Administration Moderate Correctional Scale Insulin Human Lispro 0 units 10/30/19 13:20 11/10/19 21:25 Humalog SC 3 unit .BEDTIME SLIDING SC PRN Administration Bedtime Correctional Scale Isosorbide Mononitrate 60 mg 10/31/19 09:00 11/11/19 08:59 Imdur PO 60 mg DAILY [facility] Administration Lactulose 10 gm 11/06/19 09:00 11/11/19 14:10 Lactulose PO 10 gm TID [facility] Administration Magnesium Chloride 64 mg 11/06/19 21:00 11/11/19 08:59 Slow-Mag PO 64 mg BID [facility] Administration Metoprolol Tartrate 12.5 mg 10/31/19 09:00 11/11/19 09:00 Lopressor PO Not Given BID [facility] Mometasone Furoate 1 puff 10/30/19 18:30 11/09/19 22:00 Asmanex INH Not Given 1830 [facility] Multivitamins/Minerals 1 tab 10/31/19 09:00 11/11/19 08:59 Ocuvite With Lutein PO 1 tab BID [facility] Administration Ondansetron HCl 4 mg 10/30/19 13:20 11/07/19 07:55 Zofran IVP 4 mg Q6H PRN Administration Nausea/Vomiting Pantoprazole Sodium 40 mg 10/31/19 09:00 11/11/19 08:59 Protonix PO 40 mg DAILY [facility] Administration Ranolazine 500 mg 10/30/19 21:00 11/11/19 08:59 Ranexa PO 500 mg BID [facility] Administration Rifaximin 550 mg 11/07/19 09:00 05/13/20 08:59 Xifaxan PO 550 mg DAILY PATRICIA Administration Rosuvastatin Calcium 20 mg 10/30/19 21:00 11/10/19 21:24 Crestor PO 20 mg HS PATRICIA Administration - Exam Neck: negative: supple, symmetric, no JVD, no thyromegaly, no lymphadenopathy, no carotid bruit, JVD Heart: negative: RRR, no murmur, no gallops, no rubs, normal peripheral pulses, irregular, diminshed peripheral pulses, murmur present, II/IV, III/IV Respiratory: negative: CTAB, no wheezes, no rales, no ronchi, normal chest expansion, no tachypnea, normal percussion, rales, rhonchi, tachypneic, wheezes Gastrointestinal: negative: soft, non-tender, non-distended, normal bowel sounds , no palpable masses, no hepatomegaly, no splenomegaly, no bruit, no guarding, no rigidity, tender to palpation, distended, diminished bowl sounds, voluntary guarding Hosp A/P - Plan Hosp A/P (1) Humerus fracture Code(s): S42.309A - UNSP FRACTURE OF SHAFT OF HUMERUS, UNSP ARM, INIT Status: Acute Qualifiers: Encounter type: subsequent encounter Fracture type: closed (2) Frequent falls Code(s): R29.6 - REPEATED FALLS Status: Acute (3) Dementia Code(s): F03.90 - UNSPECIFIED DEMENTIA WITHOUT BEHAVIORAL DISTURBANCE Status: Suspected Qualifiers: Dementia type: Alzheimer's disease Dementia behavioral disturbance: without behavioral disturbance (4) DM type 2 (diabetes mellitus, type 2) Status: Chronic Qualifiers: Diabetes mellitus [facility] insulin use: with [facility] use Diabetes mellitus complication status: with hyperglycemia Qualified Code(s): E11.65 - Type 2 diabetes mellitus with hyperglycemia; Z79.4 - assistant terminal manager (current) use of insulin (5) Cirrhosis of liver with ascites Code(s): K74.60 - UNSPECIFIED CIRRHOSIS OF LIVER; R18.8 - OTHER ASCITES Status : Chronic Qualifiers: Hepatic cirrhosis type: unspecified hepatic cirrhosis Qualified Code(s): K74.60 - Unspecified cirrhosis of liver; R18.8 - Other ascites (6) CAD (coronary artery disease) Code(s): I25.10 - ATHSCL HEART DISEASE OF [place] CORONARY ARTERY W/O ANG PCTRS Status: Chronic Qualifiers: Coronary Disease-Associated Artery/Lesion type: bypass graft [place] vs. transplanted heart: [place] heart Associated angina: without angina Qualified Code(s): I25.810 - Atherosclerosis of coronary artery bypass graft(s) without angina pectoris (7) Physical deconditioning Code(s): R53.81 - OTHER MALAISE Status: Acute - Plan for med mgmt of b/l humerus fractures had paracentesis on admission for cirrhosis sec to [facility], repeat paracentesis 11/02 dm is labile continue asp, digoxin, zetia, tricor, lantus, imdur, lopressor, crestor, lactulose, rifaximin and ranexa hemostable echo showed ef of 60% may dc anytime to snf placement is ready 11/09 awaiting placement. will start pt on diuretics. 11/10 awaiting placement. case management hopeful for placement today.
[2019-11-11] MEDS: Rosuvastatin 20 MG TAB PO SCH (20:34)
[2019-11-11] MEDS: Insulin Glargine 10 UNITS in Pre-Filled Syringe 1 EACH SC SCH (20:34)
[2019-11-11] MEDS: Ezetimibe 10 MG TAB PO SCH (20:34)
[2019-11-11] MEDS: Digoxin 0.25 MG TAB PO SCH (20:34)
[2019-11-12] MEDS ORDERED: Furosemide 40 MG TAB PO SCH (07:30)
[2019-11-12] MEDS ORDERED: Spironolactone 25 MG TAB PO SCH (08:00)
[2019-11-12] MEDS: Magnesium Chloride 64 MG TAB PO SCH (09:10)
[2019-11-12] MEDS: Vit A,C & E/Lutein/Minerals Tablet PO SCH (09:13)
[2019-11-12] MEDS: Fenofibrate Nanocrystallized 145 MG TAB PO SCH (09:13)
[2019-11-12] MEDS: Rifaximin 550 MG TAB PO SCH (09:14)
[2019-11-12] MEDS: Calcium Carbonate 600 MG + Vit D TAB PO SCH (09:14)
[2019-11-12] MEDS ORDERED: Sodium Bicarbonate 2.5 MEQ/5 ML VIAL ONE (09:29)
--- NOTE | 2019-11-12 11:45 | ULT ---
Ultrasound-guided paracentesis: HISTORY: Symptomatic ascites FINDINGS: Informed consent obtained prior to the procedure. Preprocedural imaging demonstrated intrap eritoneal free fluid. An area was marked in the Right lower quadrant , and then meticulously prepped and draped in normal s terile fashion and anesthetized with 1% buffered lidocaine. With direct sonographic guidance, a 19-gauge needle and 5 Bel[place]ian Kinooseh catheter were advanced into the abdomen. After the return of fluid, the catheter was advanced, and the needle was removed. Approximately 6 L of clear straw-colored fluid was aspirated. The introducer sheath was removed, and hemostasis was achieved with direct pressure. A dry sterile dressing was placed. The patient tolerated the procedure well and without immediate complication. IMPRESSION: Technically successful ultrasound-guided paracentesis.
[2019-11-12 12:53] VITALS: BP 113/66; TEMP 97.6
--- NOTE | 2019-11-12 14:14 | PDOC.HOSPP ---
- Subjective Encounter Date: 11/12/19 Encounter Time: 07:40 Subjective: says her abd is slowly getting distended, no pain or sob - Objective Vital Signs & Weight: Vital Signs (12 hours) Temp Pulse Resp BP Pulse Ox 11/12/19 12:52 97.6 F 90 17 113/66 100 Weight Admit Weight 141 lb 11.2 oz Weight 141 lb 11.2 oz I&O: 11/11/19 11/12/19 11/13/19 06:59 06:59 06:59 Intake Total 960 1410 Balance 960 1410 Result Diagrams: 11/11/19 13:29 11/11/19 13:29 Additional Labs: Accuchecks 11/12/19 11/12/19 11/11/19 12:53 04:38 19:56 POC Glucose 123 H 93 302 H 11/11/19 17:22 POC Glucose 207 H Hospitalist ROS - Medication Medications: Active Medications Generic Name Dose Route Start Last Admin Trade Name Freq PRN Reason Stop Dose Admin Acetaminophen 650 mg 10/30/19 13:20 11/10/19 21:07 Tylenol PO 650 mg Q4H PRN Administration Headache/Fever/Mild Pain (1-3) Aspirin 325 mg 10/31/19 09:00 11/11/19 08:59 Aspirin PO 325 mg DAILY PATRICIA Administration Calcium/Vitamin D 1 tab 10/31/19 17:00 11/12/19 09:14 Caltrate 600 + Vit D PO 1 tab BID-WM PATRICIA Administration Digoxin 0.25 mg 10/31/19 21:00 11/11/19 20:34 Lanoxin PO 0.25 mg HS PATRICIA Administration Ezetimibe 10 mg 10/30/19 21:00 11/11/19 20:34 Zetia PO 10 mg HS PATRICIA Administration Fenofibrate 145 mg 10/31/19 09:00 11/12/19 09:13 Tricor PO 145 mg DAILY PATRICIA Administration Ferrous Gluconate 324 mg 11/11/19 08:00 11/11/19 08:59 Fergon PO 324 mg QAM-WM PATRICIA Administration Furosemide 40 mg 11/12/19 07:30 11/12/19 09:14 Lasix PO 40 mg DAILY-AC PATRICIA Administration Insulin Glargine 10 units/ 0.1 mls @ 0 mls/hr 11/04/19 21:00 11/11/19 20:34 Miscellaneous Medication SC 0.1 mls QPM PATRICIA Administration Insulin Human Lispro 0 units 10/30/19 13:20 11/11/19 17:32 Humalog SC 4 unit .MODERATE SLIDING SC PRN Administration Moderate Correctional Scale Insulin Human Lispro 0 units 10/30/19 13:20 11/11/19 20:46 Humalog SC 4 unit .BEDTIME SLIDING SC PRN Administration Bedtime Correctional Scale Isosorbide Mononitrate 60 mg 10/31/19 09:00 11/11/19 08:59 Imdur PO 60 mg DAILY PATRICIA Administration Lactulose 10 gm 11/06/19 09:00 11/12/19 09:11 Lactulose PO 10 gm TID PATRICIA Administration Magnesium Chloride 64 mg 11/06/19 21:00 11/12/19 09:10 Slow-Mag PO 64 mg BID PATRICIA Administration Metoprolol Tartrate 12.5 mg 10/31/19 09:00 11/11/19 20:35 Lopressor PO 12.5 mg BID PATRICIA Administration Mometasone Furoate 1 puff 10/30/19 18:30 11/09/19 22:00 Asmanex INH Not Given 1830 [facility] Multivitamins/Minerals 1 tab 10/31/19 09:00 11/12/19 09:13 Ocuvite With Lutein PO 1 tab BID [facility] Administration Ondansetron HCl 4 mg 10/30/19 13:20 11/07/19 07:55 Zofran IVP 4 mg Q6H PRN Administration Nausea/Vomiting Pantoprazole Sodium 40 mg 10/31/19 09:00 11/12/19 09:14 Protonix PO 40 mg DAILY PATRICIA Administration Ranolazine 500 mg 10/30/19 21:00 11/11/19 20:35 Ranexa PO 500 mg BID PATRICIA Administration Rifaximin 550 mg 11/07/19 09:00 11/12/19 09:14 Xifaxan PO 550 mg DAILY PATRICIA Administration Rosuvastatin Calcium 20 mg 10/30/19 21:00 11/11/19 20:34 Crestor PO 20 mg HS PATRICIA Administration Spironolactone 12.5 mg 11/12/19 08:00 11/12/19 09:12 Aldactone PO 12.5 mg QAM-WM [facility] Administration - Exam General Appearance: awake alert Eye: PERRL, anicteric sclera ENT: no oropharyngeal lesions, moist mucosa Neck: supple, no JVD Heart: RRR, no murmur Respiratory: no wheezes, no rales Gastrointestinal: soft, normal bowel sounds, no guarding, no rigidity, distended Extremities: no cyanosis, no edema Neurological: cranial nerve grossly intact, no focal deficits Psychiatric: A&O x 3 Hosp A/P (1) Humerus fracture Code(s): S42.309A - UNSP FRACTURE OF SHAFT OF HUMERUS, UNSP ARM, INIT Status: Acute Qualifiers: Encounter type: subsequent encounter Fracture type: closed (2) Frequent falls Code(s): R29.6 - REPEATED FALLS Status: Acute (3) Dementia Code(s): F03.90 - UNSPECIFIED DEMENTIA WITHOUT BEHAVIORAL DISTURBANCE Status: Suspected Qualifiers: Dementia type: Alzheimer's disease Dementia behavioral disturbance: without behavioral disturbance (4) DM type 2 (diabetes mellitus, type 2) Status: Chronic Qualifiers: Diabetes mellitus care home insulin use: with intermediate project manager use Diabetes mellitus complication status: with hyperglycemia Qualified Code(s): E11.65 - Type 2 diabetes mellitus with hyperglycemia; Z79.4 - [facility] (current) use of insulin (5) Cirrhosis of liver with ascites Code(s): K74.60 - UNSPECIFIED CIRRHOSIS OF LIVER; R18.8 - OTHER ASCITES Status : Chronic Qualifiers: Hepatic cirrhosis type: unspecified hepatic cirrhosis Qualified Code(s): K74.60 - Unspecified cirrhosis of liver; R18.8 - Other ascites (6) CAD (coronary artery disease) Code(s): I25.10 - ATHSCL HEART DISEASE OF [place] CORONARY ARTERY W/O ANG PCTRS Status: Chronic Qualifiers: Coronary Disease-Associated Artery/Lesion type: bypass graft [place] vs. transplanted heart: ute heart Associated angina: without angina Qualified Code(s): I25.810 - Atherosclerosis of coronary artery bypass graft(s) without angina pectoris (7) Physical deconditioning Code(s): R53.81 - OTHER MALAISE Status: Acute - Plan for med mgmt of b/l humerus fractures had paracentesis on admission for cirrhosis sec to [facility], repeat paracentesis 11/02, 11/12/2019 (6lts) dm is labile continue asp, digoxin, zetia, tricor, lantus, imdur, lopressor, crestor, lactulose, rifaximin and ranexa hemostable echo showed ef of 60% may dc anytime to [facility] after paracentesis if her BP remains above 90 systolic after 2 hrs
--- NOTE | 2019-11-12 15:47 | EKG ---
Test Reason : Blood Pressure : / mmHG Vent. Rate : 081 BPM Atrial Rate : 081 BPM P-R Int : 164 ms QRS Dur : 122 ms QT Int : 402 ms P-R-T Axes : 094 009 036 degrees QTc Int : 466 ms Normal sinus rhythm Right bundle branch block Inferior infarct , age undetermined Anterior infarct , age undetermined Abnormal ECG Confirmed by JANIS SALAS DO ([id number]), news videotape editor ELLA HEADLEY ([id number]) on 11/12/2019 3:47:26 PM Referred By: Confirmed By:JANIS SALAS DO
--- NOTE | 2019-11-13 03:35 | DIS ---
DATE OF ADMISSION: 10/30/2019 DATE OF DISCHARGE: 11/12/2019 DISCHARGE DISPOSITION: [facility]. PRIMARY DISCHARGE DIAGNOSES: Bilateral humerus fractures for medical management , recurrent falls with deconditioning, intractable ascites with history of cirrhosis due to nonalcoholic steatohepatitis, paracentesis x3 during her stay here, diabetes mellitus type 2, coronary artery disease, deconditioning, dementia. PROCEDURES DONE DURING HOSPITALIZATION: Left humerus 2-view standard plain x- ray done showed proximal humerus fracture with callus formation, likely subacute. Right humerus 3-view x-ray done showed mildly displaced spiral fracture of right proximal humerus. CT brain without contrast done showed no acute findings. CT cervical spine without contrast showed degenerative changes of the C-spine with no fracture or traumatic subluxation. Echo with 2D Doppler showed ejection fraction of 60% to 65%, grade 1/3 diastolic dysfunction, bioprosthetic aortic valve with normal functioning. Bilateral lower extremity venous Doppler done showed no evidence of DVT. The patient has had paracentesis done on 10/30/2019, second paracentesis on 11/03/2019, third paracentesis on 11/12/2019, all by Interventional Radiology. Hemoglobin and hematocrit 10 and 34, platelet count 344, MCV is 76, white count of 8. PT/INR and PTT within normal limits. Discharge BUN and creatinine of 19 and 0.8. Total bilirubin 0.6, AST 24, ALT 10, alkaline phosphatase 232, albumin 2.9. Cosyntropin stimulation test was normal. Ascitic body fluid showed a white count of 399 with 205 rbc's, 61% neutrophils. This was on 11/03/2019. DISCHARGE MEDICATIONS: 1. Pulmicort inhaler daily. 2. Digoxin 0.25 mg p.o. at bedtime. 3. Zetia 10 mg p.o. at bedtime. 4. Fenofibric acid 135 mg p.o. daily. 5. Metoprolol tartrate 12.5 mg twice daily. 6. Omeprazole 20 mg daily. 7. Ranexa 500 mg twice daily. 8. Rifaximin 550 mg daily. 9. Crestor 20 mg at bedtime. 10. Ferrous sulfate 325 mg p.o. daily. 11. Lasix 20 mg at 9 a.m. and 2 p.m. 12. Lantus 10 units subcu twice daily. 13. Lactulose 20 g p.o. 3 times daily. ALLERGIES: ASPIRIN; ATORVASTATIN, BUT SHE IS TOLERATING CRESTOR; EXENATIDE; IODINE; PHENOL, LYRICA, SHELLFISH, SIMVASTATIN, SOY, SULFA, THEOPHYLLINE, W[place]UT. INPATIENT CONSULT: Dr. Oliveira for Gastroenterology. DISCHARGE PLAN: The patient is being discharged to [facility]. She needs to follow up with her primary care physician, Dr. David Monroy in 1 week, Dr. Marylin Mason, her guide foreign tour in 2 weeks, Dr. Yepez in 2 to 3 weeks. BRIEF COURSE DURING HOSPITALIZATION: The patient initially got admitted on the after having multiple falls at home with dizziness. She was found to have bilateral humerus fractures. The patient fractured her left humerus in July and right humerus on current hospitalization. She also has significant history of cirrhosis due to [facility] and paracentesis being done. The patient had acute metabolic encephalopathy on arrival, which resolved at the time of discharge. She has had nearly 3 paracenteses done during her stay here. Likely, the patient will require paracenteses every [facility]. Her medications were optimized given her vital signs. Her overall prognosis is guarded. In view of deconditioning, the patient is being discharged to [facility] for further recuperation. Please see a [id number] documentation for the day of discharge on [employer]. A total of 35 minutes was spent on discharge plan. Job ID: [id number] MTDD
== END 2019-11-12 14:32 | DRG 562 ==
LOC: ERS 09:03 → T4-B 15:52
PROVIDERS: ADMIT Internal Medicine; ATTEND Internal Medicine
PROC: 0W9G3ZZ Drainage of Peritoneal Cavity, Percutaneous Approach (ICD-10-PCS; principal; 2019-10-30)
PROC: 0W9G3ZZ Drainage of Peritoneal Cavity, Percutaneous Approach (ICD-10-PCS; 2019-11-03)
PROC: 0W9G3ZZ Drainage of Peritoneal Cavity, Percutaneous Approach (ICD-10-PCS; 2019-11-12)
DX: S42.341A Displaced spiral fracture of shaft of humerus, right arm, initial encounter for closed fracture (principal); G93.41 Metabolic encephalopathy; S42.292A Other displaced fracture of upper end of left humerus, initial encounter for closed fracture; R18.8 Other ascites; E87.1 Hypo-osmolality and hyponatremia; I25.810 Atherosclerosis of coronary artery bypass graft(s) without angina pectoris; W19.XXXA Unspecified fall, initial encounter; I48.0 Paroxysmal atrial fibrillation; K74.60 Unspecified cirrhosis of liver; K75.81 Nonalcoholic steatohepatitis (NASH); D53.9 Nutritional anemia, unspecified; R29.6 Repeated falls; G30.9 Alzheimer's disease, unspecified; F02.80 Dementia in other diseases classified elsewhere, unspecified severity, without behavioral disturbance, psychotic disturbance, mood disturbance, and anxiety; R53.81 Other malaise; E11.649 Type 2 diabetes mellitus with hypoglycemia without coma; Z95.1 Presence of aortocoronary bypass graft; Z95.0 Presence of cardiac pacemaker; Z89.422 Acquired absence of other left toe(s); Z90.49 Acquired absence of other specified parts of digestive tract; Z79.82 Long term (current) use of aspirin; Z79.4 Long term (current) use of insulin; Z95.2 Presence of prosthetic heart valve; Z88.1 Allergy status to other antibiotic agents; Z88.8 Allergy status to other drugs, medicaments and biological substances; Z91.041 Radiographic dye allergy status
CPT/HCPCS: 36415; 36416; 49083; 70450; 71045; 72125; 80048; 80053; 80069; 80162; 80400; 82140; 82553; 82607; 82728; 82746; 83540; 83550; 83735; 83880; 84484; 85025; 85060; 85610; 85730; 89051; 93005; 93306; 93970; G0390; J0696; J0834; J1650; J1815; J2001; J2270; J2405; J2916; J3490; L3980

== ENCOUNTER 2019-12-14 11:06 | Day surgery (SDC) | payer MEDICARE, MEDICAID ==
[2019-12-11 16:00] VITALS: BMI 23.1
[2019-12-14] MEDS ORDERED: Lidocaine 1% PF 5 ML VIAL ONE (11:48)
[2019-12-14] MEDS ORDERED: Sodium Bicarbonate 2.5 MEQ/5 ML VIAL ONE (11:48)
[2019-12-14 11:51] LABS: #Eosinphils 0.1 thou/uL (0.0-0.7); #Lymphocytes 0.8 thou/uL (1.20-3.40); #Monocytes 0.5 thou/uL (0.11-0.59); #Neutrophils 5.4 thou/uL (1.40-6.50); %Basophils 0.6 % (0.0-1.0); %Eosinophils 1.2 % (0.0-10.0); %Lymphocytes 11.7 % (21.0-51.0); %Monocytes 7.3 % (0.0-10.0); %Neutrophils 79.2 % (42.0-75.0); Hemoglobin 10.8 g/dL (12.0-16.0); Mean Corpuscular HGB CONC 30.9 g/dL (32.0-36.0); Mean Corpuscular Hemoglobin 23.6 pg (27.0-31.0); Mean Corpuscular Volume 76.4 fL (78.0-98.0); Mean Platelet Volume 6.5 fL (7.4-10.4); Platelet Count 346 thou/uL (130-400); Red Blood Cell (RBC) Count 4.57 mill/uL (4.20-5.40); White Blood Cell (WBC) Count 6.9 thou/uL (4.8-10.8)
[2019-12-14 11:58] LABS: INR-International Normal Ratio 1.1; Prothrombin Time 14.4 sec (12.0-14.7)
[2019-12-14 13:22] VITALS: BP 115/72; TEMP 98
--- NOTE | 2019-12-14 13:29 | ULT ---
Exam: Ultrasound guided paracentesis HISTORY: Ascites COMPARISON: Prior exam dated November 12, 2019 FINDINGS: Successful ultrasound-guided paracentesis. Total of 8 L of normal appearingascites was aspi rated. TECHNIQUE: Consent obtained reformatory ultrasound-guided paracentesis. Right lower quadrant was deem ed appropriate. Skin was prepped and draped in a sterile fashion. 1% lidocaine, buffered with sodium bicarbonate was used for local anesthesia. Under ultrasound guidance, a 5 Jordanian 7 cm Yueh cat heter is advanced in the peritoneal space. A total of 8 L of normal appearingascites was aspirated. No immediate or postprocedural complications IMPRESSION: Successful ultrasound-guided paracentesis.
== END 2019-12-14 13:10 ==
LOC: ULT 11:06
PROVIDERS: ATTEND Family Medicine
PROC: 0W9G3ZZ Drainage of Peritoneal Cavity, Percutaneous Approach (ICD-10-PCS; principal; 2019-12-14)
DX: K74.60 Unspecified cirrhosis of liver (principal); R18.8 Other ascites; I12.9 Hypertensive chronic kidney disease with stage 1 through stage 4 chronic kidney disease, or unspecified chronic kidney disease; E11.22 Type 2 diabetes mellitus with diabetic chronic kidney disease; N18.9 Chronic kidney disease, unspecified; J45.909 Unspecified asthma, uncomplicated; E78.5 Hyperlipidemia, unspecified; Z79.4 Long term (current) use of insulin; Z79.82 Long term (current) use of aspirin; Z79.899 Other long term (current) drug therapy; Z88.2 Allergy status to sulfonamides; Z88.8 Allergy status to other drugs, medicaments and biological substances; Z91.013 Allergy to seafood; Z91.018 Allergy to other foods; Z91.041 Radiographic dye allergy status; Z95.0 Presence of cardiac pacemaker; Z95.1 Presence of aortocoronary bypass graft
CPT/HCPCS: 49083; 85025; 85610; 85730; J2001

== ENCOUNTER → 2019-12-25 | Day surgery (SDC) | payer MEDICARE, MEDICAID ==
--- NOTE | 2019-12-25 13:59 | ULT ---
Exam: Ultrasound guided paracentesis HISTORY: Ascites COMPARISON: 12/14/2019 FINDINGS: Successful ultrasound-guided paracentesis. Total of 9600 mL of yellow ascites was aspirated . TECHNIQUE: Consent obtained reformatory ultrasound-guided paracentesis. Right lower quadrant was deem ed appropriate. Skin was prepped and draped in a sterile fashion. 1% lidocaine, buffered with sodium bicarbonate was used for local anesthesia. Under ultrasound guidance, a 5 Irish 7 cm Yueh cat heter is advanced in the peritoneal space. A total of 9600 mL of yellow ascites was aspirated. No immediate or postprocedural complications IMPRESSION: Successful ultrasound-guided paracentesis.
== END | disposition home or self-care (01) ==
LOC: ULT 11:53
PROVIDERS: ATTEND Family Medicine
PROC: 0W9G3ZZ Drainage of Peritoneal Cavity, Percutaneous Approach (ICD-10-PCS; principal; 2019-12-25)
DX: K74.60 Unspecified cirrhosis of liver (principal); R18.8 Other ascites; I12.9 Hypertensive chronic kidney disease with stage 1 through stage 4 chronic kidney disease, or unspecified chronic kidney disease; E11.22 Type 2 diabetes mellitus with diabetic chronic kidney disease; N18.3 Chronic kidney disease, stage 3 (moderate); D63.1 Anemia in chronic kidney disease; G89.29 Other chronic pain; E78.5 Hyperlipidemia, unspecified; I25.10 Atherosclerotic heart disease of native coronary artery without angina pectoris; E11.51 Type 2 diabetes mellitus with diabetic peripheral angiopathy without gangrene; J45.40 Moderate persistent asthma, uncomplicated; F41.8 Other specified anxiety disorders; E11.40 Type 2 diabetes mellitus with diabetic neuropathy, unspecified; F03.90 Unspecified dementia, unspecified severity, without behavioral disturbance, psychotic disturbance, mood disturbance, and anxiety; Z79.4 Long term (current) use of insulin; Z79.82 Long term (current) use of aspirin; Z79.899 Other long term (current) drug therapy; Z88.1 Allergy status to other antibiotic agents; Z88.2 Allergy status to sulfonamides; Z88.8 Allergy status to other drugs, medicaments and biological substances; Z91.013 Allergy to seafood; Z91.018 Allergy to other foods; Z91.041 Radiographic dye allergy status; Z95.0 Presence of cardiac pacemaker; Z95.1 Presence of aortocoronary bypass graft; Z95.2 Presence of prosthetic heart valve
CPT/HCPCS: 49083

== ENCOUNTER 2019-12-29 16:47 | Emergency (ER) | payer MEDICARE, MEDICAID ==
[2019-12-29 17:38] LABS: #Eosinphils 0.1 thou/uL (0.0-0.7); #Lymphocytes 0.7 thou/uL (1.20-3.40); #Monocytes 0.6 thou/uL (0.11-0.59); #Neutrophils 5.2 thou/uL (1.40-6.50); %Basophils 0.4 % (0.0-1.0); %Eosinophils 1.9 % (0.0-10.0); %Lymphocytes 10.3 % (21.0-51.0); %Monocytes 8.6 % (0.0-10.0); %Neutrophils 78.8 % (42.0-75.0); Hemoglobin 10.4 g/dL (12.0-16.0); Mean Corpuscular HGB CONC 30.2 g/dL (32.0-36.0); Mean Corpuscular Hemoglobin 22.8 pg (27.0-31.0); Mean Corpuscular Volume 75.5 fL (78.0-98.0); Mean Platelet Volume 7.1 fL (7.4-10.4); Platelet Count 335 thou/uL (130-400); RBC Distribution Width 16.8 % (11.5-14.5); Red Blood Cell (RBC) Count 4.55 mill/uL (4.20-5.40); White Blood Cell (WBC) Count 6.6 thou/uL (4.8-10.8)
[2019-12-29 17:57] LABS: ALT (SGPT) 14 U/L (8-55); AST (SGOT) 16 U/L (5-34); Acetaminophen Less than 6.0 mcg/mL (10.0-30.0); Albumin 2.7 g/dL (3.4-4.8); Alcohol Less than 10 mg/dL (Less than 10); Alkaline Phosphatase 165 U/L (40-110); Anion Gap 13 mmol/L (10-20); BUN (Urea Nitrogen) 30 mg/dL (9.8-20.1); Bilirubin, Total 0.5 mg/dL (0.2-1.2); Calc. Creatinine Clearance 0 mL/min (70-130); Calcium 8.7 mg/dL (7.8-10.44); Carbon Dioxide 24 mmol/L (23-31); Chloride 98 mmol/L (98-107); Estimated GFR-MDRD 60; Globulin 3.7 g/dL (2.4-3.5); Glucose 180 mg/dL (83-110); Protein, Total 6.4 g/dL (6.0-8.3); Salicylate Less than 8.0 mg/dL (15.0-30.0); Sodium 130 mmol/L (136-145)
[2019-12-29 18:33] LABS: Bilirubin Negative (Negative); Blood, Urine Negative (Negative); Clarity Clear (Clear); Glucose, Urine (Dipstick) Normal (Negative); Leukocyte Negative Leu/uL (Negative); Nitrite Negative (Negative); Protein, Urine (Dipstick) Negative (Neg-Trace); Urobilinogen Normal mg/dL (Less than 2)
[2019-12-29 18:54] LABS: Amphetamine Not Detected (NotDetected); Barbiturates Screen Not Detected (NotDetected); Benzodiazepine Screen Detected (NotDetected); Cocaine Metabolite Screen Not Detected (NotDetected); Medtox Control Line Valid? VALID (VALID); Medtox Reader # READER 1; Methadone Not Detected (NotDetected); Methamphetamine Not Detected (NotDetected); Opiate Screen Detected (NotDetected); Oxycodone Screen Not Detected (NotDetected); Phencyclidine (PCP) Not Detected (NotDetected); THC/Cannabinoid Screen Not Detected (NotDetected); Tricyclic Screen Not Detected (NotDetected)
[2019-12-29] MEDS ORDERED: Bacitracin 1 PK ONE (21:05)
== END 2019-12-29 22:19 ==
LOC: ERS 16:47
DX: F32.9 Major depressive disorder, single episode, unspecified (principal); K74.60 Unspecified cirrhosis of liver; E11.9 Type 2 diabetes mellitus without complications; J45.909 Unspecified asthma, uncomplicated; Z79.4 Long term (current) use of insulin; Z79.899 Other long term (current) drug therapy
CPT/HCPCS: 36415; 51701; 80053; 80306; 80307; 81003; 84443; 85025

== ENCOUNTER → 2020-03-17 | Day surgery (SDC) | payer MEDICARE, MEDICAID ==
[~2020-03-17] MED LIST changes: -Albumin 25% 200 ML ONE
--- NOTE | 2020-03-17 12:21 | ULT ---
US Abdomen Limited History: Ascites Comparison: Paracentesis February 12, 2020 Findings: 4 cm images of the quadrant of the abdomen was performed. Moderate volume ascites. Impression: Moderate ascites.
== END ==
LOC: ULT 10:05
PROVIDERS: ATTEND Family Medicine
DX: K74.60 Unspecified cirrhosis of liver (principal); R18.8 Other ascites; E11.22 Type 2 diabetes mellitus with diabetic chronic kidney disease; N18.9 Chronic kidney disease, unspecified; D63.1 Anemia in chronic kidney disease; J45.909 Unspecified asthma, uncomplicated; Z79.4 Long term (current) use of insulin; Z79.899 Other long term (current) drug therapy; Z88.2 Allergy status to sulfonamides; Z88.6 Allergy status to analgesic agent; Z88.8 Allergy status to other drugs, medicaments and biological substances; Z91.013 Allergy to seafood; Z91.018 Allergy to other foods; Z95.1 Presence of aortocoronary bypass graft
CPT/HCPCS: 76705

== ENCOUNTER 2020-03-18 09:39 | Day surgery (SDC) | payer MEDICARE, MEDICAID ==
[2020-03-17 13:44] VITALS: BMI 23.1
[2020-03-18 10:18] LABS: #Eosinphils 0.1 thou/uL (0.0-0.7); #Lymphocytes 0.5 thou/uL (1.20-3.40); #Monocytes 0.4 thou/uL (0.11-0.59); #Neutrophils 3.8 thou/uL (1.40-6.50); %Eosinophils 2.3 % (0.0-10.0); %Neutrophils 78.8 % (42.0-75.0); Hemoglobin 10.2 g/dL (12.0-16.0); Mean Corpuscular HGB CONC 29.5 g/dL (32.0-36.0); Mean Corpuscular Hemoglobin 22.5 pg (27.0-31.0); Mean Corpuscular Volume 76.2 fL (78.0-98.0); Mean Platelet Volume 7.6 fL (7.4-10.4); Platelet Count 282 thou/uL (130-400); RBC Distribution Width 15.5 % (11.5-14.5); Red Blood Cell (RBC) Count 4.54 mill/uL (4.20-5.40); White Blood Cell (WBC) Count 4.8 thou/uL (4.8-10.8)
[2020-03-18 10:22] LABS: INR-International Normal Ratio 1.2; PTT 31.5 sec (22.9-36.1); Prothrombin Time 14.9 sec (12.0-14.7)
[2020-03-18 10:42] LABS: Hypochromia SLIGHT = 6-15 cells (100X) (0-5/hpf); MDiff Complete? YES; Microcytosis SLIGHT = 6-15 cells (100X) (0-5/hpf); Platelet Morphology Comment Appears Adequate; Polychromasia SLIGHT = 2-3 cells (100X) (0-2/hpf)
--- NOTE | 2020-03-18 11:34 | ULT ---
Exam: Ultrasound guided paracentesis HISTORY: Ascites COMPARISON: 02/12/2020 FINDINGS: Successful ultrasound-guided paracentesis. Total of 12.5 L of yellow color ascites was aspi rated. TECHNIQUE: Consent obtained reformatory ultrasound-guided paracentesis. Right lower quadrant was deem ed appropriate. Skin was prepped and draped in a sterile fashion. 1% lidocaine, buffered with sodium bicarbonate was used for local anesthesia. Under ultrasound guidance, a 5 Prydeinig 7 cm Yueh cat heter is advanced in the peritoneal space. A total of 12.5 L of yellow color ascites was aspirated. No immediate or postprocedural complications IMPRESSION: Successful ultrasound-guided paracentesis.
[2020-03-18] MEDS ORDERED: Albumin 25% 200 ML ONE (11:40)
[2020-03-18 14:07] VITALS: BP 112/63; TEMP 97
== END 2020-03-18 12:15 ==
LOC: ULT 09:39
PROVIDERS: ATTEND Family Medicine
PROC: 0W9G3ZZ Drainage of Peritoneal Cavity, Percutaneous Approach (ICD-10-PCS; principal; 2020-03-18)
PROC: BW40ZZZ Ultrasonography of Abdomen (ICD-10-PCS; 2020-03-18)
DX: K74.60 Unspecified cirrhosis of liver (principal); R18.8 Other ascites; E11.22 Type 2 diabetes mellitus with diabetic chronic kidney disease; N18.9 Chronic kidney disease, unspecified; D63.1 Anemia in chronic kidney disease; J45.909 Unspecified asthma, uncomplicated; Z79.4 Long term (current) use of insulin; Z79.899 Other long term (current) drug therapy; Z88.2 Allergy status to sulfonamides; Z88.6 Allergy status to analgesic agent; Z88.8 Allergy status to other drugs, medicaments and biological substances; Z91.013 Allergy to seafood; Z91.018 Allergy to other foods; Z95.0 Presence of cardiac pacemaker; Z95.1 Presence of aortocoronary bypass graft
CPT/HCPCS: 36600; 49083; 85025; 85610; 85730; P9047

== ENCOUNTER 2020-04-19 10:15 | Day surgery (SDC) | payer MEDICARE, MEDICAID ==
[2020-04-18 09:57] VITALS: BMI 20.7
--- NOTE | 2020-04-18 11:03 | HP ---
HISTORY OF PRESENT ILLNESS: Zaria Thomas is an 85-year-old female with biliary cirrhosis, requiring frequent paracentesis often up to 10 or 12 L. The patient is at [facility] under hospice care DNR. Her power of sheet metal erector Anastasia De La Rosa [phone], contact number for consents. The patient is referred by her hospice regarding peritoneal catheter, repetitive treatment of her ascites at the [place] without having to go to Radiology. The patient is in a wheelchair in my office with a boot on her left foot. She is not able to offer any reliable history and history and records were obtained from her chart in the computer. The patient had an echocardiogram this year that is unremarkable with normal ejection fraction, [id number] diastolic dysfunction. She has a pacemaker, left subclavian. She in 2003 had a coronary artery bypass grafting, 4 vessels and in 2008, aortic valve replacement, Dr. Pretty. She is followed by Dr. Manjeet Booker and Dr. David Monroy. CURRENT MEDICATIONS: Include: 1. Spironolactone. 2. Hyoscyamine. 3. P.r.n. Benadryl. 4. P.r.n. lorazepam. 5. Tylenol No. 3 p.r.n. 6. Ativan p.r.n. 7. Humalog insulin sliding scale. PAST MEDICAL HISTORY: Diabetes mellitus type 2, asthma, hyperlipidemia, stable coronary artery disease, history of AVR, history of PAD, diverticulosis. Colonoscopy is up to date. History of cirrhosis followed by Dr. Mason. History of left humerus fracture treated nonoperatively, frequent paracentesis. PAST SURGICAL HISTORY: Cardiac pacemaker, cardiac valve replacement, coronary bypass grafting, appendectomy, cataract surgery, toe amputation, podiatry foot surgery. FAMILY HISTORY: Father and mother . SOCIAL HISTORY: Tobacco none. Alcohol none. ALLERGIES: BACTRIM, INTRAVENOUS, LIPITOR, THEOPHYLLINE, ZOCOR, ASPIRIN, BYETTA, SULFA. PHYSICAL EXAMINATION: VITAL SIGNS: 133 pounds, 67 inches, 20 BMI. 117/62, 89, 97.5 degrees. LUNGS: Clear to auscultation. CARDIAC: Regular rate and rhythm. Pacemaker left chest. ABDOMEN: Soft, distended, protuberant, positive fluid wave. EXTREMITIES: Unremarkable. ASSESSMENT/PLAN: 1. Nonalcoholic cirrhosis with the coagulation studies recently negative or normal. We will not repeat these. We would plan laparoscopic PleurX catheter placement. I have discussed with the patient's power of sheet metal erector Anastasia De La Rosa per telephone [phone], who gives consent and we will obtain consent both for surgery and anesthesia per telephone with this power of sheet metal erector. Risks of infection, bleeding, reoperation, myocardial infarction, , stroke discussed, malfunction of the catheter discussed, questions answered. This is performed for palliative care and cardiac clearance is not necessary. under general anesthesia, laparoscopic placement of PleurX catheter outpatient as well as decompression of her ascites. 2. Coronary disease stable. 3. History of aortic valve replacement. 4. Dementia. 5. Nonambulatory. 6. [id number] status. 7. Diabetes mellitus. 8. Hypertension. Job ID: [id number]
[~2020-04-19 10:15] MED LIST changes: +Glycopyrrolate 0.2 MG/ML 5 ML SYRINGE ONE; +Ondansetron PF 4 MG/2 ML Vial ONE; +PHENYLEPHRINE-NS 100 MCG/ML 10 ML SYRINGE ONE; +PROPOFOL 200 MG/20 ML VIAL ONE; +Rocuronium Bromide 10 MG/ML (10ML VIAL) ONE; -Sodium Bicarbonate 2.5 MEQ/5 ML VIAL ONE
[2020-04-19] MEDS ORDERED: Fentanyl 100 MCG/2 ML VIAL ONE (11:30)
[2020-04-19] MEDS ORDERED: Bupivacaine HCl 0.5%/Epinephrine 1:200,000/PF 30 ml Vial ONE (11:56)
[2020-04-19] MEDS ORDERED: SUGAMMADEX SODIUM 500 MG/5 ML VIAL ONE (11:59)
[2020-04-19] MEDS ORDERED: SUGAMMADEX SODIUM 200 MG/2 ML VIAL ONE (12:00)
[2020-04-19] MEDS ORDERED: Promethazine HCl 25 MG/ML VIAL SLOW IVP PRN (12:13)
[2020-04-19] MEDS ORDERED: Promethazine HCl 25 MG/ML VIAL IM PRN (12:13)
[2020-04-19] MEDS ORDERED: Morphine Sulfate 2 MG/ML SYRINGE SLOW IVP PRN (12:13)
--- NOTE | 2020-04-19 18:14 | OP ---
DATE OF PROCEDURE: 04/19/2020 PREOPERATIVE DIAGNOSES: Cirrhosis, end-stage with refractory ascites, hospice care. POSTOPERATIVE DIAGNOSES: Cirrhosis, end-stage with refractory ascites, hospice care. PROCEDURE PERFORMED: Laparoscopic evacuation of 12.3 L of ascites, laparoscopic placement of peritoneal catheter, PleurX catheter for ascites evacuation, hospice snf. ANESTHESIA: General, local 0.5% Marcaine with epinephrine 30 mL. DESCRIPTION OF PROCEDURE: The patient was taken to the operating room, where under general anesthesia, abdomen was prepared with ChloraPrep and draped in routine fashion. Local anesthetic was infiltrated in the skin and subcutaneous tissue about the operative site. Bilateral far lateral subcostal incision made, pneumoperitoneum to 15 mmHg was obtained with a Veress needle, placed a contralateral port under laparoscopic visualization. 12.3 L of ascites evacuated. Liver noted to be cirrhotic. A PleurX catheter placed through the right lower quadrant incision, tunneling device directed caudally through the subcutaneous tissue, visualized laparoscopically through the rectus sheath into the abdominal cavity dependently, placed in a PleurX catheter and the cuff beneath the skin exit site. Peel-Away sheath removed. Irrigant pneumoperitoneum evacuated. All instruments were removed. All skin incisions were approximated with interrupted subdermal 4-0 Monocryl and [place] glue applied. Sterile dressings applied. Job ID: [id number]
== END 2020-04-19 14:33 ==
LOC: SDC 10:15
PROVIDERS: ATTEND Specialist
PROC: 0WHG43Z Insertion of Infusion Device into Peritoneal Cavity, Percutaneous Endoscopic Approach (ICD-10-PCS; principal; 2020-04-19)
DX: K74.60 Unspecified cirrhosis of liver (principal); R18.8 Other ascites; I25.10 Atherosclerotic heart disease of native coronary artery without angina pectoris; F03.90 Unspecified dementia, unspecified severity, without behavioral disturbance, psychotic disturbance, mood disturbance, and anxiety; E11.9 Type 2 diabetes mellitus without complications; I10 Essential (primary) hypertension; E78.5 Hyperlipidemia, unspecified; M19.90 Unspecified osteoarthritis, unspecified site; J45.909 Unspecified asthma, uncomplicated; Z66 Do not resuscitate; Z79.4 Long term (current) use of insulin; Z79.899 Other long term (current) drug therapy; Z88.2 Allergy status to sulfonamides; Z88.6 Allergy status to analgesic agent; Z88.8 Allergy status to other drugs, medicaments and biological substances; Z91.013 Allergy to seafood; Z91.018 Allergy to other foods; Z95.0 Presence of cardiac pacemaker; Z95.1 Presence of aortocoronary bypass graft
CPT/HCPCS: 36416; C1729; J1642; J2405; J2704; J3010

== ENCOUNTER 2020-06-13 09:52 | Day surgery (SDC) | payer MEDICARE, MEDICAID ==
[2020-06-13 10:42] VITALS: BP 121/73; TEMP 97.5
[2020-06-13 10:47] LABS: #Eosinphils 0.1 thou/uL (0.0-0.7); #Lymphocytes 0.6 thou/uL (1.20-3.40); #Monocytes 0.5 thou/uL (0.11-0.59); %Basophils 0.3 % (0.0-1.0); %Eosinophils 1.6 % (0.0-10.0); %Lymphocytes 8.1 % (21.0-51.0); %Monocytes 7.1 % (0.0-10.0); %Neutrophils 82.8 % (42.0-75.0); Hemoglobin 9.6 g/dL (12.0-16.0); Mean Corpuscular HGB CONC 29.1 g/dL (32.0-36.0); Mean Corpuscular Hemoglobin 21.1 pg (27.0-31.0); Mean Corpuscular Volume 72.6 fL (78.0-98.0); Mean Platelet Volume 7.6 fL (7.4-10.4); Platelet Count 415 thou/uL (130-400); RBC Distribution Width 16.4 % (11.5-14.5); Red Blood Cell (RBC) Count 4.53 mill/uL (4.20-5.40); White Blood Cell (WBC) Count 7.2 thou/uL (4.8-10.8)
[2020-06-13 11:14] LABS: INR-International Normal Ratio 1.2; PTT 36.5 sec (22.9-36.1)
[2020-06-13] MEDS ORDERED: Sodium Bicarbonate 2.5 MEQ/5 ML VIAL ONE (11:22)
[2020-06-13] MEDS ORDERED: Lidocaine 1% PF 5 ML VIAL ONE (11:22)
[2020-06-13 11:53] LABS: Hypochromia SLIGHT = 6-15 cells (100X) (0-5/hpf); MDiff Complete? YES; Microcytosis SLIGHT = 6-15 cells (100X) (0-5/hpf); Platelet Morphology Comment Appears Increased; Polychromasia SLIGHT = 2-3 cells (100X) (0-2/hpf)
--- NOTE | 2020-06-13 12:45 | ULT ---
Paracentesis sonographic guided HISTORY: Recurrent symptomatic ascites. FINDINGS: After explaining the procedure and answering all questions, sonographic survey showed a lar ge amount of free fluid throughout the abdomen. Sterile technique, buffered local anesthesia, sonographic guidance, and a right lower quadrant approa ch were used to carefully advance the tip of a 19-gauge Yueh needle and catheter into the free fluid. Catheter was left to drain a total volume of 6.4 L cloudy yellow liquid. Additional fluid was not drained because of patient's history of hypotension with large volume draina ge. Catheter was removed with large amount of fluid remaining. Patient tolerated the procedure well and w as returned in improved condition. IMPRESSION : Technically successful sonographic guided paracentesis. Drainage limited to 6.4 L due to prior hypote nsive episodes with high-volume drainage. Large amount of fluid remains.
== END 2020-06-13 12:10 ==
LOC: ULT 09:52
PROVIDERS: ATTEND Family Medicine
PROC: 0W9G3ZZ Drainage of Peritoneal Cavity, Percutaneous Approach (ICD-10-PCS; principal; 2020-06-13)
PROC: BW40ZZZ Ultrasonography of Abdomen (ICD-10-PCS; 2020-06-13)
DX: K74.60 Unspecified cirrhosis of liver (principal); R18.8 Other ascites; I12.9 Hypertensive chronic kidney disease with stage 1 through stage 4 chronic kidney disease, or unspecified chronic kidney disease; E11.22 Type 2 diabetes mellitus with diabetic chronic kidney disease; N18.30 Chronic kidney disease, stage 3 unspecified; E78.5 Hyperlipidemia, unspecified; F41.9 Anxiety disorder, unspecified; F32.9 Major depressive disorder, single episode, unspecified; J45.909 Unspecified asthma, uncomplicated; D64.9 Anemia, unspecified; Z79.4 Long term (current) use of insulin; Z79.899 Other long term (current) drug therapy; Z88.2 Allergy status to sulfonamides; Z88.6 Allergy status to analgesic agent; Z88.8 Allergy status to other drugs, medicaments and biological substances; Z91.011 Allergy to milk products; Z91.018 Allergy to other foods; Z91.013 Allergy to seafood; Z95.0 Presence of cardiac pacemaker; Z95.1 Presence of aortocoronary bypass graft; Z95.2 Presence of prosthetic heart valve; Z91.5 Personal history of self-harm
CPT/HCPCS: 49083; 85025; 85610; 85730

== ENCOUNTER 2020-07-08 07:46 | Day surgery (SDC) | payer MEDICARE ==
[2020-07-07 14:17] VITALS: BMI 23.1
[2020-07-08 09:34] VITALS: BP 106/62; TEMP 97.2
--- NOTE | 2020-07-08 09:36 | ULT ---
Paracentesis sonographic guided HISTORY: Symptomatic ascites. FINDINGS: After explaining the procedure and answering all questions, sonographic survey showed a lar ge amount of free fluid throughout the abdomen. Sterile technique, buffered local anesthesia, sonographic guidance, and a right lateral approach were used to carefully advance a 19-gauge Yueh needle and catheter into the free fluid. Catheter was left to drain a total volume of 7.0 L cloudy light yellow fluid. Catheter was removed with moderate amount of fluid remaining. Patient tolerated the procedure well and was dismissed in good condition. IMPRESSION : Technically successful sonographic guided paracentesis. 7.0 L. Moderate residual.
== END 2020-07-08 08:45 ==
LOC: ULT 07:46
PROVIDERS: ATTEND Family Medicine
PROC: 0W9G3ZZ Drainage of Peritoneal Cavity, Percutaneous Approach (ICD-10-PCS; principal; 2020-07-08)
DX: K74.60 Unspecified cirrhosis of liver (principal); R18.8 Other ascites; K76.0 Fatty (change of) liver, not elsewhere classified; I12.9 Hypertensive chronic kidney disease with stage 1 through stage 4 chronic kidney disease, or unspecified chronic kidney disease; E11.22 Type 2 diabetes mellitus with diabetic chronic kidney disease; E11.40 Type 2 diabetes mellitus with diabetic neuropathy, unspecified; N18.9 Chronic kidney disease, unspecified; G43.909 Migraine, unspecified, not intractable, without status migrainosus; J45.909 Unspecified asthma, uncomplicated; D64.9 Anemia, unspecified; I25.10 Atherosclerotic heart disease of native coronary artery without angina pectoris; I48.91 Unspecified atrial fibrillation; F03.90 Unspecified dementia, unspecified severity, without behavioral disturbance, psychotic disturbance, mood disturbance, and anxiety; F41.9 Anxiety disorder, unspecified; F32.9 Major depressive disorder, single episode, unspecified; I73.9 Peripheral vascular disease, unspecified; E78.5 Hyperlipidemia, unspecified; L40.9 Psoriasis, unspecified; Z79.899 Other long term (current) drug therapy; Z88.2 Allergy status to sulfonamides; Z88.6 Allergy status to analgesic agent; Z88.8 Allergy status to other drugs, medicaments and biological substances; Z91.018 Allergy to other foods
CPT/HCPCS: 49083; 90732; G0009; 90471